=== PATIENT | female | born 1985 | race Caucasian/White ===

== ENCOUNTER → 2017-09-14 09:11 | Outpatient (CLI) | payer MEDICAID, SELFPAY ==
--- NOTE | 2017-09-14 09:18 | MRI_ITS ---
STUDY: MRI BRAIN WITH AND WITHOUT CONTRAST REASON FOR EXAM: Female, 32 years old. Follow-up exam. Multiple sclerosis TECHNIQUE: Standardized multiplanar fat and water weighted pulse sequences were obtained. 5 ml of Gadavist contrast material was administered intravenously for the contrast portion of the examination. COMPARISON: June 23, 2016 MRI exam. FINDINGS: No evidence for shift of midline structures, mass effect or compression of ventricles noted. No acute intra or extra-axial hemorrhage is seen. No abnormal intracranial fluid collections identified. There is redemonstration of scattered foci of T2/FLAIR hyperintensity in the periventricular and subcortical white matter noted which appear essentially similar to previous examination likely related with patient's known history of demyelinating disease. Infratentorial lesions are also seen in the posterior aspect of the aaliyah. No associated enhancement is seen to suggest active demyelinating plaques No discrete mass in the posterior fossa. Minimal mucosal thickening of the ethmoid air cells. Normal signal intensity of the calvarium. Skull base vascular flow voids are patent. MRI/Brain W/WO Contrast IMPRESSION: Stable appearing T2/FLAIR hyperintense signal intensity foci in the supra and infratentorial compartment consistent with patient's known history of demyelinating disease. No active demyelinating plaques seen. Electronically Signed: Alex Siegel, at 12:12 EST Tel , Service support ,
== END ==
PROVIDERS: Family Provider Internal Medicine; PCP Internal Medicine; Visit Provider Internal Medicine
DX: G35 Multiple sclerosis (principal)
CPT/HCPCS: 70553; A9585

== ENCOUNTER → 2018-08-21 13:03 | Outpatient (CLI) | payer OTHER, MEDICAID, SELFPAY ==
[2018-08-21 13:25] VITALS: BP 137/81; PULSE 86; RESP 16; TEMP 37.3; O2SAT 99; BMI 18.6
== END ==
PROVIDERS: Family Provider Internal Medicine; PCP Internal Medicine; Visit Provider Internal Medicine
DX: G35 Multiple sclerosis (principal)
CPT/HCPCS: 96365; J7050; A4216; J2930

== ENCOUNTER → 2018-08-22 10:14 | Outpatient (CLI) | payer OTHER, MEDICAID, SELFPAY ==
[2018-08-21 13:25] VITALS: BMI 18.6
[2018-08-22 11:01] VITALS: BP 151/94; PULSE 80; RESP 16; TEMP 36.4; O2SAT 98; BMI 18.6
== END ==
PROVIDERS: Family Provider Internal Medicine; PCP Internal Medicine; Referring Provider Internal Medicine; Visit Provider Internal Medicine
DX: G35 Multiple sclerosis (principal)
CPT/HCPCS: 96365; J7050; J2930

== ENCOUNTER 2018-08-23 10:16 | Outpatient (CLI) | payer OTHER, MEDICAID, SELFPAY ==
[2018-08-21 13:25] VITALS: BMI 18.6
[2018-08-22 11:01] VITALS: BMI 18.6
[2018-08-23 10:31] VITALS: BP 135/94; PULSE 74; RESP 14; TEMP 37.1; O2SAT 100
[2018-08-23] MEDS: 0.9% NaCl Peripheral Flush Adult/Peds IV (12:43)
== END 2018-08-23 12:40 | disposition home or self-care (01) ==
LOC: MEDOUTP 10:16 → MS3 10:23
PROVIDERS: Family Provider Internal Medicine; PCP Internal Medicine; Referring Provider Internal Medicine; Visit Provider Internal Medicine
DX: G35 Multiple sclerosis (principal)
CPT/HCPCS: 96365; A4216; J2930

== ENCOUNTER 2018-08-24 10:16 | Outpatient (CLI) | payer OTHER, MEDICAID, SELFPAY ==
[2018-08-21 13:25] VITALS: BMI 18.6
[2018-08-22 11:01] VITALS: BMI 18.6
[2018-08-24 10:41] VITALS: BP 123/78; PULSE 85; RESP 18; TEMP 37.1; O2SAT 98
[2018-08-24] MEDS: 0.9% NaCl Peripheral Flush Adult/Peds IV (12:07)
== END 2018-08-24 12:03 | disposition home or self-care (01) ==
LOC: MEDOUTP 10:16 → MS3 10:17
PROVIDERS: Family Provider Internal Medicine; PCP Internal Medicine; Referring Provider Internal Medicine; Visit Provider Internal Medicine
DX: G35 Multiple sclerosis (principal)
CPT/HCPCS: 96365; A4216; J2930

== ENCOUNTER → 2018-08-25 10:00 | Outpatient (CLI) | payer OTHER, MEDICAID, SELFPAY ==
[2018-08-21 13:25] VITALS: BMI 18.6
[2018-08-22 11:01] VITALS: BMI 18.6
[2018-08-25 10:21] VITALS: BP 132/88; PULSE 72; RESP 18; TEMP 37.7; O2SAT 99; BMI 18.6
== END ==
PROVIDERS: Family Provider Internal Medicine; PCP Internal Medicine; Referring Provider Internal Medicine; Visit Provider Internal Medicine
DX: G35 Multiple sclerosis (principal)
CPT/HCPCS: 96365; J7050; A4216; J2930

== ENCOUNTER → 2019-04-13 17:47 | Outpatient (CLI) | payer OTHER, SELFPAY ==
[2018-08-25 10:21] VITALS: BMI 18.6
[2019-04-16 14:55] LABS: HPV Reflexed? NOT INDICATED
== END ==
PROVIDERS: Family Provider Family Medicine; PCP Family Medicine; Referring Provider Nurse Practitioner Adult Health; Visit Provider Nurse Practitioner Adult Health
DX: Z01.419 Encounter for gynecological examination (general) (routine) without abnormal findings (principal)
CPT/HCPCS: 88175; G0145

== ENCOUNTER → 2019-05-02 07:27 | Outpatient (CLI) | payer OTHER, SELFPAY ==
[2018-08-25 10:21] VITALS: BMI 18.6
--- NOTE | 2019-05-02 07:41 | MRI_ITS ---
STUDY: MRI BRAIN WITH AND WITHOUT CONTRAST REASON FOR EXAM: Female, 33 years old. Paresthesias, possible sclerosis. TECHNIQUE: Standardized multiplanar fat and water weighted pulse sequences were obtained. IV Dotarem 10 was administered for the contrast portion of the examination. COMPARISON: 14 September 2017 FINDINGS: There are 2 new enhancing approximately 5 mm lesions along the anterior periventricular subependymoma white matter of the right frontal lobe along the lateral surface of the lateral ventricles. There is a new enhancing left internal capsule genu 1 cm lesion. There is extensive disease burden of multiple sclerosis with greater than 25 lesions and at least 5 lesions greater than 1 cm. The number and size of lesions appears mildly increased compared to prior. There is no acute infarct, hydrocephalus or herniation. Vascular structures are preserved. MRI/Brain W/WO Contrast IMPRESSION: 1. Active disease progression. 2. Three new enhancing lesions of multiple sclerosis. 3. Severe chronic disease burden multiple sclerosis. Electronically Signed: Elaine Giles, at 16:26 EDT Tel , Service support ,
--- NOTE | 2019-05-02 07:41 | MRI_ITS ---
STUDY: MRI CERVICAL SPINE WITH AND WITHOUT CONTRAST REASON FOR EXAM: Female, 33 years old. Multiple sclerosis TECHNIQUE: Standardized fat and water weighted pulse sequences were obtained in the sagittal and axial following administration of IV Dotarem 10. COMPARISON: None FINDINGS: Craniocervical junction and cervical spine are intact and aligned. Marrow, paraspinous soft tissues are normal. The canal is patent at all levels. There are multiple cord lesions. C2 level lesion measures 1.3 cm and involves the central posterior portion of the cord. C5 lesion measures 6 mm. C6 lesion is ill-defined and measures 1.2 cm and involves the left central portion of the cord. Smaller lesions are present at other levels. There are no enhancing lesions. Spinal cord is normal in size and shape. MRI/Spine Cervical W/WO Contrast IMPRESSION: 1. No enhancing cord lesions. 2. Advanced lesion burden and possible multiple sclerosis. Electronically Signed: Elaine Giles, at 16:37 EDT Tel , Service support ,
--- NOTE | 2019-05-02 08:33 | US_ITS ---
STUDY: THYROID ULTRASOUND REASON FOR EXAM: Female, 33 years old. Thyroid nodule TECHNIQUE: Ultrasound evaluation of the thyroid was performed with real-time and static ryder-scale imaging. COMPARISON: None. FINDINGS: RIGHT LOBE: The right lobe of the thyroid gland measures 5.7 x 1.4 x 1.8 cm. There is a homogeneous echotexture. Anechoic cyst of the right thyroid lobe measures 4 mm. The inferior right thyroid lobe, there is a 1.2 x 1.1 cm solid, isoechoic nodule with some small cystic transformation foci (TIRADS3). LEFT LOBE: The left lobe of the thyroid gland measures 5.5 x 1.6 x 1.6 cm. There is a homogeneous echotexture. There are no demonstrated solid, cystic or complex lesions. ISTHMUS: The isthmus measures 3.0 mm. Completely solid nodule of the left side of the isthmus measures 1.9 x 1.4 x 0.9 cm with smooth margins and mild amount of vascular flow. No definitive microcalcifications. TIRADS 4. The regional lymph nodes are normal. US/Thyroid IMPRESSION: Multinodular thyroid gland with the largest measuring 1.9 cm (left side isthmus). FNA sampling recommended. Electronically Signed: Barrett Yuan MD (Brooks) at 16:37 EDT , Service support ,
== END ==
PROVIDERS: Family Provider Family Medicine; PCP Family Medicine; Referring Provider Internal Medicine; Visit Provider Internal Medicine
DX: E04.1 Nontoxic single thyroid nodule (principal); G35 Multiple sclerosis
CPT/HCPCS: 70553; 72156; 76536; A9575

== ENCOUNTER → 2019-06-11 08:59 | Outpatient (CLI) | payer OTHER, SELFPAY ==
[2019-06-11 08:30] VITALS: BMI 18.6
[2019-06-11 10:57] LABS: Free T3 2.6 pg/mL (2.18-3.98); T4 Total, Thyroxin 9.2 ug/dL (4.8-13.9); Thyroid Stim Hormone (TSH) 0.34 uIU/mL (0.358-3.74)
== END ==
PROVIDERS: Family Provider Family Medicine; PCP Family Medicine; Referring Provider Surgery; Visit Provider Surgery
DX: E04.1 Nontoxic single thyroid nodule (principal)
CPT/HCPCS: 36415; 84436; 84443; 84481

== ENCOUNTER → 2019-06-16 12:30 | Outpatient (CLI) | payer OTHER, SELFPAY ==
[2019-06-16 12:25] VITALS: BMI 18.6
--- NOTE | 2019-06-16 12:30 | ASPS_PTH ---
PATIENT: ISRAEL GALE LOC: [facility] U#:[id number] AGE/SX: 39/F ROOM: RE06/16/[address]: Dr. Jomar Calero MD : 1985 BED: DIS: SPEC #: [id number] RECD: 06/17/19 07:42 STATUS: TYLER PAVAN #: [id number] JN: 06/16/19 12:[address]: Jomar Calero DEPT: CYTOLOGY RECD BY: Azul Garner ENTERED: 06/17/19 09:57 SP TYPE: ASPIRATION OTHR DR: Dr. Adonis Mays MD Tissues: A - Thyroid gland, NOS B - Thyroid gland, NOS Procedures: Special Stain Group II Cytology Other HEADER OPERATION: Bilateral thyroid FNA PRE-OP DIAGNOSIS: Bilateral thyroid nodules TISSUE SUBMITTED: A. Left thyroid, B. Right thyroid DIAGNOSIS CYTOLOGY A. Fine needle aspiration of left thyroid nodule (smears): Adequate for evaluation. Benign, consistent with benign follicular nodule. B. Fine needle aspiration of right thyroid nodule (smears): Adequate for evaluation. 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 AM:maria l 06/17/19 COMMENT Immediate cytologic evaluation to determine adequacy is not applicable. Clinical correlation is suggested. Case has been reviewed in consultation with Dr. Nunez who concurs with the above diagnosis. IDC:SJ CYTOLOGY STUDY Slides are reviewed. CYTOLOGY GROSS A. Received are 6 smears labeled with the patient's name and designated per the requisition as left thyroid. Submitted for staining. B. Received are 6 smears labeled with the patient's name and designated per the requisition as right thyroid. Submitted for staining. /CC:cc 06/17/19 TC:? CPT: 68528 x2
== END ==
PROVIDERS: Family Provider Family Medicine; PCP Family Medicine; Visit Provider Surgery
DX: E04.2 Nontoxic multinodular goiter (principal)
CPT/HCPCS: 88161; 88313

== ENCOUNTER 2019-08-05 11:20 | Observation (INO) | payer OTHER, SELFPAY ==
[2019-06-26 13:11] VITALS: BMI 18.6
[2019-08-03 08:24] VITALS: BMI 18.6
--- NOTE | 2019-08-03 08:50 | HP_ITS ---
Intake Vital Signs 08/03/19 BMI 18.6 08/03/19 Height 5 ft 6 in 08/03/19 Weight: 117 lb 08/03/19 BMI 18.8 08/03/19 BP 128/87 H 08/03/19 Blood Pressure Location Rt brachial 08/03/19 Position Sitting 08/03/19 Respiration 18 Intake Visit Reasons: update h&p totla thyroid Rc 1-15 Chief Complaint: Follow up thyroid biopsy Brake Holder Required: No Is patient in pain?: No Allergies No Known Allergies Allergy (Verified 08/03/19 08:24) Medications Armodafinil [Nuvigil] 250 mg PO DAILY 08/22/18 [History Confirmed 08/03/19] Cholecalciferol (Vitamin D3) [Vitamin D3] 2,000 unit PO DAILY 08/22/18 [History Confirmed 08/03/19] Duloxetine HCl 60 mg PO DAILY 08/22/18 [History Confirmed 08/03/19] Multivitamin [One Daily Multivitamin] 1 ea PO DAILY 08/22/18 [History Confirmed 08/03/19] Ocrelizumab [Ocrevus] 300 mg IV .Q6M 07/29/19 [History Confirmed 08/03/19] PFSH Medical History Multiple sclerosis (Acute) Multiple thyroid nodules (Acute) Anxiety (Acute) Depression (Acute) Numbness and tingling (Acute) Fatigue (Acute) Surgical History Hx of wisdom tooth extraction (Acute) History of loop electrical excision procedure (LEEP) (Acute) Status post biopsy of thyroid gland (Acute ~05/2019) Family History Mother No problems noted. Social History (Updated 08/03/19 @ 08:50 by Krystle Goldman PA-C) Smoking Status: Never smoker second hand exposure: No alcohol intake: current alcohol intake frequency: a few times a month substance use type: does not use caffeine: Yes what type of physical activity do you participate in: none frequency: does not exercise HPI HPI HPI: ISRAEL MANRIQUEZ, is a 34 F who presents to the office today for HPI HPI Surgical H&P: Yes HPI: ISRAEL MANRIQUEZ, is a 34 F who presents to the office today for an update history and physical for an upcoming total thyroidectomy procedure. Patient denies recent hospitalizations or illnesses. Patient does have M.S. Her neurologist has been contacted and recommended the patient stay on her current medication regimen for the surgery. She denies previous myocardial infarction, stroke, or complications with anesthesia. Patient's previous history per Dr. Calero: ISRAEL MANRIQUEZ, is a 33 F who presents to the office today for thyroid nodules and cytology. My previous notes reflect the following. She had incidental isthmus nodule in the left and lower pole right thyroid nodule identified on his CT scan performed because of a head injury. On June 16, 2019 I did a fine needle aspiration of each. The more suspicious left isthmus nodule is a benign follicular nodule. The solid cystic lower pole right thyroid nodule is atypical follicular cells of undetermined significance and Hurthle cell features. The patient has MS. She has a new neurologist Dr. Oneil Reardon. [phone]. She states that he will be starting her on a new medication with first dosing July 10, 2019 and second dose in July 24, 2019 and then every 6 months HPI: ISRAEL MANRIQUEZ, is a 33 F who presents to the office today for surgical consultation regarding a left thyroid nodule. The patient is referred by Dr. Adonis Mays and a written compromise surgical consult recommendations will be returned to him. Patient is a 33-year-old female. She is accompanied by her mother today. Chronic medical condition includes multiple sclerosis. While swimming she hit her head on the bottom of pool and this stimulated investigation into her neck. And so doing thyroid abnormality was identified. To assist with this on May 02, 2019 at the [facility] she had a thyroid ultrasound performed. The right lobe measured 5.7 cm in length. In the upper pole there is a 4 mm cyst. In the lower pole there is a 1.2 x 1.1 cm solid nodule with some cystic transformation. TIRADS3 The left thyroid gland measures 5.5 cm. No demonstrated nodule. The isthmus has a solid nodule in the left measuring 1.9 x 1.4 x 0.9 cm with some slight vascular flow.Tirads4 She has no consistent symptoms of hoarseness or neck pain or dysphasia. She does have intermittent symptoms of all of these. She has not had any head neck radiation treatment. [facility] Services [address] [place] [address] Thyroid MR#: [id number]:[id number] Name: ISRAEL GALE [facility] #:[id number] : 1985F 33 From: Barrett Yuan MD PCP:Adonis Mays MD Status:REG CLI Study:Thyroid Date of Exam:05/02/19 Exam#[id number] Ordering Dr: Adonis Mays MD STUDY: THYROID ULTRASOUND REASON FOR EXAM: Female, 33 years old. Thyroid nodule TECHNIQUE: Ultrasound evaluation of the thyroid was performed with real-time and static ryder-scale imaging. COMPARISON: None. FINDINGS: RIGHT LOBE: The right lobe of the thyroid gland measures 5.7 x 1.4 x 1.8 cm. There is a homogeneous echotexture. Anechoic cyst of the right thyroid lobe measures 4 mm. The inferior right thyroid lobe, there is a 1.2 x 1.1 cm solid, isoechoic nodule with some small cystic transformation foci (TIRADS3). LEFT LOBE: The left lobe of the thyroid gland measures 5.5 x 1.6 x 1.6 cm. There is a homogeneous echotexture. There are no demonstrated solid, cystic or complex lesions. ISTHMUS: The isthmus measures 3.0 mm. Completely solid nodule of the left side of the isthmus measures 1.9 x 1.4 x 0.9 cm with smooth margins and mild amount of vascular flow. No definitive microcalcifications. TIRADS 4. The regional lymph nodes are normal. US/Thyroid IMPRESSION: Multinodular thyroid gland with the largest measuring 1.9 cm (left side isthmus). FNA sampling recommended. Electronically Signed: Barrett Yuan MD (Brooks) at 16:37 EDT , Service support , Spec Date: 06/16/[address] [facility] [address]: [facility] OPERATION: Bilateral thyroid FNAPRE-OP DIAGNOSIS: Bilateral thyroid nodulesTISSUE SUBMITTED: A. Left thyroid, B. Right thyroid DIAGNOSIS CYTOLOGY A. Fine needle aspiration of left thyroid nodule (smears):Adequate for evaluation.Benign, consistent with benign follicular nodule. B. 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 ROS General General: Yes fatigue; no weight change, appetite, colon cancer, breast cancer or weakness HEENT HEENT: No difficulty swallowing, eye injury, eye surgery, swollen glands or hoarseness Endo Endocrine: No thyroid disease, diabetes mellitus, thyroid cancer, Hair loss, heat intolerance or cold intolerance Skin Skin: No rash or changing moles Musc Musculoskeletal: No back problems, arthritis, rheumatoid arthritis, gout or joint pain Cardio Cardiovascular: No murmur, pacemaker, heart disease, atrial fibrillation, high blood pressure, heart attack, heart stent, palpitations, shortness of breat with exertion or chest pain Psych Psychiatric: Yes depression and anxiety; no hearing voices Resp Respiratory: No shortness of breath, No sleep apnea, No cough, No COPD, No asthma, No emphysema, No wheezing Gastro Gastrointestinal: No abdominal pain, No nausea or vomiting, No diarrhea, No constipation, No blood in stool, No acid reflux, No hemorrhoids, No ulcers, No gallbladder problem, No black,tarry stools Leoncio Hematologic: No blood thinners, No blood disorders, No bleeding, No anemia, No blood clots Neuro Neurologic: No weakness Exam Const General: cooperative, healthy appearing, comfortable, no acute distress [facility] Head: normal to inspection Eyes General: appearance normal, both eyes and all related structures Neck Neck: normal visual inspection Neck mass: No Resp Effort & Inspection: normal respiratory effort Auscultation: clear to auscultation bilaterally Cardio Palpation: normal PMI Rate: regular rate Rhythm: regular rhythm Heart Sounds: no murmurs GI Inspection: normal to inspection Palpation: soft Auscultation: normal bowel sounds Skin General: no rashes or lesions noted Neuro General: no focal motor deficits, CN's II-XI intact bilaterally Extrem General: normal to inspection Psych Appearance: grossly normal Affect: normal affect Assessment & Plan Problems 1. Multiple thyroid nodules E04.2 2. Multiple sclerosis G35 Plan Dr. Calero will plan to perform a total thyroidectomy. Procedure details, risks and benefits have been reviewed. Patient has had the opportunity to ask and have questions answered. Patient verbally understands and agrees with the plan. Coding Level of Care Code No Charge Diagnoses Multiple thyroid nodules E04.2 Multiple sclerosis G35 08/03/19 0850 <Electronically signed by Krystle light PA-C> Date _ Krystle Goldman PA-C
[2019-08-05] VITALS (12 sets, daily range): BP systolic 97–133; BP diastolic 58–91; PULSE 61–97; RESP 14–18; TEMP 36.6–37.3; O2SAT 96–100; BMI 19.9
--- NOTE | 2019-08-05 | IMM_PTH ---
PATIENT: ISRAEL GALE LOC: [facility] U#:[id number] AGE/SX: 34/F ROOM: MS316 RE08/05/[address]: Dr. Jomar Calero MD : 1985 BED: 1 DIS: 08/06/2019 SPEC #: [id number] RECD: 08/07/19 13:31 STATUS: SOUVangie REQ #: [id number] JN: 08/05/19 00:[address]: Jomar Calero DEPT: IMMUNOHISTOCHEMISTRY RECD BY: Herlinda Olmos ENTERED: 08/07/19 13:32 SP TYPE: IMMUNO OTHR DR: Dr. Adonis Mays MD Tissues: B - Thyroid gland, NOS Procedures: HBME (initial) CD56 (add) CK19 (add) GAL-3 (add) Comments: @ Specimen number changed from [id number] to [id number] @ on 08/07/19 at 1341 by RGOOD. PHYSICIAN & [address] [address] SPECIMEN INFORMATION: Tissue Source: B - Total thyroid Clinical Info: Multiple thyroid nodules Specimen Number: [id number] B7 CPT code: 01268, 29204 x3 METHODOLOGY: Deparaffinized sections of prefer/formalin-fixed tissue or PAP/DQ stained slides are incubated with monoclonal/polyclonal antibodies/oligonucleotide probes. Localization is made via biotin free immunoperoxidase method. Appropriate controls are performed and reacted as expected. Results on target cell population are indicated in the following table: RESULTS: ANTIBODY / CLONE RESULT Block B7 HBME1 (HBME-1) negative CK19 (A53-B/A2.26) positive, focal GAL3 (9C4) negative CD56 (123C3.D5) positive These tests were developed and their performance characteristics determined by [facility]. They may not have been cleared or approved by the U.S. Food and Drug Administration. The FDA has determined that such clearance or approval is not necessary. The above immunohistochemical/dualISH markers are ordered and reviewed by the Pathologist. INTERPRETATION: B. Thyroid, total thyroidectomy: Consistent with adenomatoid colloid nodule. SJ:maria l 08/10/19
--- NOTE | 2019-08-05 | THYROID_PTH ---
PATIENT: ISRAEL GALE LOC: [facility] U#:[id number] AGE/SX: 34/F ROOM: MS316 RE08/05/[address]: Dr. Jomar Calero MD : 1985 BED: 1 DIS: 08/06/2019 SPEC #: [id number] RECD: 08/05/19 08:31 STATUS: TYLER PAVAN #: [id number] JN: 08/05/19 00:[address]: Jomar Calero DEPT: SURGICAL PATHOLOGY RECD BY: Herlinda Olmos ENTERED: 08/05/19 08:57 SP TYPE: THYROID OTHR DR: Dr. Adonis Mays MD Tissues: A - Thyroid gland, NOS B - Thyroid gland, NOS Procedures: Frozen Section (charge) Surgery Specimen Level IV Surgery Specimen Level V HEADER OPERATION: Total thyroidectomy PRE-OP DIAGNOSIS: Multiple thyroid nodules E04.2 TISSUE SUBMITTED: A - Left superior thyroid tissue for FS at 0825, B - Total thyroid, stitch chance superior right FROZEN SECTION DIAGNOSIS A. Left superior thyroid tissue, biopsy: Thyroid tissue. SJ:maria l 08/05/19 MICROSCOPIC DIAGNOSIS A. Superior thyroid tissue: Thyroid tissue. B. Thyroid, total thyroidectomy: Multinodular goiter with adenomatoid nodules. See comment. PURNIMA:maria l 08/07/19 COMMENT B. Immunohistochemistry ([id number]) supports the above diagnosis. Please make reference to previous specimen ([id number]) fine needle aspiration of left thyroid nodule with diagnosis of benign, consistent with benign follicular nodule and fine needle aspiration of right thyroid nodule with diagnosis of atypical follicular cells of undetermined clinical significance with H?rthle cell features. Case has been reviewed in consultation with Dr. Nicholson who concurs with the above diagnosis. IDC:AM MICROSCOPIC DESCRIPTION Slides are reviewed. GROSS DESCRIPTION A - Received fresh for frozen section diagnosis labeled with the patient's name is a specimen designated left superior thyroid tissue. The specimen consists of a piece of mack soft tissue measuring 0.5 x 0.3 x 0.1 cm. The entire specimen is submitted for frozen section diagnosis in one cassette. B - Received in fixative is one container labeled with the patient's name and designated total thyroid, stitch chance superior right. The specimen consists of a total thyroidectomy specimen weighing 20.9 gm. The right lobe measures 4.5 x 2.5 x 2.5 cm and the left lobe measures 5.5 x 3 x 1.5 cm and the isthmus measures 0.2 x 0.2 x 0.2 cm. No external parathyroid tissue is identified. The specimen is inked as follows: posterior surface right lobe, left lobe and isthmus - black, anterior surface right lobe - blue, left lobe - green and isthmus - yellow. Sections reveal a nodule in the right lobe in the inferior portion measuring 1 x 0.5 x 0.5 cm in diameter. Sections of the left lobe reveal a mack nodule measuring 2 x 2 x 1 cm in the inferior portion of the lobe. Sections of the isthmus do not reveal any mass lesion. The entire specimen is submitted in 18 cassettes as follows: 1 - isthmus, 2-8 - right lobe (2 containing most superior portion of the lobe and 8 containing most inferior portion of the lobe), 9-18 - left lobe (9?containing most superior portion of the lobe and 18 containing most inferior portion of the lobe). / PURNIMA:maria l 08/06/19 TC:5 CPT: 17685, 29964, 01672
--- NOTE | 2019-08-05 05:51 | HP.PCM_ITS ---
Problem List (1) Multiple thyroid nodules Status: Acute History and Physical Date of Admission: 08/05/19 Intake Visit Reasons: update h&p totla thyroid Rc 15 Chief Complaint: Follow up thyroid biopsy Talk Show Host Required: No Is patient in pain?: No Allergies No Known Allergies Allergy (Verified 08/03/19 08:24) Medications Armodafinil [Nuvigil] 250 mg PO DAILY 08/22/18 [History Confirmed 08/03/19] Cholecalciferol (Vitamin D3) [Vitamin D3] 2,000 unit PO DAILY 08/22/18 [History Confirmed 08/03/19] Duloxetine HCl 60 mg PO DAILY 08/22/18 [History Confirmed 08/03/19] Multivitamin [One Daily Multivitamin] 1 ea PO DAILY 08/22/18 [History Confirmed 08/03/19] Ocrelizumab [Ocrevus] 300 mg IV .Q6M 07/29/19 [History Confirmed 08/03/19] PFSH Medical History Multiple sclerosis (Acute) Multiple thyroid nodules (Acute) Anxiety (Acute) Depression (Acute) Numbness and tingling (Acute) Fatigue (Acute) Surgical History Hx of wisdom tooth extraction (Acute) History of loop electrical excision procedure (LEEP) (Acute) Status post biopsy of thyroid gland (Acute ~05/2019) Family History Mother No problems noted. Social History (Updated 08/03/19 @ 08:50 by Krystle Goldman PA-C) Smoking Status: Never smoker second hand exposure: No alcohol intake: current alcohol intake frequency: a few times a month substance use type: does not use caffeine: Yes what type of physical activity do you participate in: none frequency: does not exercise HPI HPI HPI: ISRAEL MANRIQUEZ, is a 34 F who presents to the office today for HPI HPI Surgical H&P: Yes HPI: ISRAEL MANRIQUEZ, is a 34 F who presents to the office today for an update history and physical for an upcoming total thyroidectomy procedure. Patient denies recent hospitalizations or illnesses. Patient does have M.S. Her neurologist has been contacted and recommended the patient stay on her current medication regimen for the surgery. She denies previous myocardial infarction, stroke, or complications with anesthesia. Patient's previous history per Dr. Calero: ISRAEL MANRIQUEZ, is a 33 F who presents to the office today for thyroid nodules and cytology. My previous notes reflect the following. She had incidental isthmus nodule in the left and lower pole right thyroid nodule identified on his CT scan performed because of a head injury. On June 16, 2019 I did a fine needle aspiration of each. The more suspicious left isthmus nodule is a benign follicular nodule. The solid cystic lower pole right thyroid nodule is atypical follicular cells of undetermined significance and Hurthle cell features. The patient has MS. She has a new neurologist Dr. Oneil Reardon. [phone]. She states that he will be starting her on a new medication with first dosing July 10, 2019 and second dose in July 24, 2019 and then every 6 months HPI: ISRAEL MANRIQUEZ, is a 33 F who presents to the office today for surgical consultation regarding a left thyroid nodule. The patient is referred by Dr. Adonis Mays and a written compromise surgical consult recommendations will be returned to him. Patient is a 33-year-old female. She is accompanied by her mother today. Chronic medical condition includes multiple sclerosis. While swimming she hit her head on the bottom of pool and this stimulated investigation into her neck. And so doing thyroid abnormality was identified. To assist with this on May 02, 2019 at the [facility] she h ad a thyroid ultrasound performed. The right lobe measured 5.7 cm in length. In the upper pole there is a 4 mm cyst. In the lower pole there is a 1.2 x 1.1 cm solid nodule with some cystic transformation. TIRADS3 The left thyroid gland measures 5.5 cm. No demonstrated nodule. The isthmus has a solid nodule in the left measuring 1.9 x 1.4 x 0.9 cm with some slight vascular flow.Tirads4 She has no consistent symptoms of hoarseness or neck pain or dysphasia. She does have intermittent symptoms of all of these. She has not had any head neck radiation treatment. [facility] Imaging Services [address] [place] [address] Thyroid MR#: [id number] Name: ISRAEL GALE [facility] #:[id number] : 1985F [id number] From: Barrett Yuan MD PCP:Adonis Mays MD Status:REG CLI Study:Thyroid Date of Exam:05/02/19 Exam#[id number] Ordering Dr: Adonis Mays MD STUDY: THYROID ULTRASOUND REASON FOR EXAM: Female, 33 years old. Thyroid nodule TECHNIQUE: Ultrasound evaluation of the thyroid was performed with real-time and static ryder-scale imaging. COMPARISON: None. FINDINGS: RIGHT LOBE: The right lobe of the thyroid gland measures 5.7 x 1.4 x 1.8 cm. There is a homogeneous echotexture. Anechoic cyst of the right thyroid lobe measures 4 mm. The inferior right thyroid lobe, there is a 1.2 x 1.1 cm solid, isoechoic nodule with some small cystic transformation foci (TIRADS3). LEFT LOBE: The left lobe of the thyroid gland measures 5.5 x 1.6 x 1.6 cm. There is a homogeneous echotexture. There are no demonstrated solid, cystic or complex lesions. ISTHMUS: The isthmus measures 3.0 mm. Completely solid nodule of the left side of the isthmus measures 1.9 x 1.4 x 0.9 cm with smooth margins and mild amount of vascular flow. No definitive microcalcifications. TIRADS 4. The regional lymph nodes are normal. US/Thyroid IMPRESSION: Multinodular thyroid gland with the largest measuring 1.9 cm (left side isthmus). FNA sampling recommended. Electronically Signed: Barrett Yuan MD (Brooks) at 16:37 EDT , Service support , Spec Date: 06/16/[address] [facility] [address]: TOLU Etiennepec Type: ASP OPERATION: Bilateral thyroid FNAPRE-OP DIAGNOSIS: Bilateral thyroid nodulesTISSUE SUBMITTED: A. Left thyroid, B. Right thyroid DIAGNOSIS CYTOLOGY A. Fine needle aspiration of left thyroid nodule (smears):Adequate for evaluation.Benign, consistent with benign follicular nodule. B. 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 ROS General General: Yes fatigue; no weight change, appetite, colon cancer, breast cancer or weakness HEENT HEENT: No difficulty swallowing, eye injury, eye surgery, swollen glands or hoarseness Endo Endocrine: No thyroid disease, diabetes mellitus, thyroid cancer, Hair loss, heat intolerance or cold intolerance Skin Skin: No rash or changing moles Musc Musculoskeletal: No back problems, arthritis, rheumatoid arthritis, gout or joint pain Cardio Cardiovascular: No murmur, pacemaker, heart disease, atrial fibrillation, high blood pressure, heart attack, heart stent, palpitations, shortness of breat with exertion or chest pain Psych Psychiatric: Yes depression and anxiety; no hearing voices Resp Respiratory: No shortness of breath, No sleep apnea, No cough, No COPD, No asthma, No emphysema, No wheezing Gastro Gastrointestinal: No abdominal pain, No nausea or vomiting, No diarrhea, No constipation, No blood in stool, No acid reflux, No hemorrhoids, No ulcers, No gallbladder problem, No black,tarry stools Leoncio Hematologic: No blood thinners, No blood disorders, No bleeding, No anemia, No blood clots Neuro Neurologic: No weakness Exam Const General: cooperative, healthy appearing, comfortable, no acute distress [facility] Head: normal to inspection Eyes General: appearance normal, both eyes and all related structures Neck Neck: normal visual inspection Neck mass: No Resp Effort & Inspection: normal respiratory effort Auscultation: clear to auscultation bilaterally Cardio Palpation: normal PMI Rate: regular rate Rhythm: regular rhythm Heart Sounds: no murmurs GI Inspection: normal to inspection Palpation: soft Auscultation: normal bowel sounds Skin General: no rashes or lesions noted Neuro General: no focal motor deficits, CN's II-XI intact bilaterally Extrem General: normal to inspection Psych Appearance: grossly normal Affect: normal affect Assessment & Plan Problems 1. Multiple thyroid nodules E04.2 2. Multiple sclerosis G35 Plan Dr. Calero will plan to perform a total thyroidectomy. Procedure details, risks and benefits have been reviewed. Patient has had the opportunity to ask and have questions answered. Patient verbally understands and agrees with the plan. Coding Level of Care Code No Charge Diagnoses Multiple thyroid nodules E04.2 Multiple sclerosis G35 08/03/19 0850 <Electronically signed by Krystle light PA-C> Date _ Krystle Goldman PA-C Cosigner Signature: Date (if applicable) CC: Adonis Mays MD ~ I have re-examined the patient. There are no clinical changes since date of exam.
[2019-08-05 05:53] LABS: Internal QC Validated? YES +Cl - CLEAR BKGD; Pregnancy, Urine Negative Negative
[2019-08-05 05:58] LABS: Hematocrit 40.5 % (37-47); Hemoglobin 13.6 g/dL (12.0-15.0); Mean Corp Hgb Conc 33.6 g/dL (32-36); Mean Corpuscular Hgb 32.8 pg (27.0-32.0); Mean Corpuscular Volume 97.6 fL (81-99); Mean Platelet Vol. 9.4 fl (6.2-12.0); Platelet Count 381 K/mm3 (150-450); RBC Distribution Width CV 11.8 % (11.6-14.6); RBC Distribution Width SD 42.4 fl (35.1-43.9); Red Blood Count 4.15 M/mm3 (4.2-5.4)
[2019-08-05] MEDS: Lactated Ringers 1,000 ML 100 ML IV ×2 (06:05→08:10)
[2019-08-05 06:09] LABS: International Normalized Ratio 1.1; Prothrombin Time (Protime)PT. 13.8 SECONDS (11.7-14.9)
[2019-08-05 06:10] LABS: Partial Thromboplast Time 24.8 Seconds (24.1-36.2)
[2019-08-05 06:16] LABS: AST(SGOT) 7 U/L (15-37); Alanine Aminotransfer ALT/SGPT 32 U/L (13-56); Albumin, Serum 4.1 g/dL (3.2-5.0); Alkaline Phosphatase 51 U/L (45-117); Bilirubin, Direct 0.15 mg/dL (0.00-0.30); Phosphorus 4.1 mg/dL (2.5-4.9); Protein, Total 7.1 g/dL (6.4-8.2)
--- NOTE | 2019-08-05 07:06 | DCINST_ITS ---
<Jomar Calero - Last Filed: 08/05/19 07:06> Discharge Diet: Light diet - advance as tolerated - if you have questions about your diet instructions, please talk to you doctor. Discharge Activity: May Not Drive - for 3-5 days or while taking narcotic pain medicine. May shower in (days): 1 Lifting Restrictions: 10 pounds Call your doctor if your incision/area has: Continuous Slow Oozing, Sudden Increased Bleeding, Increased Pain/ Swelling, Increased Redness, Foul Smelling Discharge Call your doctor if you observe: Fever of 101 or Higher Suture Line Care: Avoid Pulling/Pushing, Avoid Pinching/Bending Additional Dressing/Incision Instructions:: The white tape dressing may be removed and you may shower. You may protect the incision with a bandaide or gauze and tape to avoid clothing irritation Allergies/Adverse Reactions: Allergies No Known Allergies Allergy (Verified 08/05/19 05:52) Medications to take at Discharge Armodafinil [Nuvigil] 250 mg PO DAILY 08/22/18 Cholecalciferol (Vitamin D3) [Vitamin D3] 2,000 unit PO DAILY 08/22/18 Duloxetine HCl 60 mg PO DAILY 08/22/18 Multivitamin [One Daily Multivitamin] 1 ea PO DAILY 08/22/18 Ocrelizumab [Ocrevus] 300 mg IV .Q6M 07/29/19 Levothyroxine [Synthroid] 75 mcg PO DAILY #90 tab 08/05/19 Calcitriol [Rocaltrol] 0.5 mcg PO BID 7 Days #28 cap 08/06/19 Calcium Citrate/Vitamin D3 [Calcium Citrate-Vit D3 Caplet] 2 ea PO TIDCM 7 Days #42 tab 08/06/19 Cholecalciferol (VIT D3) [Vitamin D3] 3,000 unit PO DAILYCM 7 Days #21 tab 08/06/19 Hydrocodone Bitart/Apap 5-325 [[place] 5MG-325MG] 1 tab PO Q6H PRN PRN 2 Days #5 tab 08/06/19 The following prescriptions were given: Calcium Citrate/Vitamin D3 [Calcium Citrate-Vit D3 Caplet] 2 ea PO TIDCM 7 Days #42 tab Transmission Status: Pending to [id number] Hydrocodone Bitart/Apap 5-325 [[place] 5MG-325MG] 1 tab PO Q6H PRN PRN 2 Days #5 tab PRN Reason: Pain Transmission Status: Received by [id number] Calcitriol [Rocaltrol] 0.5 mcg PO BID 7 Days #28 cap [facility] Levothyroxine [Synthroid] 75 mcg PO DAILY #90 tab Transmission Status: Received by [facility] Cholecalciferol (VIT D3) [Vitamin D3] 3,000 unit PO DAILYCM 7 Days #21 tab Transmission [facility] Orders to be completed after discharge: Calcium,Total Time Frame: 08/07/19, Facility: [facility], Location: Laboratory Primary Care Physician: Adonis Mays MD [Primary Care Provider] - Test Results: Test results from this visit will be discussed in further detail at your follow- up appointment, if applicable. Please Follow Up With: Jomar Calero MD - [phone] When: Call to make an appointment to be seen in about 10 days. <Krystle Goldman - Last Filed: 08/06/19 13:46> Additional Instructions: You will be sent home on a rigorous calcium supplement regimen to assist with stabilizing your calcium level. You have a prescription for 7 days worth of the medications. Please take as directed by the instruction on the bottle. Dr. Calero would like for you to have a repeat calcium level tomorrow morning at our office building. The lab is available as you walk into the outpatient building (where you saw Dr. Calero). There is an information desk to your left. You may check in with the lady at this desk. Once you have the lab test, you may go back home. Our office will call you with those results once reviewed. Further instructions will be given if you need to be on calcium supplementation longer than 7 days and when your next calcium level will need to be drawn. Please contact our office if you have any questions or concerns throughout your recovery process. Test Results: Test results from this visit will be discussed in further detail at your follow- up appointment, if applicable. Proposed Discharge Date: 08/06/19
[2019-08-05] MEDS: Bupivacaine Mpf 0.5% 30 ML VIAL (09:17)
--- NOTE | 2019-08-05 09:24 | OP.PCM_ITS ---
Problem List (1) Multiple thyroid nodules Status: Acute Report of Operation Date of Procedure: 08/05/19 Pre-Operative Diagnosis: Atypical right lower pole thyroid nodule Post-Operative Diagnosis: Same Surgery/Procedure Performed:: Total thyroidectomy Description of Surgical Findings:: Timeout informed consent was obtained. 34-year-old female taken operating placement table underwent general endotracheal intubation anesthesia. Clean procedure no antibiotics. Neck was gently extended prep. Suprasternal transverse incision was created. Platysmal flaps were raised. Left lobe was ad dressed first. Tediously carefully with blunt dissection and harmonic scalpel dissection the thyroid was dissected free. The superior parathyroid inferior parathyroid and recurrent marginal nerve identified and protected. The gland was rotated anteriorly and the course of the recurrent laryngeal nerve cleanly identified. Ligament of [place] was transected the gland was taken off the anterior surface of the trachea. Similar intention was performed of the right lobe. The nodule is low on the right and more of a firm white appearance. As on the left gland was completely mobilized. The superior parathyroid on the right and the recurrent nerve identified and preserved. The gland was transected at the ligament of [place]field and lifted up off the anterior surface of the trachea. Sutures placed in the anterior superior aspect of the right lobe. The neck was inspected. I did used hemoclips were needed for hemostasis. Neck was dry. I placed fibular on each side of the neck. Strap muscles were approximated midline with 3-[address] was was approximated with the same. Skin edges approximated opted 5-0 Vicryl subdermal stitches. Chyna- incisional area was anesthetized with 10 cc of 0.5% Marcaine. Telfa tape dressing applied. Sponge and instrument and needle counts reported to the surgeon be correct. Specimen total thyroid. Drains none. Blood loss minimal. It is of note that there were no enlarged or palpable lymph nodes identified. Jomar Calero M.D., F.A.C.S. Type of Anesthesia:: General Anesthesiologist: Shruthi Carlos
[2019-08-05] MEDS: DULoxetine Hcl 60 MG Capsule PO (11:33)
[2019-08-05] MEDS: HYDROcodone Bitartrate/Apap 5/325 Tablet PO ×4 (11:33→20:33)
[2019-08-05] MEDS: Calcium Carbonate 500 MG Tablet 1000 MG PO ×2 (11:33→18:48)
[2019-08-05 16:01] LABS: Calcium,Total 8.5 mg/dL (8.5-10.1)
--- NOTE | 2019-08-05 17:16 | PN.SURG_ITS ---
Subjective: Randolph groggy but better now - Physical Exam Vitals/I&O's: Vital Signs Temp Pulse Resp BP Pulse Ox 98.2 F 68 14 97/58 L 97 08/05/19 15:30 08/05/19 15:30 08/05/19 15:30 08/05/19 15:30 08/05/19 15:30 Oxygen Delivery Method Room Air Weight: 123 lb 7.342 oz Body Mass Index (BMI) 19.9 Intake and Output for Last 24 Hours 08/03/19 08/04/19 08/05/19 23:59 23:59 23:59 Intake Total 1316.67 / 1316.67 Balance 1316.67 / 1316.67 Comment: voice clear,neck supple, chvostek positive Laboratory Results 08/05/19 04:54: Urine Test Negative 08/05/19 05:50: WBC 6.0, RBC 4.15 L, Hgb 13.6, Hct 40.5, MCV 97.6, MCH 32.8 H, MCHC 33.6, RDW Std Deviation 42.4, RDW Coeff of Katharine 11.8, Plt Count 381, MPV 9.4 08/05/19 05:50: PT 13.8, INR 1.1, APTT 24.8 08/05/19 05:50: Phosphorus 4.1, Total Bilirubin 0.40, Direct Bilirubin 0.15, AST 7 L, ALT 32, Alkaline Phosphatase 51, Total Protein 7.1, Albumin 4.1, Globulin 3.0 08/05/19 05:50: Phosphorus Cancelled 08/05/19 15:10: Calcium 8.5 Current Medications Acetaminophen (Tylenol) 650 mg PO Q6H PRN PRN PRN Reason: Pain Score 1-10/10 Hydrocodone Bitart/Acetaminophen ([place] 5mg-325mg) 1 - 2 tablet PO Q4H PRN PRN PRN Reason: Pain Score 1-10/10 Last Admin: 08/05/19 16:29 Dose: 2 tablet Documented by: Calcitriol (Rocaltrol) 0.5 mcg PO DAILY JOHNY Calcium Carbonate (Tums) 1,000 mg PO TIDCM JOHNY Last Admin: 08/05/19 11:33 Dose: 1,000 mg Documented by: Calcium Carbonate () 1,250 mg PO X1 JOHNY Cholecalciferol (Vitamin D) 2,000 unit PO DAILYCM [facility] Duloxetine HCl (Cymbalta) 60 mg PO DAILY [facility] Last Admin: 08/05/19 11:33 Dose: 60 mg Documented by: Lactated Ringer's () 1,000 mls @ 100 mls/hr IV .Q10H JOHNY Last Infusion: 08/05/19 11:20 Dose: 30 mls/hr Documented by: Lactated Ringer's () 1,000 mls @ 30 mls/hr IV .[id number] [facility] Levothyroxine Sodium (Synthroid) 75 mcg PO DAILY@0600 [facility] Morphine Sulfate () 2 - 4 mg IV Q1H PRN PRN PRN Reason: Pain Score 1-10/10 Multivitamins (Multivitamin) 1 tablet PO DAILY@0800 [facility] Non-Formulary Medication (Armodafinil [Nuvigil]) 250 mg PO DAILY [facility] Non-Formulary Medication (Ocrelizumab) 300 mg IV .Q6M [facility] Ondansetron HCl (Zofran) 4 mg IV Q8H PRN PRN PRN Reason: NAUSEA Sodium Chloride () 10 - 40 ml IV UD PRN PRN Reason: SALINE FLUSH Medical Necessity - Tobacco Use Smoking Status: Never smoker Tobacco Use: Non-smoker Assessment/Plan All Active Problems (Last Reviewed 08/03/19 @ 08:23 by Nia Herrera) Multiple sclerosis (Acute) Multiple thyroid nodules (Acute) Hx of wisdom tooth extraction (Acute) History of loop electrical excision procedure (LEEP) (Acute) Anxiety (Acute) Depression (Acute) Numbness and tingling (Acute) Fatigue (Acute) Parathyroids were identified but required manipulation Chvostek positive, pt not symptomatic. Calcium 8.5 Will give rocaltrol and observe overnight On 06/11/19 Chvostek was negative
[2019-08-05] MEDS: Calcitriol 0.25 MCG Capsule 0.5 MCG PO (19:04)
[2019-08-05] MEDS: Calcium Carbonate 1250 MG/5 ML PO (19:04)
[2019-08-05] MEDS: 0.9% Saline Lock 10 ML Syringe IV (20:34)
[2019-08-05] MEDS: Lactated Ringers 1,000 ML 30 ML IV (20:37)
[2019-08-06 02:20] VITALS: BP 99/59; PULSE 69; RESP 18; TEMP 36.8; O2SAT 99
[2019-08-06] MEDS: HYDROcodone Bitartrate/Apap 5/325 Tablet PO ×4 (02:22→13:55)
[2019-08-06 05:44] LABS: Calcium,Total 7.8 mg/dL (8.5-10.1)
[2019-08-06] MEDS: Levothyroxine 75 MCG Tablet PO (05:56)
--- NOTE | 2019-08-06 06:07 | PN.SURG_ITS ---
Subjective: Patient is comfortable and alert. No particular complaints. She slept well last night. Mild neck discomfort. - Physical Exam Vitals/I&O's: Vital Signs Temp Pulse Resp BP Pulse Ox 98.3 F 69 18 99/59 L 99 08/06/19 02:20 08/06/19 02:20 08/06/19 02:20 08/06/19 02:20 08/06/19 02:20 Oxygen Delivery Method Room Air Weight: 123 lb 7.342 oz Body Mass Index (BMI) 19.9 Intake and Output for Last 24 Hours 08/04/19 08/05/19 08/06/19 23:59 23:59 23:59 Intake Total Balance General: Alert, Oriented x3, Cooperative, No apparent distress HEENT: - - Incision is clean dry and supple, Chvostek is negative Laboratory Results 08/05/19 05:50: PT 13.8, INR 1.1, APTT 24.8 08/05/19 05:50: Phosphorus 4.1, Total Bilirubin 0.40, Direct Bilirubin 0.15, AST 7 L, ALT 32, Alkaline Phosphatase 51, Total Protein 7.1, Albumin 4.1, Globulin 3.0 08/05/19 15:10: Calcium 8.5 08/06/19 05:10: Calcium 7.8 L Current Medications Acetaminophen (Tylenol) 650 mg PO Q6H PRN PRN PRN Reason: Pain Score 1-10/10 Hydrocodone Bitart/Acetaminophen ([place] 5mg-325mg) 1 - 2 tablet PO Q4H PRN PRN PRN Reason: Pain Score 1-10/10 Last Admin: 08/06/19 02:22 Dose: 2 tablet Documented by: Calcitriol (Rocaltrol) 0.5 mcg PO DAILY [facility] Last Admin: 08/05/19 19:04 Dose: 0.5 mcg Documented by: Calcium Carbonate (Tums) 1,000 mg PO TIDCM [facility] Last Admin: 08/05/19 18:48 Dose: 1,000 mg Documented by: [facility]ifer[facility] ([facility]it[facility]) [facility] Duloxetine [facility] (Cymbalta) 60 mg PO DAILY [facility] Last Admin: 08/05/19 11:33 Dose: 60 mg Documented by: Lactated Ringer's () 1,000 mls @ 100 mls/hr IV .Q10H [facility] Last Infusion: 08/05/19 20:37 Dose: Infused Documented by: Lactated Ringer's () 1,000 mls @ 30 mls/hr IV .[id number] [facility] Last Admin: 08/05/19 20:37 Dose: 30 mls/hr Documented by: Levothyroxine Sodium (Synthroid) 75 mcg PO DAILY@0600 [facility] Last Admin: 08/06/19 05:56 Dose: 75 mcg Documented by: Morphine Sulfate () 2 - 4 mg IV Q1H PRN PRN PRN Reason: Pain Score 1-10/10 Multivitamins (Multivitamin) 1 tablet PO DAILY@0800 [facility] Non-Formulary Medication (Armodafinil [Nuvigil]) 250 mg PO DAILY [facility] Non-Formulary Medication (Ocrelizumab) 300 mg IV .Q6M [facility] Ondansetron HCl (Zofran) 4 mg IV Q8H PRN PRN PRN Reason: NAUSEA Sodium Chloride () 10 - 40 ml IV UD PRN PRN Reason: SALINE FLUSH Last Admin: 08/05/19 20:34 Dose: 10 ml Documented by: Medical Necessity - Tobacco Use Smoking Status: Never smoker Tobacco Use: Non-smoker Assessment/Plan All Active Problems (Last Reviewed 08/03/19 @ 08:23 by Nia Herrera) Multiple sclerosis (Acute) Multiple thyroid nodules (Acute) Hx of wisdom tooth extraction (Acute) History of loop electrical excision procedure (LEEP) (Acute) Anxiety (Acute) Depression (Acute) Numbness and tingling (Acute) Fatigue (Acute) Laboratory suggest calcium is 7.8 We will continue with supplementation and anticipate hopeful discharge later today.
[2019-08-06] MEDS: Calcitriol 0.25 MCG Capsule 0.5 MCG PO (06:56)
[2019-08-06 08:05] VITALS: BP 121/68; PULSE 97; RESP 18; TEMP 36.6; O2SAT 95
[2019-08-06] MEDS: Calcium Carbonate 1250 MG/5 ML PO (08:06)
[2019-08-06 12:31] LABS: Calcium,Total 9.5 mg/dL (8.5-10.1)
[2019-08-06 14:25] VITALS: BP 123/74; PULSE 83; RESP 16; TEMP 36.7; O2SAT 98
== END 2019-08-06 14:39 | disposition home or self-care (01) ==
LOC: SDC 08-06 10:13 → MS3 08-06 10:13
PROVIDERS: Anesthesiology; Admitting Provider Surgery; Family Provider Family Medicine; PCP Family Medicine; Referring Provider Surgery; Visit Provider Surgery
PROC: (CPT 60240; principal; 2019-08-05 07:15)
DX: E04.2 Nontoxic multinodular goiter (principal); G35 Multiple sclerosis; F41.9 Anxiety disorder, unspecified; F32.9 Major depressive disorder, single episode, unspecified; Z79.899 Other long term (current) drug therapy
CPT/HCPCS: 00320; 60240; 36415; 80076; 81025; 82310; 84100; 85027; 85610; 85730; 88305; 88307; 88331; 88341; 88342; 99218; J7120; A4216; G0378; G0379; J0610; J2405

== ENCOUNTER → 2019-08-07 10:34 | Outpatient (CLI) | payer OTHER, SELFPAY ==
[2019-08-05 11:19] VITALS: BMI 19.9
[2019-08-07 10:56] LABS: Calcium,Total 8.8 mg/dL (8.5-10.1)
== END ==
PROVIDERS: PCP Family Medicine; Referring Provider Physician Assistant; Visit Provider Physician Assistant
DX: E83.51 Hypocalcemia (principal)
CPT/HCPCS: 36415; 82310

== ENCOUNTER → 2019-08-10 14:25 | Outpatient (CLI) | payer OTHER, SELFPAY ==
[2019-08-05 11:19] VITALS: BMI 19.9
[2019-08-10 15:07] LABS: Calcium,Total 9.4 mg/dL (8.5-10.1)
== END ==
PROVIDERS: PCP Family Medicine; Referring Provider Surgery; Visit Provider Surgery
DX: E83.51 Hypocalcemia (principal)
CPT/HCPCS: 36415; 82310

== ENCOUNTER → 2019-10-01 09:36 | Outpatient (CLI) | payer OTHER, SELFPAY ==
[2019-08-05 11:19] VITALS: BMI 19.9
[2019-10-01 10:13] LABS: Absolute Lymphocyte Count 1.61 X10^3/uL (0.83-4.51); Absolute Neutrophil Count 2.9 X10^3/uL (2.0-7.7); Basophil# 0.03 X10^3/uL; Basophil% 0.6 % (0-1); Eosinophil# 0.17 X10^3/uL; Eosinophils% 3.4 % (0-5); Hematocrit 41.3 % (37-47); Hemoglobin 13.2 g/dL (12.0-15.0); Lymphocyte # 1.61 X10^3/ul (4.0); Mean Corpuscular Hgb 32.8 pg (27.0-32.0); Mean Corpuscular Volume 102.7 fL (81-99); Mean Platelet Vol. 9.6 fl (6.2-12.0); Monocyte# 0.33 X10^3/uL; Monocyte% 6.6 % (0-10); NRBC Flagged by Analyzer 0 % (0-5); Neutrophil # 2.88 X10^3/uL (2.7-7.7); Neutrophil % 57.2 % (47-70); Platelet Count 356 K/mm3 (150-450); RBC Distribution Width CV 12.9 % (11.6-14.6); RBC Distribution Width SD 49.1 fl (35.1-43.9); Red Blood Count 4.02 M/mm3 (4.2-5.4)
[2019-10-01 10:23] LABS: ALB/GLOB Ratio 1.5 RATIO (0.9-2.4); AST(SGOT) 12 U/L (15-37); Alanine Aminotransfer ALT/SGPT 21 U/L (13-56); Albumin, Serum 4.3 g/dL (3.2-5.0); Alkaline Phosphatase 36 U/L (45-117); Anion Gap 5 (5-15); BUN 16 mg/dL (7-18); BUN/Creat Ratio 19.7 RATIO (10-20); Calcium,Total 8.4 mg/dL (8.5-10.1); Chloride 106 mmol/L (98-107); Creatinine, Serum 0.81 mg/dL (0.55-1.02); EST Glomerular Filtration Rate 86 mL/min (>60); Est Glom Filt Rate - Afr Amer 104 mL/min (>60); Globulin 2.9 g/dL (2.2-4.2); Glucose 86 mg/dL (74-106); Potassium 4.2 mmol/L (3.5-5.1); Protein, Total 7.2 g/dL (6.4-8.2); Sodium Level 140 mmol/L (136-145)
== END ==
PROVIDERS: Surgery; PCP Family Medicine
DX: E04.2 Nontoxic multinodular goiter (principal); Z79.899 Other long term (current) drug therapy; Z98.890 Other specified postprocedural states
CPT/HCPCS: 36415; 80053; 84443; 85025

== ENCOUNTER → 2019-10-03 10:08 | Outpatient (CLI) | payer OTHER, SELFPAY ==
[2019-08-05 11:19] VITALS: BMI 19.9
== END ==
PROVIDERS: PCP Family Medicine; Referring Provider Surgery; Visit Provider Surgery
DX: E03.9 Hypothyroidism, unspecified (principal)
CPT/HCPCS: 36415; 84443

== ENCOUNTER → 2019-10-17 10:59 | Outpatient (CLI) | payer OTHER, SELFPAY ==
[2019-08-05 11:19] VITALS: BMI 19.9
== END ==
PROVIDERS: PCP Family Medicine; Referring Provider Surgery; Visit Provider Surgery
DX: E03.9 Hypothyroidism, unspecified (principal)
CPT/HCPCS: 36415; 84443

== ENCOUNTER → 2020-05-21 08:12 | Outpatient (CLI) | payer OTHER, SELFPAY ==
[2019-10-29 09:21] VITALS: BMI 19.9
--- NOTE | 2020-05-21 08:15 | MRI_ITS ---
STUDY: MRI BRAIN WITH AND WITHOUT CONTRAST REASON FOR EXAM: Female, 34 years old. ms, NEW MEDICATION SINCE PREV MRI TECHNIQUE: Standardized multiplanar fat and water weighted pulse sequences were obtained. IV Dotarem 10ml was administered for the contrast portion of the examination. COMPARISON: 05/02/2019 FINDINGS: Normal size of the ventricles and extra-axial spaces for the patient''s age. There is no change in the hyperintensities of the periventricular and pericallosal white matter consistent with known demyelinating disease (multiple sclerosis). No contrast-enhancing plaque. There is no evidence for recent intracranial ischemia or other cause of cytotoxic edema on diffusion weighted imaging (DWI). Normal T2* images of the brain without demonstrated susceptibility artifact. There is no demonstrated hemosiderin stain. Normal bilateral basal ganglia. Normal thalami. There is no extra-axial fluid accumulation. Normal flow voids within the major intracranial circulation suggesting patency by spin echo criteria. Normal venous enhancement. There is no enhancing intra-axial or extra-axial abnormality. Normal sella turcica, pituitary gland, infundibular stalk, optic chiasm and hypothalamus. Normal tectal plate and pineal gland. Normal midbrain, aaliyah and medulla. Normal cerebellum. Normal basal cisterns. Normal bilateral temporal bones. Normal bilateral internal auditory canals. No demonstrated orbital abnormality, within the constraints of a routine brain study. Normal visualized paranasal sinuses. Normal calvarium and skull base. Normal visualized soft tissue structures. Normal visualized upper cervical spine. MRI/Brain W/WO Contrast IMPRESSION: Improved in known demyelinating disease (multiple sclerosis) with loss of enhancement of the previously described plaques suggestive of inactivity. Electronically Signed: Nabil Will MD at 12:35 EDT Tel , Service support ,
--- NOTE | 2020-05-21 08:15 | MRI_ITS ---
STUDY: MRI CERVICAL SPINE WITH AND WITHOUT CONTRAST REASON FOR EXAM: Female, 34 years old. ms, NEW MEDICATION SINCE PREV MRI TECHNIQUE: Standardized fat and water weighted pulse sequences were obtained in the sagittal and axial following administration of IV 10ml Dotarem. COMPARISON: 05/02/2019 FINDINGS: Normal foramen magnum and brainstem-cervical cord junction. Normal craniovertebral junction. Normal anterior atlantoaxial articulation. Normal odontoid process. Normal cervical lordosis. Normal vertebral bodies and posterior osseous elements. C2-3: Normal endplates. Normal disc height, signal and morphology. Normal central canal and intervertebral neural foramina. C3-4: Normal endplates. Normal disc height, signal and morphology. Normal central canal and intervertebral neural foramina. C4-5: Normal endplates. Normal disc height, signal and morphology. Normal central canal and intervertebral neural foramina. C5-6: Normal endplates. Normal disc height, signal and morphology. Normal central canal and intervertebral neural foramina. C6-7: Normal endplates. Normal disc height, signal and morphology. Normal central canal and intervertebral neural foramina. C7-T1: Normal endplates. Normal disc height, signal and morphology. Normal central canal and intervertebral neural foramina. There is no change in the subtle hyperintensities of the spinal cord at the level of C2, C5 and C6 consistent with known demyelinating disease (multiple sclerosis). No contrast enhancement of these plaques. Normal visualized soft tissue structures. MRI/Spine Cervical W/WO Contrast IMPRESSION: No change in 05/02/2019 Electronically Signed: Nabil Will MD at 12:13 EDT Tel , Service support ,
== END ==
PROVIDERS: PCP Family Medicine; Referring Provider Internal Medicine; Visit Provider Internal Medicine
DX: G35 Multiple sclerosis (principal)
CPT/HCPCS: 70553; 72156; A9575

== ENCOUNTER → 2020-09-12 15:15 | Outpatient (CLI) | payer OTHER, SELFPAY ==
[2019-10-29 09:21] VITALS: BMI 19.9
== END ==
PROVIDERS: PCP Family Medicine; Referring Provider Family Medicine; Visit Provider Family Medicine
DX: Z20.822 Contact with and (suspected) exposure to COVID-19 (principal)
CPT/HCPCS: 87635; U0005; U0003

== ENCOUNTER → 2021-06-09 07:29 | Outpatient (CLI) | payer OTHER, SELFPAY ==
--- NOTE | 2021-06-09 07:34 | MRI_ITS ---
EXAM: MR HEAD WITHOUT AND WITH INTRAVENOUS CONTRAST : 1985 CLINICAL INDICATION: MS F/U ,NEW MEDICATION STARTED TECHNIQUE: Multiplanar and multisequence MR images of the brain were obtained without and with intravenous contrast. This report was created using [employer] report generation technology. CONTRAST: IV DOTAREM 10CC COMPARISON: May 21, 2020 FINDINGS: BRAIN AND EXTRA-AXIAL SPACES: Extensive predominantly periventricular abnormal T2 signal intensity within the cerebral white matter again noted. There appears to be some interval improvement in the involvement of the left frontal lobe white matter. No abnormal contrast enhancement to suggest active lesion. No intra- or extra-axial hemorrhage. No evidence of acute infarct. No intracranial mass or mass effect. There is preservation of the ryder/white matter interface. Posterior fossa structures are unremarkable. No hydrocephalus. Basal cisterns are patent. SELLA: Unremarkable. Normal sella turcica, pituitary gland, infundibular stalk, optic chiasm and hypothalamus. AUDITORY SYSTEM: Unremarkable. The internal auditory canals are patent. BONES/JOINTS: Unremarkable. No discrete lytic or blastic abnormalities. SINUSES: Increasing mucosal thickening within the left maxillary sinus. MASTOID AIR CELLS: Unremarkable as visualized. Clear. ORBITS: Unremarkable as visualized. Both globes, extraocular muscles, optic nerves and retrobulbar fat appear unremarkable. VASCULATURE: Unremarkable as visualized. Normal flow voids in the major intracranial circulation. MRI/Brain W/WO Contrast IMPRESSION: Extensive white matter changes consistent with the patient's history of an mass. Interval improvement in the left frontal lobe white matter lesions. No abnormal contrast enhancement. Left maxillary sinusitis. at [id number] Reported and signed by: Hong Alegria MD Electronically Signed: Hong Alegria MD at 9:56 EST Tel , Service support ,
[2021-06-09 09:28] LABS: Erythrocyte Sedimentation Rate 3 mm/hr (0-30)
[2021-06-09 10:08] LABS: Syphilis Antibodies Non-reactive; Vitamin B12 452 pg/mL (211-911); Vitamin D,25 Hydroxy 30.4 ng/mL
== END ==
PROVIDERS: PCP Family Medicine
DX: G35 Multiple sclerosis (principal)
CPT/HCPCS: 36415; 70553; 82306; 82607; 85652; 86780; A9575

== ENCOUNTER → 2022-05-07 | Outpatient (CLI) | payer OTHER, SELFPAY ==
--- NOTE | 2022-05-07 10:29 | MRI_ITS ---
STUDY: MRI CERVICAL SPINE WITH AND WITHOUT CONTRAST REASON FOR EXAM: Female, 36 years old. MS TECHNIQUE: Standardized fat and water weighted pulse sequences were obtained in the sagittal and axial following administration of 13 ml IV Clariscan. COMPARISON: MRI cervical spine with and without contrast 05/21/2020. FINDINGS: Normal foramen magnum and brainstem-cervical cord junction. Normal craniovertebral junction. Normal anterior atlantoaxial articulation. Normal odontoid process. Straightening of C-spine curvature is unchanged. Normal vertebral bodies and posterior osseous elements. C2-3: Normal endplates. Normal disc height, signal and morphology. Normal central canal and intervertebral neural foramina. C3-4: Normal endplates. Normal disc height, signal and morphology. Normal central canal and intervertebral neural foramina. C4-5: Normal endplates. Normal disc height, signal and morphology. Normal central canal and intervertebral neural foramina. C5-6: Normal endplates. Normal disc height, signal and morphology. Normal central canal and intervertebral neural foramina. C6-7: Normal endplates. Normal disc height, signal and morphology. Normal central canal and intervertebral neural foramina. C7-T1: Normal endplates. Normal disc height, signal and morphology. Normal central canal and intervertebral neural foramina. T1-T2, T2-T3 and T3-T4: (Sagittal only). Normal endplates. Normal disc height, signal and morphology. Normal central canal and intervertebral neural foramina. Abnormal ill-defined T2 hyperintensity of the cervical spinal cord at C2-C3 disc level and smaller T2 FLAIR hyperintensity of this midline cervical spinal cord at C3, C4 and C6-C7 disc space level. Normal included portions of the upper thoracic spinal cord. Normal included brainstem and cerebellum. Following IV contrast administration, there are no suspicious enhancing lesions intradurally and extradurally. Normal visualized soft tissue structures. MRI/Spine Cervical W/WO Contrast IMPRESSION: 1. Nonenhancing MS plaque in the dorsal aspect of the C2-C3 disc space level is unchanged. 2. Small nonenhancing MS plaques at the lower C3, lower C4 vertebral body and the C6-C7 disc space levels. In my opinion, these are new findings. They are more obvious on the sagittal STIR sequence. 3. No MRI evidence of cervical extruded disc fragment or spinal stenosis. Electronically Signed: Lawson Wilkinson MD at 14:20 EDT ,
--- NOTE | 2022-05-07 10:29 | MRI_ITS ---
EXAM: MR HEAD WITHOUT AND WITH INTRAVENOUS CONTRAST CLINICAL INDICATION: MS TECHNIQUE: Multiplanar and multisequence MR images of the brain were obtained without and with intravenous contrast. This report was created using [employer] report generation technology. CONTRAST: 13 ml IV Clariscan COMPARISON: MRI brain with and without contrast 06/09/2021. FINDINGS: BRAIN AND EXTRA-AXIAL SPACES: Multiple T2 FLAIR hyperintensity foci in the white matter of both cerebral hemispheres are nonenhancing MS plaques. They are unchanged in size and number. No intra- or extra-axial hemorrhage. No evidence of acute infarct. No intracranial mass or mass effect. There is preservation of the ryder/white matter interface. Posterior fossa structures are unremarkable. Basal cisterns are patent. SELLA: Unremarkable. Normal sella turcica, pituitary gland, infundibular stalk, optic chiasm and hypothalamus. AUDITORY SYSTEM: Unremarkable. The internal auditory canals are patent. BONES/JOINTS: Unremarkable. No discrete lytic or blastic abnormalities. SINUSES: Unremarkable as visualized. Clear. MASTOID AIR CELLS: Unremarkable as visualized. Clear. ORBITS: Unremarkable as visualized. Both globes, extraocular muscles, optic nerves and retrobulbar fat appear unremarkable. VASCULATURE: Unremarkable as visualized. Normal flow voids in the major intracranial circulation. MRI/Brain W/WO Contrast IMPRESSION: 1. No MRI evidence of active enhancing MS plaques or acute intracranial abnormality. 2. Multiple nonenhancing MS plaques in the white matter of both cerebral hemispheres are unchanged in size and number. 3. No significant interval changes or new findings when compared to 06/09/2021. Electronically Signed: Lawson Wilkinson MD at 14:11 EDT ,
== END | disposition home or self-care (01) ==
PROVIDERS: PCP Family Medicine; Referring Provider Internal Medicine; Visit Provider Internal Medicine
DX: G35 Multiple sclerosis (principal)
CPT/HCPCS: 70553; 72156; A9575

== ENCOUNTER → 2022-10-20 | Outpatient (CLI) | payer OTHER, SELFPAY ==
[2022-10-20 10:57] LABS: Absolute Lymphocyte Count 1.56 X10^3/uL (0.83-4.51); Absolute Neutrophil Count 1.7 X10^3/uL (2.0-7.7); Basophil# 0.03 X10^3/uL; Basophil% 0.8 % (0-1); Eosinophil# 0.13 X10^3/uL; Eosinophils% 3.4 % (0-5); Hematocrit 39.7 % (37-47); Hemoglobin 13.2 g/dL (12.0-15.0); Lymphocyte # 1.56 X10^3/ul (0.83-4.51); Lymphocyte % 40.5 % (19-41); Mean Corp Hgb Conc 33.2 g/dL (32-36); Mean Corpuscular Hgb 32.8 pg (27.0-32.0); Mean Corpuscular Volume 98.8 fL (81-99); Mean Platelet Vol. 9.8 fl (6.2-12.0); Monocyte# 0.39 X10^3/uL; Monocyte% 10.1 % (0-10); NRBC Flagged by Analyzer 0 % (0-5); Neutrophil # 1.73 X10^3/uL (2.7-7.7); Neutrophil % 44.9 % (47-70); Platelet Count 272 K/mm3 (150-450); RBC Distribution Width CV 12.2 % (11.6-14.6); RBC Distribution Width SD 44.6 fl (35.1-43.9); Red Blood Count 4.02 M/mm3 (4.2-5.4); White Blood Count 3.9 K/mm3 (4.4-11.0)
[2022-10-20 11:33] LABS: ALB/GLOB Ratio 1.3 RATIO (0.9-2.4); AST(SGOT) 21 U/L (15-37); Alanine Aminotransfer ALT/SGPT 45 U/L (13-56); Albumin, Serum 3.9 g/dL (3.2-5.0); Alkaline Phosphatase 41 U/L (45-117); Anion Gap 5 (5-15); BUN 15 mg/dL (7-18); BUN/Creat Ratio 22.6 RATIO (10-20); Calcium,Total 8.2 mg/dL (8.5-10.1); Chloride 105 mmol/L (98-107); Cholesterol 175 mg/dL (200); Creatinine, Serum 0.66 mg/dL (0.55-1.02); EST Glomerular Filtration Rate 107 mL/min (>60); Est Glom Filt Rate - Afr Amer 130 mL/min (>60); Free T3 2.4 pg/mL (2.18-3.98); Globulin 2.9 g/dL (2.2-4.2); Glucose 88 mg/dL (74-106); High Density Lipoprotein 82 mg/dL; Potassium 3.8 mmol/L (3.5-5.1); Protein, Total 6.8 g/dL (6.4-8.2); Sodium Level 137 mmol/L (136-145); T4 Free Direct 1.07 ng/dL (0.76-1.46); Triglycerides 40 mg/dL; Very Low Density Lipoprotein 8 mg/dL (5-40)
[2022-10-22 08:31] LABS: Vitamin D,25 Hydroxy 41.7 ng/mL
[2022-10-22 15:08] LABS: Immunoglobulin A 129 mg/dL (87-352); Immunoglobulin G 685 mg/dL (586-1602)
[2022-10-23 11:14] LABS: Immunoglobulin M 25 mg/dL (26-217)
== END | disposition home or self-care (01) ==
PROVIDERS: PCP Family Medicine
DX: Z00.00 Encounter for general adult medical examination without abnormal findings (principal); G35 Multiple sclerosis; E03.9 Hypothyroidism, unspecified
CPT/HCPCS: 36415; 80053; 80061; 82306; 82784; 84439; 84443; 84481; 85025

== ENCOUNTER → 2023-05-17 | Outpatient (CLI) | payer OTHER, SELFPAY ==
[2023-05-17 14:41] LABS: Absolute Lymphocyte Count 1.51 X10^3/uL (0.83-4.51); Absolute Neutrophil Count 3.8 X10^3/uL (2.0-7.7); Basophil# 0.03 X10^3/uL; Basophil% 0.5 % (0-1); Eosinophil# 0.18 X10^3/uL; Hemoglobin 13.2 g/dL (12.0-15.0); Lymphocyte # 1.51 X10^3/ul (0.83-4.51); Lymphocyte % 24.8 % (19-41); Mean Corpuscular Volume 96.9 fL (81-99); Mean Platelet Vol. 9.9 fl (6.2-12.0); Monocyte# 0.59 X10^3/uL; Monocyte% 9.7 % (0-10); NRBC Flagged by Analyzer 0 % (0-5); Neutrophil # 3.77 X10^3/uL (2.7-7.7); Neutrophil % 61.8 % (47-70); Platelet Count 266 K/mm3 (150-450); RBC Distribution Width CV 12.3 % (11.6-14.6); Red Blood Count 4.13 M/mm3 (4.2-5.4); White Blood Count 6.1 K/mm3 (4.4-11.0)
[2023-05-17 15:17] LABS: Vitamin B12 423 pg/mL (211-911)
[2023-05-17 15:22] LABS: ALB/GLOB Ratio 1.3 RATIO (0.9-2.4); AST(SGOT) 14 U/L (15-37); Alanine Aminotransfer ALT/SGPT 36 U/L (13-56); Albumin, Serum 3.9 g/dL (3.2-5.0); Alkaline Phosphatase 35 U/L (45-117); Anion Gap 5 (5-15); BUN 13 mg/dL (7-18); BUN/Creat Ratio 18.5 RATIO (10-20); Calcium,Total 8.7 mg/dL (8.5-10.1); Chloride 105 mmol/L (98-107); EST Glomerular Filtration Rate 100 mL/min (>60); Est Glom Filt Rate - Afr Amer 120 mL/min (>60); Globulin 2.9 g/dL (2.2-4.2); Glucose 95 mg/dL (74-106); Potassium 3.7 mmol/L (3.5-5.1); Protein, Total 6.8 g/dL (6.4-8.2); Sodium Level 139 mmol/L (136-145); T4 Free Direct 1.14 ng/dL (0.76-1.46); Thyroid Stim Hormone (TSH) 0.16 uIU/mL (0.358-3.74)
[2023-05-22 19:07] LABS: Immunoglobulin A 133 mg/dL (87-352); Immunoglobulin E 18 IU/mL (6-495); Immunoglobulin G 640 mg/dL (586-1602); Immunoglobulin M 26 mg/dL (26-217)
== END | disposition home or self-care (01) ==
LOC: LAB 14:05
PROVIDERS: Internal Medicine Endocrinology, Diabetes & Metabolism; PCP Family Medicine; Referring Provider Internal Medicine; Visit Provider Internal Medicine
DX: Z79.899 Other long term (current) drug therapy (principal); R20.2 Paresthesia of skin; R20.0 Anesthesia of skin; E55.9 Vitamin D deficiency, unspecified; E89.0 Postprocedural hypothyroidism
CPT/HCPCS: 36415; 80053; 82306; 82607; 82784; 82785; 84439; 84443; 85025

== ENCOUNTER → 2024-05-23 | Outpatient (CLI) | payer OTHER, SELFPAY ==
[2024-05-23 11:17] LABS: Absolute Lymphocyte Count 1.54 X10^3/uL (0.83-4.51); Absolute Neutrophil Count 2.2 X10^3/uL (2.0-7.7); Basophil# 0.02 X10^3/uL; Basophil% 0.5 % (0-1); Eosinophil# 0.06 X10^3/uL; Eosinophils% 1.4 % (0-5); Hematocrit 40.8 % (37-47); Hemoglobin 13.9 g/dL (12.0-15.0); Lymphocyte # 1.54 X10^3/ul (0.83-4.51); Lymphocyte % 36.4 % (19-41); Mean Corp Hgb Conc 34.1 g/dL (32-36); Mean Corpuscular Hgb 32.1 pg (27.0-32.0); Mean Corpuscular Volume 94.2 fL (81-99); Mean Platelet Vol. 9.9 fl (6.2-12.0); Monocyte# 0.45 X10^3/uL; Monocyte% 10.6 % (0-10); NRBC Flagged by Analyzer 0 % (0-5); Neutrophil # 2.16 X10^3/uL (2.7-7.7); Neutrophil % 51.1 % (47-70); Platelet Count 277 K/mm3 (150-450); RBC Distribution Width CV 11.9 % (11.6-14.6); RBC Distribution Width SD 41.8 fl (35.1-43.9); Red Blood Count 4.33 M/mm3 (4.2-5.4); White Blood Count 4.2 K/mm3 (4.4-11.0)
[2024-05-23 11:46] LABS: ALB/GLOB Ratio 1.4 RATIO (0.9-2.4); AST(SGOT) 15 U/L (15-37); Alanine Aminotransfer ALT/SGPT 43 U/L (13-56); Albumin, Serum 4.1 g/dL (3.2-5.0); Alkaline Phosphatase 40 U/L (45-117); Anion Gap 4 (5-15); BUN 12 mg/dL (7-18); BUN/Creat Ratio 13.6 RATIO (10-20); Calcium,Total 8.4 mg/dL (8.5-10.1); Chloride 108 mmol/L (98-107); Creatinine, Serum 0.88 mg/dL (0.55-1.02); EST Glomerular Filtration Rate 77 mL/min (>60); Est Glom Filt Rate - Afr Amer 93 mL/min (>60); Globulin 2.9 g/dL (2.2-4.2); Glucose 84 mg/dL (74-106); Potassium 4.1 mmol/L (3.5-5.1); Sodium Level 140 mmol/L (136-145); T4 Free Direct 0.94 ng/dL (0.76-1.46); Thyroid Stim Hormone (TSH) 0.737 uIU/mL (0.358-3.740)
[2024-05-24 09:07] LABS: Immunoglobulin G 713 mg/dL (586-1602)
== END | disposition home or self-care (01) ==
PROVIDERS: PCP Family Medicine; Referring Provider Internal Medicine Endocrinology, Diabetes & Metabolism; Visit Provider Internal Medicine Endocrinology, Diabetes & Metabolism
DX: Z79.899 Other long term (current) drug therapy (principal)
CPT/HCPCS: 36415; 80053; 82784; 84439; 84443; 85025

== ENCOUNTER → 2024-07-30 | Outpatient (CLI) | payer OTHER, SELFPAY ==
--- NOTE | 2024-07-30 16:00 | MRI_ITS ---
EXAM: MR HEAD WITHOUT AND WITH INTRAVENOUS CONTRAST CLINICAL INDICATION: MS TECHNIQUE: Multiplanar and multisequence MR images of the brain were obtained without and with intravenous contrast. CONTRAST: IV 12ml clariscan COMPARISON: MRI brain, 05/07/2022 FINDINGS: BRAIN AND EXTRA-AXIAL SPACES: There is no pathologic parenchymal enhancement to indicate active demyelination or other pathology. No pathologic meningeal enhancement. There are multiple foci of cortical/juxtacortical, subcortical, periventricular T2 and T2 FLAIR hyperintensity throughout the bilateral cerebral hemispheres which given slight variation in technique are unchanged compared to the prior examination. Periventricular lesions are elongated in oriented perpendicular to the longitudinal axis of the lateral ventricles. No new foci of signal abnormality are identified to indicate interval demyelination. Posterior fossa structures are unremarkable. Basal cisterns are patent. No evidence of restricted diffusion to indicate a recent infarct or other pathology. No intracranial mass or mass effect. No shift of midline structures. No intracranial hemorrhage or pathologic extra-axial fluid. No hydrocephalus. SELLA: No significant abnormality. Normal sella turcica, pituitary gland, infundibular stalk, optic chiasm and hypothalamus. AUDITORY SYSTEM: No significant abnormality. The internal auditory canals are patent. BONES/JOINTS: No significant abnormality. No discrete lytic or blastic abnormalities. SINUSES: Normal as visualized. Clear. MASTOID AIR CELLS: Normal as visualized. Clear. ORBITS: Normal as visualized. Both globes, extraocular muscles, optic nerves and retrobulbar fat appear unremarkable. VASCULATURE: Normal as visualized. Normal flow voids in the major intracranial circulation. MRI/Brain W/WO Contrast IMPRESSION: Areas of chronic demyelination essentially unchanged compared to the prior examination. No evidence of interval or active demyelination. Electronically Signed: Emiliano Daley DO at 0:04 EST ,
--- NOTE | 2024-07-30 16:45 | MRI_ITS ---
EXAM: MR CERVICAL SPINE WITHOUT AND WITH INTRAVENOUS CONTRAST CLINICAL INDICATION: MS TECHNIQUE: Multiplanar and multisequence MR images of the cervical spine without and with intravenous contrast were performed. CONTRAST: IV 12ml clariscan COMPARISON: MRI cervical spine, 05/07/2022 FINDINGS: VERTEBRAE: No significant abnormality. Normal vertebral bodies and posterior elements. Normal alignment. Normal craniocervical junction and cervicothoracic junction. No spondylolisthesis. There is preservation of the normal cervical lordosis. SPINAL CORD: Short segment peripheral foci of T2 and STIR hyperintensity are present within the cervical spinal cord with a similar appearance to the prior MRI examination. Most conspicuous foci are at the level of C2 and at the level of C5-C6. No new signal abnormalities within the spinal cord or pathologic enhancement to indicate interval or active demyelination. SOFT TISSUES: No significant abnormality. No prevertebral soft tissue swelling. LYMPH NODES: No significant abnormality. There is no cervical adenopathy. DISCS/SPINAL CANAL/NEURAL FORAMINA: C2-C3: No significant abnormality. Normal disc height and morphology. Normal spinal canal. Normal neuroforamina. C3-C4: No significant abnormality. Normal disc height and morphology. Normal spinal canal. Normal neuroforamina. C4-C5: No significant abnormality. Normal disc height and morphology. Normal spinal canal. Normal neuroforamina. C5-C6: No disc herniation, spinal canal stenosis, or neural foraminal narrowing. C6-C7: No significant abnormality. Normal disc height and morphology. Normal spinal canal. Normal neuroforamina. C7-T1: No significant abnormality. Normal disc height and morphology. Normal spinal canal. Normal neuroforamina. MRI/Spine Cervical W/WO Contrast IMPRESSION: 1. Short segment peripheral foci of T2 and STIR hyperintensity are present within the cervical spinal cord with a similar appearance to the prior MRI examination. Most conspicuous foci are at the level of C2 and at the level of C5-C6. No new signal abnormalities within the spinal cord or pathologic enhancement to indicate interval or active demyelination. 2. Otherwise, unchanged appearance of the cervical spine compared to the prior examination. Electronically Signed: Emiliano Daley DO at 0:01 EST ,
== END | disposition home or self-care (01) ==
LOC: MRI 15:54
PROVIDERS: PCP Family Medicine; Referring Provider Nurse Practitioner Gerontology; Visit Provider Nurse Practitioner Gerontology
DX: G35 Multiple sclerosis (principal)
CPT/HCPCS: 70553; 72156; A9575

== ENCOUNTER → 2024-10-09 | Outpatient (CLI) | payer OTHER, SELFPAY ==
[2024-10-09 10:24] LABS: Absolute Neutrophil Count 3.3 X10^3/uL (2.0-7.7); Basophil# 0.03 X10^3/uL; Basophil% 0.6 % (0-1); Eosinophil# 0.13 X10^3/uL; Eosinophils% 2.5 % (0-5); Hematocrit 41.1 % (37-47); Hemoglobin 13.9 g/dL (12.0-15.0); Lymphocyte % 24.6 % (19-41); Mean Corp Hgb Conc 33.8 g/dL (32-36); Mean Corpuscular Hgb 31.7 pg (27.0-32.0); Mean Corpuscular Volume 93.8 fL (81-99); Mean Platelet Vol. 10.2 fl (6.2-12.0); Monocyte# 0.48 X10^3/uL; Monocyte% 9.1 % (0-10); NRBC Flagged by Analyzer 0 % (0-5); Neutrophil # 3.33 X10^3/uL (2.7-7.7); Platelet Count 291 K/mm3 (150-450); RBC Distribution Width CV 11.8 % (11.6-14.6); RBC Distribution Width SD 40.9 fl (35.1-43.9); Red Blood Count 4.38 M/mm3 (4.2-5.4); White Blood Count 5.3 K/mm3 (4.4-11.0)
[2024-10-09 11:04] LABS: ALB/GLOB Ratio 2.2 RATIO (0.9-2.4); AST(SGOT) 16 U/L (<=31); Alanine Aminotransfer ALT/SGPT 18 U/L (<=34); Albumin, Serum 4.5 g/dL (3.5-5.0); Alkaline Phosphatase 42 U/L (35-104); Anion Gap 10 (5-15); BUN 13 mg/dL (4-19); BUN/Creat Ratio 16.8 RATIO (10-20); Carbon Dioxide 25.5 mmol/L (21.0-32.0); Chloride 104 mmol/L (98-108); Creatinine, Serum 0.75 mg/dL (0.70-1.20); EST Glomerular Filtration Rate 104 (>60); Globulin 2.1 g/dL (2.2-4.2); Glucose 90 mg/dL (70-99); Potassium 3.9 mmol/L (3.3-5.1); Protein, Total 6.6 g/dL (5.9-8.4); Sodium Level 139 mmol/L (133-145); Total Bilirubin 0.32 mg/dL (0.00-1.30)
[2024-10-10 05:07] LABS: Immunoglobulin G 697 mg/dL (586-1602)
== END | disposition home or self-care (01) ==
LOC: LAB 09:49
PROVIDERS: PCP Family Medicine; Referring Provider Nurse Practitioner Gerontology; Visit Provider Nurse Practitioner Gerontology
DX: G35 Multiple sclerosis (principal); Z79.899 Other long term (current) drug therapy
CPT/HCPCS: 36415; 80053; 82784; 85025

== ENCOUNTER → 2025-05-14 | Outpatient (CLI) | payer OTHER, SELFPAY ==
--- OUTSIDE RECORDS SUMMARY | 2025-05-14 16:23 | XMS RPT_ITS | CCD ---
Author Organization [facility] Care Team Providers Care Roll Tube Setter Name Role Phone PINEDA MARTÍNEZ Attending Unavailable PINEDA MARTÍNEZ Primary Care Unavailable Dr. Adonis Almazan Primary Care Provider Dr. Adonis Almazan Referring Provider Dr. Raj Hilliard Attending Provider Dr. Adonis Almaazn Primary Care Provider Dr. Adonis Almazan Referring Provider [phone] Raj Hilliard Attending Provider [phone] Adonis Almazan Primary Care Unavailable RYLEE BOLIVAR Attending Unavailable RYLEE BOLIVAR Referring Unavailable Adonis Almazan Primary Care Unavailable RYLEE BOLIVAR Consulting Unavailable Raj Hilliard Attending Unavailable Raj Hilliard Referring Unavailable RYLEE BOLIVAR Attending Unavailable RYLEE BOLIVAR Referring Unavailable Adonis Almazan Primary Care Unavailable Adonis Almazan Primary Care Unavailable Adonis Almazan Referring Unavailable Raj Hilliard Attending Unavailable Dr. Adonis Almazan MD Primary Care Provider [phone] KATT FOOD BEVERAGE ATTENDANT-CRYLEE Attending Provider KATT FOOD BEVERAGE ATTENDANT-CRYLEE Referring Provider [phone] RYLEE BOLIVAR CHURCH HISTORY TEACHER Attending Unavailable RYLEE BOLIVAR CHURCH HISTORY TEACHER Primary Care Unavailable RYLEE BOLIVAR CHURCH HISTORY TEACHER Admitting Unavailable ADONIS ALMAZAN R Consulting Unavailable PROVIDER, UNKNOWN Consulting Unavailable Medications Current Medications Medication Drug Class(es) Dates Sig (Normalized) Sig (Original) amphetamine aspartate 1.25 mg / amphetamine sulfate 1.25 mg / dextroamphetamine saccharate 1.25 mg / dextroamphetamine sulfate 1.25 mg oral tablet (2 sources) Central Nervous System Stimulant Start: 05-17-2023 Dextroamphetamin e-Amphetamine 5 mg tablet Active PO May 17, 2023 12:00am Start: 05-17-2023 Dextroamphetam ine-Amphetamine Active PO May 17, 2023 12:00am DULoxetine 60 mg delayed release oral capsule (4 sources) Serotonin and Norepinephrine Reuptake Inhibitor Start: 08-22-2018 take 1 capsule by mouth once daily Duloxetine 60 MG capsule,delayed release(DR/EC) Active 60 mg PO DAILY August 22, 2018 1:00am gabapentin 100 mg oral capsule (1 source) Anti-epileptic Agent Start: 05-15-2024 take 1 capsule by mouth once daily Gabapentin 100 mg capsule Active 100 mg PO daily May 15, 2024 12:00am levothyroxine sodium 0.112 mg oral tablet (20 sources) l-Thyroxine Start: 05-20-2023 End: 05-24-2024 take 1 tablet by mouth once daily Levothyroxine 112 mcg tablet Active 112 ug PO DAILY May 24, 2024 9:04pm Start: 03-08-2020 End: 05-20-2023 take 1 tablet by mouth once daily Levothyroxine 125 mcg tablet Discontinued 125 ug PO DAILY March 18, 2023 12:00am May 20, 2023 7:51am Start: 10-05-2019 End: 03-08-2020 take 1 tablet by mouth once daily Levothyroxine 100 mcg tablet Discontinued 0 PO DAILY January 19, 2020 7:57am March 08, 2020 7:50am one castillo, 2 on Sundays PO daily; Start: 08-05-2019 End: 10-05-2019 take 1 tablet by mouth once daily Levothyroxine 75 MCG tablet Discontinued 75 ug PO DAILY August 05, 2019 1:00am October 05, 2019 10:04am Multivitamin 1 EACH tablet (1 source) Start: 08-22-2018 Multivitamin 1 EACH tablet Active 1 NMA PO DAILY August 22, 2018 1:00am Multivitamin preparation (3 sources) Start: 08-22-2018 Multivitamin A ctive 1 EACH PO DAILY August 22, 2018 1:00am 10 ml ocrelizumab 30 mg/ml injection (4 sources) Start: 07-29-2019 Ocrelizumab 30 0 MG/10 ML solution Active 300 mg IV .Q6M July 29, 2019 1:00am solifenacin succinate 5 mg oral tablet (2 sources) Cholinergic Muscarinic Antagonist Start: 05-17-2023 Solifenacin 5 mg tablet Active mg PO May 17, 2023 12:00am Start: 05-17-2023 Solifenacin Ac tive MG PO May 17, 2023 12:00am Completed/Discontinued Medications Medication Drug Class(es) Dates Sig (Normalized) Sig (Original) acetaminophen 325 mg / HYDROcodone bitartrate 5 mg oral tablet (4 sources) Opioid Agonist Start: 08-06-2019 End: 08-08-2019 Hydrocodone-Acetami nophen 1 TABLET tablet Discontinued 1 {tbl} PO EVERY 6 HOURS NEEDED as needed for Pain 5 2 August 06, 2019 August 07, 2019 1:00am August 08, 2019 1:09am Start: 08-06-2019 End: 08-08-2019 take 1 tablet by mouth every six hours as needed Hydrocodone-Acetaminophen Discontinued 1 TABLET PO EVERY 6 HOURS NEEDED 5 2 August 06, 2019 August 08, 2019 1:09am armodafinil 250 mg oral tablet (4 sources) Start: 08-22-2018 End: 05-17-2023 take 1 tablet by mouth once daily Armodafinil 250 MG tablet Discontinued 250 mg PO DAILY August 22, 2018 1:00am May 17, 2023 1:33pm baclofen 10 mg oral tablet (4 sources) gamma-Aminobuty lucille Acid-ergic Agonist Start: 08-22-2018 End: 06-11-2019 take 1 tablet by mouth twice daily Baclofen 10 MG tablet Discontinued 10 mg PO TWICE A DAY August 22, 2018 1:00am June 11, 2019 9:28am calcitriol 0.29420 mg oral capsule (4 sources) Vitamin D3 Analog Start: 08-06-2019 End: 08-13-2019 take 2 capsules by mouth twice daily Calcitriol 0.25 MCG capsule Discontinued 0.5 ug PO TWICE A DAY 15 02August 06, 2019 1:00am August 12, 2019 1:00am August 13, 2019 1:08am Start: 08-06-2019 End: 08-13-2019 take 0.5 ug by mouth twice daily Calcitriol Discontinued 0.5 MCG PO TWICE A DAY 15 02August 06, 2019 1:00am August 13, 2019 1:08am calcium citrate 1500 mg / cholecalciferol 250 unt oral tablet (4 sources) Vitamin D Start: 08-06-2019 End: 08-13-2019 Calcium Citrate-Vitamin D3 1 EACH tablet Discontinued 2 NMA PO 3 TIMES DAILY WITH MEALS 42 August 06, 2019 1:00am August 12, 2019 1:00am August 13, 2019 1:08am Start: 08-06-2019 End: 08-13-2019 Calcium Citrate-Vitamin D3 D iscontinued 2 EACH PO 3 TIMES DAILY WITH MEALS August 06, 2019 1:00am August 13, 2019 1:08am cholecalciferol 0.025 mg oral tablet (8 sources) Vitamin D Start: 08-06-2019 End: 08-13-2019 take 3 tablets by mouth once daily at mealtime Cholecalciferol (Vitamin D3) 1,000 UNIT tablet Discontinued 3000 U PO DAILY WITH MEALS 08 02August 06, 2019 1:00am August 12, 2019 1:00am August 13, 2019 1:08am Start: 08-06-2019 End: 08-13-2019 take 3000 [IU] by mouth once daily at mealtime Cholecalciferol (Vitamin D3) Discontinued 3000 UNIT PO DAILY WITH MEALS 08 02August 06, 2019 1:00am August 13, 2019 1:08am Start: 08-22-2018 End: 05-15-2024 take 1 capsule by mouth once daily Cholecalciferol (Vitamin D3) 2,000 UNIT capsule Discontinued 2000 U PO DAILY August 22, 2018 1:00am May 15, 2024 2:31pm Problems Problem Classification Problem Date Documented Date Episodic/Chronic Anxiety disorders (4 sources) Anxiety; Translations: [Anxiety disorder, unspecified] 08-05-2019 Chronic Complications of surgical procedures or medical care (7 sources) Postoperative hypothyroidism; Translations: [Postprocedural hypothyroidism] Onset: 05-15-2024 Chronic Disorders of teeth and jaw (4 sources) Loss of teeth due to extraction; Translations: [Partial loss of teeth, unspecified cause, unspecified class] 08-05-2019 Episodic Malaise and fatigue (4 sources) Fatigue; Translations: [Other fatigue] 08-05-2019 Episodic Mood disorders (4 sources) Depressive disorder; Translations: [Depression] 08-05-2019 Chronic Multiple sclerosis (5 sources) Multiple sclerosis; Translations: [Multiple sclerosis] Onset: 10-16-2024 06-11-2019 Chronic Other aftercare (4 sources) Other halfway (current) drug therapy; Translations: [Other manager intermediate (current) drug therapy] Onset: 06-15-2024 Episodic Other nervous system disorders (4 sources) Numbness and tingling sensation of skin; Translations: [Anesthesia of skin] 08-05-2019 Episodic Other nervous system disorders (1 source) Anesthesia of skin; Translations: [Disturbance of skin sensation] 05-17-2023 Episodic Thyroid disorders (8 sources) Non-toxic multinodular goiter; 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] 03-17-2022 Chronic Results Test Name Value Interpretation Reference Range Facility IMMUNOGLOBULINS [CCL]on 04-21 IgA [Mass/Vol] 90 mg/dL Normal 70-400 [facility] Comment on above: Performed By: #### 2 [id number] #### [facility],[address] [place] [address] 22802 IgG [Mass/Vol] 618 mg/dL Low 700-1600 [facility] Comment on above: Performed By: #### 2 25325 #### [facility],[address] [place] [address] 68656 IgM [Mass/Vol] 23 mg/dL Low 40-230 [facility] Comment on above: Result Comment: [address] [place] [address] Chadwick Young III, M.D. [id number] Performed By: #### 2 58135 #### [facility],[address] [place] [address] 14936 CBC + DIFFon 05-03-2025 Baso # 0.02 x10EE3/UL Normal 0.00 - 0.10 [facility] Comment on above: Performed By: #### 2 26148 #### [facility],[address] [place] [address] 72258 Basophils/100 WBC (Bld) 0.4 % Normal 0.0 - 2.0 [facility] Comment on above: Performed By: #### 2 15229 #### [facility],[address] [place] [address] CBC + DIFF Normal [facility] Comment on above: Result Comment: CBC- COMPLETE BLOOD COUNT Performed By: #### 2 90309 #### [facility],[address] [place] [address] EO # 0.08 x10EE3/UL Normal 0.00 - 0.50 [facility] Comment on above: Performed By: #### 2 52455 #### [facility],[address] [place] [address] Eosinophils/100 WBC (Bld) 1.7 % Normal 0.0 - 7.0 [facility] Comment on above: Performed By: #### 2 74033 #### [facility],[address] [place] [address] Erythrocyte distribution width (RBC) [Ratio] 12.7 % Normal 12.0 - 15.6 [facility] Comment on above: Performed By: #### 2 02235 #### [facility],[address] [place] [address] Hematocrit (Bld) [Volume fraction] 40.4 % Normal 34.0 - 46.0 [facility] Comment on above: Performed By: #### 2 43285 #### [facility],[address] [place] [address] Hemoglobin (Bld) [Mass/Vol] 13.3 g/dL Normal 12.0 - 16.0 [facility] Comment on above: Performed By: #### 2 80121 #### [facility],[address] [place] [address] Lymph # 1.47 x10EE3/UL Normal 0.80 - 2.80 [facility] Comment on above: Performed By: #### 2 86185 #### [facility],[address] [place] [address] Lymphocytes/100 WBC (Bld) 31.9 % Normal 20.0 - 45. 0 [facility] Comment on above: Performed By: #### 2 42021 #### [facility],[address] [place] [address] MANUAL DIFF N/A Normal [facility] Comment on above: Performed By: #### 2 39321 #### [facility],[address] [place] [address] MCH (RBC) [Entitic mass] 30 pg Normal 27 - 33 [facility] Comment on above: Performed By: #### 2 34280 #### [facility],[address] [place] [address] MCHC 33 X10 3 Normal 32 - 36 [facility] Comment on above: Performed By: #### 2 59821 #### [facility],[address] [place] [address] MCV (RBC) [Entitic vol] 92 fL Normal 80 - 99 [facility] Comment on above: Performed By: #### 2 42376 #### [facility],[address] [place] [address] Levy # 0.44 x10EE3/UL Normal 0.20 - 1.00 [facility] Comment on above: Performed By: #### 2 92092 #### [facility],[address] [place] [address] MONOS % 9.5 % Normal 0.0 - 10.0 [facility] Comment on above: Performed By: #### 2 43948 #### [facility],[address] [place] [address] Morphology Reinier (Bld) [Interp] N/A Normal [facility] Comment on above: Performed By: #### 2 20065 #### [facility],[address] [place] [address] Neut # 2.60 x10EE3/UL Normal 1.50 - 7.10 [facility] Comment on above: Performed By: #### 2 92155 #### [facility],[address] [place] [address] 55977 Neutrophils/100 WBC (Bld) 56.6 % Normal 46.0 - 76. 0 [facility] Comment on above: Performed By: #### 2 56798 #### [facility],[address] [place] [address] 29327 PLATELET 279 x10EE3/UL Normal 150 - 450 [facility] Comment on above: Performed By: #### 2 71134 #### [facility],[address] [place] [address] 45793 Platelet mean volume (Bld) [Entitic vol] 8.1 fL Normal 6.6 - 10.5 [facility] Comment on above: Result Comment: AUTO MATED DIFFERENTIAL Performed By: #### 2 21897 #### [facility],[address] [place] [address] RBC 4.37 x 10EE6/UL Normal 4.10 - 5.30 [facility] Comment on above: Performed By: #### 2 05420 #### [facility],[address] [place] [address] 86190 WBC 4.6 x 10EE3/UL Normal 4.5 - 10.8 [facility] Comment on above: Performed By: #### 2 73985 #### [facility],[address] [place] [address] 76371 CMP with eGFRon 05-03-2025 AGE 39 years Normal [facility] Comment on above: Performed By: #### 2 13205 #### [facility],[address] [place] [address] 05454 Albumin [Mass/Vol] 3.8 g/dL Normal 3.4 - 5.0 [facility] Comment on above: Performed By: #### 2 65972 #### [facility],[address] [place] [address] 01336 Albumin/Globulin [Mass ratio] 1.6 {ratio} Normal 0.9 - 1.6 [facility] Comment on above: Performed By: #### 2 12594 #### [facility],[address] [place] [address] 14550 ALK PHOS 38 U/L Low 46 - 116 [facility] Comment on above: Performed By: #### 2 33563 #### [facility],[address] [place] [address] 60689 ALT [Catalytic activity/Vol] 28 U/L Normal 16 - 63 [facility] Comment on above: Performed By: #### 2 12533 #### [facility],[address] [place] [address] 91087 Anion gap [Moles/Vol] 10 mmol/L Normal 10 - 20 [facility] Comment on above: Performed By: #### 2 43774 #### [facility],[address] [place] [address] 57459 AST [Catalytic activity/Vol] 8 U/L Low 13 - 39 [facility] Comment on above: Performed By: #### 2 79053 #### [facility],[address] [place] [address] 82104 B/C RATIO 13 ratio Normal 0 - 30 [facility] Comment on above: Performed By: #### 2 58513 #### [facility],[address] [place] [address] 64950 Bilirubin [Mass/Vol] 0.5 mg/dL Normal 0.2 - 1.0 [facility] Comment on above: Performed By: #### 2 07429 #### [facility],[address] [place] [address] 55632 Calcium [Mass/Vol] 8.3 mg/dL Low 8.5 - 10.1 [facility] Comment on above: Performed By: #### 2 62027 #### [facility],[address] [place] [address] 21778 Chloride [Moles/Vol] 106 mmol/L Normal 98 - 107 [facility] Comment on above: Performed By: #### 2 06130 #### [facility],[address] [place] [address] 28658 CMP with eGFR Normal [facility] Comment on above: Result Comment: COMP REHENSIVE METABOLIC PANEL Performed By: #### 2 54950 #### [facility],[address] [place] [address] 34720 CO2 [Moles/Vol] 30.0 mmol/L Normal 21.0 - 32.0 [facility] Comment on above: Performed By: #### 2 14590 #### [facility],[address] [place], [place] [address] Creatinine [Mass/Vol] 0.75 mg/dL Normal 0.55 - 1.02 [facility] Comment on above: Performed By: #### 2 90764 #### [facility],[address] [place] [address] 23871 GFR/1.73 sq M.predicted among non-blacks MDRD (S/P/Bld) [Vol rate/Area] mL/min/{1.73_m2} Normal 60 - 999 [facility] Comment on above: Performed By: #### 2 91847 #### [facility],[address] [place] [address] Result Comment: ACCO RDING TO THE NATIONAL KIDNEY DISEASE EDUCATION PROGRAM(NKDE), A NORMAL eGFR IS A VALUE GREATER THAN OR EQUAL TO 60 ML/MIN/1.73 SQ METERS. CHRONIC KIDNEY DISEASE: <60mL/MIN/1.73 SQ METERS KIDNEY FAILURE: <15mL/MIN/1.73 SQ METERS THIS TEST SHOULD ONLY BE USED FOR PATIENTS 18 YEARS OF AGE AND OLDER. Globulin (S) [Mass/Vol] 2.4 g/dL Normal 1.5 - 3.8 [facility] Comment on above: Performed By: #### 2 59533 #### [facility],[address] [place] [address] 24149 Glucose [Mass/Vol] 85 mg/dL Normal 74 - 106 [facility] Comment on above: Performed By: #### 2 11238 #### [facility],[address] [place] [address] 93450 Potassium [Moles/Vol] 3.9 mmol/L Normal 3.5 - 5.1 [facility] Comment on above: Performed By: #### 2 66740 #### [facility],[address] [place] [address] 06398 Protein [Mass/Vol] 6.2 g/dL Low 6.4 - 8.2 [facility] Comment on above: Performed By: #### 2 93452 #### [facility],[address] [place] [address] 74416 Sodium [Moles/Vol] 142 mmol/L Normal 136 - 145 [facility] Comment on above: Performed By: #### 2 11990 #### [facility],[address] [place] [address] 63244 Urea nitrogen [Mass/Vol] 10 mg/dL Normal 7 - 18 [facility] Comment on above: Performed By: #### 2 31961 #### [facility],[address] [place] [address] 83615 IMMUNOGLOBULINS,IGG,IGA,IGMo n 05-03-2025 IgA [Mass/Vol] 90 mg/dL Normal 70-400 [facility] Comment on above: Order Comment: Speci men Type: BLOOD SPECIMEN Ordering Facility: [facility] Address: [address] [place] [address] Performed By: #### S VICKY #### [facility] CLIA [id number] [address] [place] [address] [place] IgG [Mass/Vol] 618 mg/dL Low 700-1600 [facility] Comment on above: Order Comment: Speci men Type: BLOOD SPECIMEN Ordering Facility: [facility] Address: [address] [place] [address], [place] [address] Performed By: #### S ERIMM #### [facility] CLIA [id number] [facility] [place] [address] [place] IgM [Mass/Vol] 23 mg/dL Low 40-230 [facility] Comment on above: Order Comment: Speci men Type: BLOOD SPECIMEN Ordering Facility: [facility] Address: [address] [address] Performed By: #### S ERIMM #### [facility] CLIA [id number] [address] [place] [address] [place] Immunoglobulin Wil 5 IMMUNOGLOB G QN 697 mg/dL Normal 586-1602 [facility] Comment on above: Result Comment: Perf ormed at: [facility] [place] [id number] Materials Analyst: Juice Benitez PhD, Phone: [phone] Performed By: #### L 3200.1300, L500.4050, L100.0100 #### [facility] [address] [place] [address], [address] Absolute neutrophil countOrd ered By: RYLEE BOLIVAR on 10-09-2024 Neutrophils (Bld) [#/Vol] 3.3 10*3/uL 2.0-7.7 [facility] Anion gap in Serum or Plasma Ordered By: RYLEE BOLIVAR on 10-09-2024 Anion gap [Moles/Vol] 10 mmol/L 5-15 [facility] BUN/creatinine ratioOrdered By: RYLEE BOLIVAR on 10-09-2024 Urea nitrogen/Creatinine [Mass ratio] 16.8 mg/mg 10-20 [facility] Basophil percentageOrdered B y: RYLEE BOLIVAR on 10-09-2024 Basophils/100 WBC (Bld) 0.6 % 0-1 [facility] Bilirubin, totalOrdered By: RYLEE BOLIVAR on 10-09-2024 Bilirubin [Mass/Vol] 0.32 mg/dL 0.00-1.30 [facility] CBC W/Diff, Automatedon - Absolute Lymph 1.30 X10 3/uL Normal 0.83-4.51 [facility] Comment on above: Performed By: #### L 3200.1300, L500.4050, L100.0100 #### [facility] [address] [place], [address] Absolute Neut 3.3 X10 3/uL Normal 2.0-7.7 [facility] Comment on above: Performed By: #### L 3200.1300, L500.4050, L100.0100 #### [facility] [address] [place], [address] Basophils/100 WBC (Bld) 0.6 % Normal 0-1 [facility] Comment on above: Performed By: #### L 3200.1300, L500.4050, L100.0100 #### [facility] [address] [place], [address] Eosinophils/100 WBC (Bld) 2.5 % Normal 0-5 [facility] Comment on above: Performed By: #### L 3200.1300, L500.4050, L100.0100 #### [facility] [address] [place], [address] Erythrocyte distribution width (RBC) [Ratio] 11.8 % Normal 11.6-14.6 [facility] Comment on above: Performed By: #### L 3200.1300, L500.4050, L100.0100 #### [facility] [address] [place], [address] Hematocrit (Bld) [Volume fraction] 41.1 % Normal 37-47 [facility] Comment on above: Performed By: #### L 3200.1300, L500.4050, L100.0100 #### [facility] [address] [place], [address] Hemoglobin (Bld) [Mass/Vol] 13.9 g/dL Normal 12.0-15.0 [facility] Comment on above: Performed By: #### L 3200.1300, L500.4050, L100.0100 #### [facility] [address] [place], [address] IG% 0.200 Normal 0.0-0.9 [facility] Comment on above: Result Comment: IG% - Immature Granulocytes (promyelocytes, myelocytes and metamyelocytes) > 1% indicates that a LEFT SHIFT is Present. Performed By: #### L 3200.1300, L500.4050, L100.0100 #### [facility] [address] [place], [address] Lymphocytes/100 WBC (Bld) 24.6 % Normal 19-41 [facility] Comment on above: Performed By: #### L 3200.1300, L500.4050, L100.0100 #### [facility] [address] [place], [address] MCH (RBC) [Entitic mass] 31.7 pg Normal 27.0-32.0 [facility] Comment on above: Performed By: #### L 3200.1300, L500.4050, L100.0100 #### [facility] [address] [place], [address] MCHC (RBC) [Mass/Vol] 33.8 g/dL Normal 32-36 [facility] Comment on above: Performed By: #### L 3200.1300, L500.4050, L100.0100 #### [facility] [address] [place], [address] MCV (RBC) [Entitic vol] 93.8 fL Normal 81-99 [facility] Comment on above: Performed By: #### L 3200.1300, L500.4050, L100.0100 #### [facility] [address] [place], [address] Monocytes/100 WBC (Bld) 9.1 % Normal 0-10 [facility] Comment on above: Performed By: #### L 3200.1300, L500.4050, L100.0100 #### [facility] [address] [place], [address] Neutrophils/100 WBC (Bld) 63.0 % Normal 47-70 [facility] Comment on above: Performed By: #### L 3200.1300, L500.4050, L100.0100 #### [facility] [address] [place], [address] Nucleated RBC (Bld) [#/Vol] 0 10*3/uL Normal 0-5 [facility] Comment on above: Performed By: #### L 3200.1300, L500.4050, L100.0100 #### [facility] [address] [place], [address] Platelet mean volume (Bld) [Entitic vol] 10.2 fL Normal 6.2-12.0 [facility] Comment on above: Performed By: #### L 3200.1300, L500.4050, L100.0100 #### [facility] [address] [place], [address] Platelets (Bld) [#/Vol] 291 10*3/uL Normal 150-450 [facility] Comment on above: Performed By: #### L 3200.1300, L500.4050, L100.0100 #### [facility] [address] [place], [address] RBC (Bld) [#/Vol] 4.38 10*6/uL Normal 4.2-5.4 [facility] Comment on above: Performed By: #### L 3200.1300, L500.4050, L100.0100 #### [facility] [address] [place], [address] RDW SD 40.9 fl Normal 35.1-43.9 [facility] Comment on above: Performed By: #### L 3200.1300, L500.4050, L100.0100 #### [facility] [address] [place], [address] WBC (Bld) [#/Vol] 5.3 10*3/uL Normal 4.4-11.0 [facility] Comment on above: Performed By: #### L 3200.1300, L500.4050, L100.0100 #### [facility] [address] [place], [address] Carbon dioxide, total [Moles /volume] in Central venous bloodOrdered By: RYLEE BOLIVAR on 10-09-2024 CO2 [Moles/Vol] 25.5 mmol/L 21.0-32.0 [facility] Chloride assayOrdered By: SATHISH BOLIVAR on 10-09-2024 Chloride [Moles/Vol] 104 mmol/L 98-108 [facility] Comprehensive Metabolic Prof ilon 10-09-2024 Albumin [Mass/Vol] 4.5 g/dL Normal 3.5-5.0 [facility] Comment on above: Performed By: #### L 3200.1300, L500.4050, L100.0100 #### [facility] [address] [place], [address] Albumin/Globulin [Mass ratio] 2.2 {ratio} Normal 0.9-2.4 [facility] Comment on above: Performed By: #### L 3200.1300, L500.4050, L100.0100 #### [facility] [address] [place], [address] ALK PHOS 42 U/L Normal 35-104 [facility] Comment on above: Performed By: #### L 3200.1300, L500.4050, L100.0100 #### [facility] [address] [place], [address] ALT [Catalytic activity/Vol] 18 U/L Normal <=34 [facility] Comment on above: Performed By: #### L 3200.1300, L500.4050, L100.0100 #### [facility] [address] [place], [address] AST [Catalytic activity/Vol] 16 U/L Normal <=31 [facility] Comment on above: Performed By: #### L 3200.1300, L500.4050, L100.0100 #### [facility] [address] [place], [address] Bilirubin [Mass/Vol] 0.32 mg/dL Normal 0.00-1.30 [facility] Comment on above: Performed By: #### L 3200.1300, L500.4050, L100.0100 #### [facility] [address] [place], [address] BUN/CRE 16.8 RATIO Normal 10-20 [facility] Comment on above: Performed By: #### L 3200.1300, L500.4050, L100.0100 #### [facility] [address] [place], [address] Calcium [Mass/Vol] 9.0 mg/dL Normal 7.6-11.0 [facility] Comment on above: Performed By: #### L 3200.1300, L500.4050, L100.0100 #### [facility] [address] [place], [address] Chloride [Moles/Vol] 104 mmol/L Normal 98-108 [facility] Comment on above: Performed By: #### L 3200.1300, L500.4050, L100.0100 #### [facility] [address] [place], [address] CO2 [Moles/Vol] 25.5 mmol/L Normal 21.0-32.0 [facility] Comment on above: Performed By: #### L 3200.1300, L500.4050, L100.0100 #### [facility] [address] [place], [address] Creatinine [Mass/Vol] 0.75 mg/dL Normal 0.70-1.20 [facility] Comment on above: Performed By: #### L 3200.1300, L500.4050, L100.0100 #### [facility] [address] [place], [address] GAP 10 Normal 5-15 [facility] Comment on above: Performed By: #### L 3200.1300, L500.4050, L100.0100 #### [facility] [address] [place], [address] GFR/1.73 sq M.predicted among non-blacks MDRD (S/P/Bld) [Vol rate/Area] 104 mL/min/{1.73_m2} Normal >60 [facility] Comment on above: Result Comment: mL/m in/1.73m2 CKD-EPI Creatinine Equation (2020) Performed By: #### L 3200.1300, L500.4050, L100.0100 #### [facility] [address] [place], [address] Globulin (S) [Mass/Vol] 2.1 g/dL Low 2.2-4.2 [facility] Comment on above: Performed By: #### L 3200.1300, L500.4050, L100.0100 #### [facility] [address] [place], [address] Glucose [Mass/Vol] 90 mg/dL Normal 70-99 [facility] Comment on above: Performed By: #### L 3200.1300, L500.4050, L100.0100 #### [facility] [address] [place], [address] Potassium [Moles/Vol] 3.9 mmol/L Normal 3.3-5.1 [facility] Comment on above: Performed By: #### L 3200.1300, L500.4050, L100.0100 #### [facility] [address] [place], [address] Sodium [Moles/Vol] 139 mmol/L Normal 133-145 [facility] Comment on above: Performed By: #### L 3200.1300, L500.4050, L100.0100 #### [facility] [address] [place], [address] T PROT 6.6 g/dL Normal 5.9-8.4 [facility] Comment on above: Performed By: #### L 3200.1300, L500.4050, L100.0100 #### [facility] [address] [place], [address] Urea nitrogen [Mass/Vol] 13 mg/dL Normal 4-19 [facility] Comment on above: Performed By: #### L 3200.1300, L500.4050, L100.0100 #### [facility] [address] [place], [address] Eosinophil percentageOrdered By: RYLEE BOLIVAR on 10-09-2024 Eosinophils/100 WBC (Bld) 2.5 % 0-5 [facility] Erythrocyte distribution wid th ratioOrdered By: RYLEE BOLIVAR on 10-09-2024 Erythrocyte distribution width (RBC) [Ratio] 11.8 % 11.6-14.6 [facility] Erythrocyte distribution wid th standard deviationOrdered By: RYLEE BOLIVAR on 10-09-2024 Erythrocyte distribution width (RBC) [Entitic vol] 40.9 fL 35.1-43.9 [facility] GFR/1.73 sq M.predicted ryann g non-blacks MDRD (S/P/Bld) [Vol rate/Area]Ordered By: RYLEE BOLIVAR on 10-09-2024 Estimated GFR (MDRD) Non-Af Amer 104 >60 [facility] Comment on above: mL/min/1.73m2 CKD-EP I Creatinine Equation (2020) Hematocrit Auto (Bld) [Volum e fraction]Ordered By: RYLEE BOLIVAR on 10-09-2024 Hematocrit (Bld) [Volume fraction] 41.1 % 37-47 [facility] Hemoglobin measurementOrdere d By: RYLEE BOLIVAR on 10-09-2024 Hemoglobin (Bld) [Mass/Vol] 13.9 g/dL 12.0-15.0 [facility] IgG [Mass/Vol]Ordered By: SATHISH BOLIVAR on 10-09-2024 Immunoglobulin G 697 mg/dL [id number] [facility] Comment on above: Performed at: [place] [id number] Director: Juice Benitez PhD, Phone: [phone] Immature granulocytes/100 WB C Auto (Bld)Ordered By: RYLEE BOLIVAR on 10-09-2024 Immature granulocytes/100 WBC (Bld) 0.200 % 0.0-0.9 [facility] Comment on above: IG% - Immature Granu locytes (promyelocytes, myelocytes and metamyelocytes) > 1% indicates that a LEFT SHIFT is Present. Laboratory - Chemistry and C hemistry - challengeOrdered By: RYLEE BOLIVAR on 10-09-2024 AST [Catalytic activity/Vol] 16 U/L <32 [facility] Lymphocytes Auto (Unsp spec) [#/Vol]Ordered By: RYLEE BOLIVAR on 10-09-2024 Lymphocytes (Bld) [#/Vol] 1.30 10*3/uL 0.83-4.5 1 [facility] Lymphocytes/100 WBC Auto (Un sp spec)Ordered By: RYLEE BOLIVAR on 10-09-2024 Lymphocytes/100 WBC (Bld) 24.6 % 19-41 [facility] MCV (mean corpuscular volume ) determinationOrdered By: RYLEE BOLIVAR on 10-09-2024 MCV (RBC) [Entitic vol] 93.8 fL 81-99 [facility] Mean corpuscular hemoglobin (MCH) determinationOrdered By: RYLEE BOLIVAR on 10-09-2024 MCH (RBC) [Entitic mass] 31.7 pg 27.0-32.0 [facility] Mean corpuscular hemoglobin concentration (MCHC) determinationOrdered By: RYLEE BOLIVAR on 10-09-2024 MCHC (RBC) [Mass/Vol] 33.8 g/dL 32-36 [facility] Mean platelet volume determi nationOrdered By: RYLEE BOLIVAR on 10-09-2024 Platelet mean volume (Bld) [Entitic vol] 10.2 fL 6.2-12.0 [facility] Monocyte percentageOrdered B y: RYLEE BOLIVAR on 10-09-2024 Monocytes/100 WBC (Bld) 9.1 % 0-10 [facility] Neutrophil percentageOrdered By: RYLEE BOLIVAR on 10-09-2024 Neutrophils/100 WBC (Bld) 63.0 % 47-70 [facility] Nucleated red blood cell per centageOrdered By: RYLEE BOLIVAR on 10-09-2024 Nucleated RBC/100 WBC (Bld) [Ratio] 0 % 0-5 [facility] Platelet countOrdered By: SATHISH BOLIVAR on 10-09-2024 Platelets (Bld) [#/Vol] 291 10*3/uL 150-450 [facility] Potassium (Unsp spec) [Mass/ Vol]Ordered By: RYLEE BOLIVAR on 10-09-2024 Potassium [Moles/Vol] 3.9 mmol/L 3.3-5.1 [facility] RBC Auto (Bld) [#/Vol]Ordere d By: RYLEE BOLIVAR on 10-09-2024 RBC (Bld) [#/Vol] 4.38 10*6/uL 4.2-5.4 [facility] Serum creatinine measurement (mass/volume)Ordered By: RYLEE BOLIVAR on 10-09-2024 Creatinine [Mass/Vol] 0.75 mg/dL 0.70-1.20 [facility] Serum globulin measurementOr dered By: RYLEE BOLIVAR on 10-09-2024 Globulin (S) [Mass/Vol] 2.1 g/dL Low 2.2-4.2 [facility] Serum glucose measurement (m ass/volume)Ordered By: RYLEE BOLIVAR on 10-09-2024 Glucose [Mass/Vol] 90 mg/dL 70-99 [facility] Serum or plasma alanine albright otransferase (ALT) measurementOrdered By: RYLEE BOLIVAR on 10-09-2024 ALT [Catalytic activity/Vol] 18 U/L <35 [facility] Serum or plasma albumin antoinette urement (mass/volume)Ordered By: RYLEE BOLIVAR on 10-09-2024 Albumin [Mass/Vol] 4.5 g/dL 3.5-5.0 [facility] Serum or plasma albumin/glob ulin mass ratioOrdered By: RYLEE BOLIVAR on 10-09-2024 Albumin/Globulin [Mass ratio] 2.2 {ratio} 0.9-2.4 [facility] Serum or plasma alkaline lakia sphatase measurementOrdered By: RYLEE BOLIVAR on 10-09-2024 ALP [Catalytic activity/Vol] 42 U/L 35-104 [facility] Serum or plasma calcium antoinette urement (mass/volume)Ordered By: RYLEE BOLIVAR on 10-09-2024 Calcium [Mass/Vol] 9.0 mg/dL 7.6-11.0 [facility] Serum or plasma urea nitroge n measurement (mass/volume)Ordered By: RYLEE BOLIVAR on 10-09-2024 Urea nitrogen [Mass/Vol] 13 mg/dL 4-19 [facility] Sodium levelOrdered By: WYATT BOLIVAR on 10-09-2024 Sodium [Moles/Vol] 139 mmol/L 133-145 [facility] Total proteinOrdered By: LOUISA BOLIVAR on 10-09-2024 Protein [Mass/Vol] 6.6 g/dL 5.9-8.4 [facility] White blood cell (WBC) count Ordered By: RYLEE BOLIVAR on 10-09-2024 WBC (Bld) [#/Vol] 5.3 10*3/uL 4.4-11.0 [facility] Brain W/WO Contraston 2024 Brain W/WO Contrast [facility] [address] [place] [address] Brain W/WO Contrast MR#: [id number] Acct: [id number] Name: ISRAEL GALE Rep #: [id number] : 1985 F 38 From: Emiliano cronin DO PCP: Dr. Adonis Almazan MD Status: REG CLI Study: Brain W/WO Contrast Date of Exam: 07/30/24 Exam# [id number] Ordering Dr: RYLEE BOLIVAR FOOD BEVERAGE ATTENDANT-C -[id number] EXAM: MR HEAD WITHOUT AND WITH INTRAVENOUS CONTRAST CLINICAL INDICATION: MS TECHNIQUE: Multiplanar and multisequence MR images of the brain were obtained without and with intravenous contrast. CONTRAST: IV 12ml clariscan COMPARISON: MRI brain, 05/07/2022 FINDINGS: BRAIN AND EXTRA-AXIAL SPACES: There is no pathologic parenchymal enhancement to indicate active demyelination or other pathology. No pathologic meningeal enhancement. There are multiple foci of cortical/juxtacorti aj, subcortical, periventricular T2 and T2 FLAIR hyperintensity throughout the bilateral cerebral hemispheres which given slight variation in technique are unchanged compared to the prior examination. Periventricular lesions are elongated in oriented perpendicular to the longitudinal axis of the lateral ventricles. No new foci of signal abnormality are identified to indicate interval demyelination. Posterior fossa structures are unremarkable. Basal cisterns are patent. No evidence of restricted diffusion to indicate a recent infarct or other pathology. No intracranial mass or mass effect. No shift of midline structures. No intracranial hemorrhage or pathologic extra-axial fluid. No hydrocephalus. SELLA: No significant abnormality. Normal sella turcica, pituitary gland, infundibular stalk, optic chiasm and hypothalamus. AUDITORY SYSTEM: No significant abnormality. The internal auditory canals are patent. BONES/JOINTS: No significant abnormality. No discrete lytic or blastic abnormalities. SINUSES: Normal as visualized. Clear. MASTOID AIR CELLS: Normal as visualized. Clear. ORBITS: Normal as visualized. Both globes, extraocular muscles, optic nerves and retrobulbar fat appear unremarkable. VASCULATURE: Normal as visualized. Normal flow voids in the major intracranial circulation. MRI/Brain W/WO Contrast IMPRESSION: Areas of chronic demyelination essentially unchanged compared to the prior examination. No evidence of interval or active demyelination. Electronically Signed: Emiliano Daley at 0:04 EST , CC: Dr. Adonis Almazan MD; RYLEE BOLIVAR Vascular Manager: Signed Normal [facility] Spine Cervical W/WO Contrast on 07-30-2024 Spine Cervical W/WO Contrast [facility] [address] [place], [place] [address] Spine Cervical W/WO Contrast MR#: [id number] Acct: [id number] Name: ISRAEL GALE Rep #: [id number] : 1985 F 38 From: Emiliano cronin DO PCP: Dr. Adonis Almazan MD Status: REG CLI Study: Spine Cervical W/WO Contrast Date of Exam: Exam# [id number] Ordering Dr: RYLEE BOLIVAR -[id number] EXAM: MR CERVICAL SPINE WITHOUT AND WITH INTRAVENOUS CONTRAST CLINICAL INDICATION: MS TECHNIQUE: Multiplanar and multisequence MR images of the cervical spine without and with intravenous contrast were performed. CONTRAST: IV 12ml clariscan COMPARISON: MRI cervical spine, 05/07/2022 FINDINGS: VERTEBRAE: No significant abnormality. Normal vertebral bodies and posterior elements. Normal alignment. Normal craniocervical junction and cervicothoracic junction. No spondylolisthesis. There is preservation of the normal cervical lordosis. SPINAL CORD: Short segment peripheral foci of T2 and STIR hyperintensity are present within the cervical spinal cord with a similar appearance to the prior MRI examination. Most conspicuous foci are at the level of C2 and at the level of C5-C6. No new signal abnormalities within the spinal cord or pathologic enhancement to indicate interval or active demyelination. SOFT TISSUES: No significant abnormality. No prevertebral soft tissue swelling. LYMPH NODES: No significant abnormality. There is no cervical adenopathy. DISCS/SPINAL CANAL/NEURAL FORAMINA: C2-C3: No significant abnormality. Normal disc height and morphology. Normal spinal canal. Normal neuroforamina. C3-C4: No significant abnormality. Normal disc height and morphology. Normal spinal canal. Normal neuroforamina. C4-C5: No significant abnormality. Normal disc height and morphology. Normal spinal canal. Normal neuroforamina. C5-C6: No disc herniation, spinal canal stenosis, or neural foraminal narrowing. C6-C7: No significant abnormality. Normal disc height and morphology. Normal spinal canal. Normal neuroforamina. C7-T1: No significant abnormality. Normal disc height and morphology. Normal spinal canal. Normal neuroforamina. MRI/Spine Cervical W/WO Contrast IMPRESSION: 1. Short segment peripheral foci of T2 and STIR hyperintensity are present within the cervical spinal cord with a similar appearance to the prior MRI examination. Most conspicuous foci are at the level of C2 and at the level of C5-C6. No new signal abnormalities within the spinal cord or pathologic enhancement to indicate interval or active demyelination. 2. Otherwise, unchanged appearance of the cervical spine compared to the prior examination. Electronically Signed: Emiliano Daley DO at 0:01 EST , CC: Dr. Adonis Almazan MD; RYLEE BOLIVAR Vascular Manager: Signed Normal [facility] Immunoglobulin Wil 4 IMMUNOGLOB G QN 713 mg/dL Normal [id number] [facility] Comment on above: Order Comment: DR AMANDEEP BANSAL ORDERED TSH, FT4 KATALINA. Jaylin BOLIVAR ORDERED CBCD, IGG, CMP Result Comment: Perf ormed at: - [facility] [address] [id number] Materials Analyst: Juice Benitez PhD, Phone: [phone] Performed By: #### L 3200.1300, L500.4050, L506.0400, L501.9520, L100.0100 #### [facility] [address] [place], [address] CBC W/Diff, Automatedon 11-0 2-2024 Absolute Lymph 1.54 X10 3/uL Normal 0.83-4.51 [facility] Comment on above: Order Comment: DR AMANDEEP BANSAL ORDERED TSH, FT4 FOOD BEVERAGE ATTENDANT. L JUNK ORDERED CBCD, IGG, CMP Performed By: #### L 3200.1300, L500.4050, L506.0400, L501.9520, L100.0100 #### [facility] [address] [place], [address] Absolute Neut 2.2 X10 3/uL Normal 2.0-7.7 [facility] Comment on above: Order Comment: DR AMANDEEP BANSAL ORDERED TSH, FT4 FOOD BEVERAGE ATTENDANT. L JUNK ORDERED CBCD, IGG, CMP Performed By: #### L 3200.1300, L500.4050, L506.0400, L501.9520, L100.0100 #### [facility] [address] [place], [address] Basophils/100 WBC (Bld) 0.5 % Normal 0-1 [facility] Comment on above: Order Comment: DR AMANDEEP BANSAL ORDERED TSH, FT4 FOOD BEVERAGE ATTENDANT. L JUNK ORDERED CBCD, IGG, CMP Performed By: #### L 3200.1300, L500.4050, L506.0400, L501.9520, L100.0100 #### [facility] [address] [place], [address] Eosinophils/100 WBC (Bld) 1.4 % Normal 0-5 [facility] Comment on above: Order Comment: DR AMANDEEP BANSAL ORDERED TSH, FT4 FOOD BEVERAGE ATTENDANT. L JUNK ORDERED CBCD, IGG, CMP Performed By: #### L 3200.1300, L500.4050, L506.0400, L501.9520, L100.0100 #### [facility] [address] [place], [address] Erythrocyte distribution width (RBC) [Ratio] 11.9 % Normal 11.6-14.6 [facility] Comment on above: Order Comment: DR AMANDEEP BANSAL ORDERED TSH, FT4 FOOD BEVERAGE ATTENDANT. L JUNK ORDERED CBCD, IGG, CMP Performed By: #### L 3200.1300, L500.4050, L506.0400, L501.9520, L100.0100 #### [facility] [address] [place], [address] Hematocrit (Bld) [Volume fraction] 40.8 % Normal 37-47 [facility] Comment on above: Order Comment: DR AMANDEEP BANSAL ORDERED TSH, FT4 FOOD BEVERAGE ATTENDANT. L JUNK ORDERED CBCD, IGG, CMP Performed By: #### L 3200.1300, L500.4050, L506.0400, L501.9520, L100.0100 #### [facility] [address] [place], [address] Hemoglobin (Bld) [Mass/Vol] 13.9 g/dL Normal 12.0-15.0 [facility] Comment on above: Order Comment: DR AMANDEEP BANSAL ORDERED TSH, FT4 FOOD BEVERAGE ATTENDANT. L JUNK ORDERED CBCD, IGG, CMP Performed By: #### L 3200.1300, L500.4050, L506.0400, L501.9520, L100.0100 #### [facility] [address] [place], [address] IG% 0.000 Normal 0.0-0.9 [facility] Comment on above: Order Comment: DR AMANDEEP BANASL ORDERED TSH, FT4 FOOD BEVERAGE ATTENDANT. L JUNK ORDERED CBCD, IGG, CMP Result Comment: IG% - Immature Granulocytes (promyelocytes, myelocytes and metamyelocytes) > 1% indicates that a LEFT SHIFT is Present. Performed By: #### L 3200.1300, L500.4050, L506.0400, L501.9520, L100.0100 #### [facility] [address] [place], [address] Lymphocytes/100 WBC (Bld) 36.4 % Normal 19-41 [facility] Comment on above: Order Comment: DR AMANDEEP BANSAL ORDERED TSH, FT4 FOOD BEVERAGE ATTENDANT. L JUNK ORDERED CBCD, IGG, CMP Performed By: #### L 3200.1300, L500.4050, L506.0400, L501.9520, L100.0100 #### [facility] [address] [place], [address] MCH (RBC) [Entitic mass] 32.1 pg High 27.0-32.0 [facility] Comment on above: Order Comment: DR AMANDEEP BANSAL ORDERED TSH, FT4 FOOD BEVERAGE ATTENDANT. L [facility] ORDERED CBCD, IGG, CMP Performed By: #### L 3200.1300, L500.4050, L506.0400, L501.9520, L100.0100 #### [facility] [address] [place], [address] MCHC (RBC) [Mass/Vol] 34.1 g/dL Normal 32-36 [facility] Comment on above: Order Comment: DR AMANDEEP BANSAL ORDERED TSH, FT4 FOOD BEVERAGE ATTENDANT. [facility] ORDERED CBCD, IGG, CMP Performed By: #### L 3200.1300, L500.4050, L506.0400, L501.9520, L100.0100 #### [facility] [address] [place], [address] MCV (RBC) [Entitic vol] 94.2 fL Normal 81-99 [facility] Comment on above: Order Comment: DR AMANDEEP BANSAL ORDERED TSH, FT4 FOOD BEVERAGE ATTENDANT. [facility] ORDERED CBCD, IGG, CMP Performed By: #### L 3200.1300, L500.4050, L506.0400, L501.9520, L100.0100 #### [facility] [address] [facility] [address] [place], [address] Monocytes/100 WBC (Bld) 10.6 % High 0-10 [facility] Comment on above: Order Comment: DR AMANDEEP BANSAL ORDERED TSH, FT4 FOOD BEVERAGE ATTENDANT. L JUNK ORDERED CBCD, IGG, CMP Performed By: #### L 3200.1300, L500.4050, L506.0400, L501.9520, L100.0100 #### [facility] [address] [place], [address] Neutrophils/100 WBC (Bld) 51.1 % Normal 47-70 [facility] Comment on above: Order Comment: DR AMANDEEP BANSAL ORDERED TSH, FT4 FOOD BEVERAGE ATTENDANT. L JUNK ORDERED CBCD, IGG, CMP Performed By: #### L 3200.1300, L500.4050, L506.0400, L501.9520, L100.0100 #### [facility] [address] [place], [address] Nucleated RBC (Bld) [#/Vol] 0 10*3/uL Normal 0-5 [facility] Comment on above: Order Comment: DR AMANDEEP BANSAL ORDERED TSH, FT4 FOOD BEVERAGE ATTENDANT. L JUNK ORDERED CBCD, IGG, CMP Performed By: #### L 3200.1300, L500.4050, L506.0400, L501.9520, L100.0100 #### [facility] [address] [place], [address] Platelet mean volume (Bld) [Entitic vol] 9.9 fL Normal 6.2-12.0 [facility] Comment on above: Order Comment: DR AMANDEEP BANSAL ORDERED TSH, FT4 FOOD BEVERAGE ATTENDANT. L JUNK ORDERED CBCD, IGG, CMP Performed By: #### L 3200.1300, L500.4050, L506.0400, L501.9520, L100.0100 #### [facility] [address] [place], [address] Platelets (Bld) [#/Vol] 277 10*3/uL Normal 150-450 [facility] Comment on above: Order Comment: DR AMANDEEP BANSAL ORDERED TSH, FT4 FOOD BEVERAGE ATTENDANT. L JUNK ORDERED CBCD, IGG, CMP Performed By: #### L 3200.1300, L500.4050, L506.0400, L501.9520, L100.0100 #### [facility] [address] [place], [address] RBC (Bld) [#/Vol] 4.33 10*6/uL Normal 4.2-5.4 [facility] Comment on above: Order Comment: DR AMANDEEP BANSAL ORDERED TSH, FT4 FOOD BEVERAGE ATTENDANT. L JUNK ORDERED CBCD, IGG, CMP Performed By: #### L 3200.1300, L500.4050, L506.0400, L501.9520, L100.0100 #### [facility] [address] [place], [address] RDW SD 41.8 fl Normal 35.1-43.9 [facility] Comment on above: Order Comment: DR AMANDEEP BANSAL ORDERED TSH, FT4 FOOD BEVERAGE ATTENDANT. L JUNK ORDERED CBCD, IGG, CMP Performed By: #### L 3200.1300, L500.4050, L506.0400, L501.9520, L100.0100 #### [facility] [address] [place], [address] WBC (Bld) [#/Vol] 4.2 10*3/uL Low 4.4-11.0 [facility] Comment on above: Order Comment: DR AMANDEEP BANSAL ORDERED TSH, FT4 FOOD BEVERAGE ATTENDANT. L JUNK ORDERED CBCD, IGG, CMP Performed By: #### L 3200.1300, L500.4050, L506.0400, L501.9520, L100.0100 #### [facility] [address] [place], [address] Comprehensive Metabolic Prof ilon 05-23-2024 Albumin [Mass/Vol] 4.1 g/dL Normal 3.2-5.0 [facility] Comment on above: Order Comment: DR AMANDEEP BANSAL ORDERED TSH, FT4 FOOD BEVERAGE ATTENDANT. L JUNK ORDERED CBCD, IGG, CMP Performed By: #### L 3200.1300, L500.4050, L506.0400, L501.9520, L100.0100 #### [facility] [address] [place], [address] Albumin/Globulin [Mass ratio] 1.4 {ratio} Normal 0.9-2.4 [facility] Comment on above: Order Comment: DR AMANDEEP BANSAL ORDERED TSH, FT4 FOOD BEVERAGE ATTENDANT. L JUNK ORDERED CBCD, IGG, CMP Performed By: #### L 3200.1300, L500.4050, L506.0400, L501.9520, L100.0100 #### [facility] [address] [place], [address] ALK P 40 U/L Low 45-117 [facility] Comment on above: Order Comment: DR AMANDEEP BANSAL ORDERED TSH, FT4 FOOD BEVERAGE ATTENDANT. L JUNK ORDERED CBCD, IGG, CMP Performed By: #### L 3200.1300, L500.4050, L506.0400, L501.9520, L100.0100 #### [facility] [address] [place], [address] ALT [Catalytic activity/Vol] 43 U/L Normal 13-56 [facility] Comment on above: Order Comment: DR AMANDEEP BANSAL ORDERED TSH, FT4 FOOD BEVERAGE ATTENDANT. L JUNK ORDERED CBCD, IGG, CMP Performed By: #### L 3200.1300, L500.4050, L506.0400, L501.9520, L100.0100 #### [facility] [address] [place], [address] AST [Catalytic activity/Vol] 15 U/L Normal 15-37 [facility] Comment on above: Order Comment: DR AMANDEEP BANSAL ORDERED TSH, FT4 FOOD BEVERAGE ATTENDANT. L JUNK ORDERED CBCD, IGG, CMP Performed By: #### L 3200.1300, L500.4050, L506.0400, L501.9520, L100.0100 #### [facility] [address] [place], [address] Bilirubin [Mass/Vol] 0.30 mg/dL Normal 0.20-1.00 [facility] Comment on above: Order Comment: DR AMANDEEP BANSAL ORDERED TSH, FT4 FOOD BEVERAGE ATTENDANT. L JUNK ORDERED CBCD, IGG, CMP Result Comment: For patients on eltrombopag therapy, use of Dimension [place] TBIL is not recommended. Performed By: #### L 3200.1300, L500.4050, L506.0400, L501.9520, L100.0100 #### [facility] [address] [place], [address] BUN/CRE 13.6 RATIO Normal 10-20 [facility] Comment on above: Order Comment: DR AMANDEEP BANSAL ORDERED TSH, FT4 FOOD BEVERAGE ATTENDANT. L JUNK ORDERED CBCD, IGG, CMP Performed By: #### L 3200.1300, L500.4050, L506.0400, L501.9520, L100.0100 #### [facility] [address] [place], [address] CA,Total 8.4 mg/dL Low 8.5-10.1 [facility] Comment on above: Order Comment: DR AMANDEEP BANSAL ORDERED TSH, FT4 FOOD BEVERAGE ATTENDANT. L JUNK ORDERED CBCD, IGG, CMP Performed By: #### L 3200.1300, L500.4050, L506.0400, L501.9520, L100.0100 #### [facility] [address] [place], [address] Chloride [Moles/Vol] 108 mmol/L High 98-107 [facility] Comment on above: Order Comment: DR AMANDEEP BANSAL ORDERED TSH, FT4 FOOD BEVERAGE ATTENDANT. L JUNK ORDERED CBCD, IGG, CMP Performed By: #### L 3200.1300, L500.4050, L506.0400, L501.9520, L100.0100 #### [facility] [address] [place], [address] CO2 [Moles/Vol] 28.0 mmol/L Normal 21.0-32.0 [facility] Comment on above: Order Comment: DR AMANDEEP BANSAL ORDERED TSH, FT4 FOOD BEVERAGE ATTENDANT. L JUNK ORDERED CBCD, IGG, CMP Performed By: #### Jaylin 3200.1300, L500.4050, L506.0400, L501.9520, L100.0100 #### [facility] [address] [place], [address] Creatinine [Mass/Vol] 0.88 mg/dL Normal 0.55-1.02 [facility] Comment on above: Order Comment: DR AMANDEEP BANSAL ORDERED TSH, FT4 FOOD BEVERAGE ATTENDANT. L JUNK ORDERED CBCD, IGG, CMP Result Comment: The validity of the calculated GFR GFRAA in patients over 70 years has not been determined. Clinical correlation is essential. Performed By: #### L 3200.1300, L500.4050, L506.0400, L501.9520, L100.0100 #### [facility] [address] [place], [address] EST GFR - AA 93 mL/min Normal >60 [facility] Comment on above: Order Comment: DR AMANDEEP BANSAL ORDERED TSH, FT4 FOOD BEVERAGE ATTENDANT. L JUNK ORDERED CBCD, IGG, CMP Result Comment: Afri can [place] GFR Calc Performed By: #### L 3200.1300, L500.4050, L506.0400, L501.9520, L100.0100 #### [facility] [address] [place], [address] GAP 4 Low 5-15 [facility] Comment on above: Order Comment: DR AMANDEEP BANSAL ORDERED TSH, FT4 FOOD BEVERAGE ATTENDANT. L JUNK ORDERED CBCD, IGG, CMP Performed By: #### L 3200.1300, L500.4050, L506.0400, L501.9520, L100.0100 #### [facility] [address] [place], [address] GFR/1.73 sq M.predicted among non-blacks MDRD (S/P/Bld) [Vol rate/Area] 77 mL/min/{1.73_m2} Normal >60 [facility] Comment on above: Order Comment: DR AMANDEEP BANSAL ORDERED TSH, FT4 FOOD BEVERAGE ATTENDANT. L JUNK ORDERED CBCD, IGG, CMP Result Comment: Non- GFR Calc Performed By: #### L 3200.1300, L500.4050, L506.0400, L501.9520, L100.0100 #### [facility] [address] [facility] [place], [address] Globulin (S) [Mass/Vol] 2.9 g/dL Normal 2.2-4.2 [facility] Comment on above: Order Comment: DR AMANDEEP BANSAL ORDERED TSH, FT4 FOOD BEVERAGE ATTENDANT. L JUNK ORDERED CBCD, IGG, CMP Performed By: #### L 3200.1300, L500.4050, L506.0400, L501.9520, L100.0100 #### [facility] [address] [place], [address] Glucose [Mass/Vol] 84 mg/dL Normal 74-106 [facility] Comment on above: Order Comment: DR AMANDEEP BANSAL ORDERED TSH, FT4 FOOD BEVERAGE ATTENDANT. L JUN ORDERED CBCD, IGG, CMP Performed By: #### L 3200.1300, L500.4050, L506.0400, L501.9520, L100.0100 #### [facility] [address] [place], [address] Potassium [Moles/Vol] 4.1 mmol/L Normal 3.5-5.1 [facility] Comment on above: Order Comment: DR AMANDEEP BANSAL ORDERED TSH, FT4 FOOD BEVERAGE ATTENDANT. L [facility] ORDERED CBCD, IGG, CMP Performed By: #### L 3200.1300, L500.4050, L506.0400, L501.9520, L100.0100 #### [facility] [address] [place], [address] Sodium [Moles/Vol] 140 mmol/L Normal 136-145 [facility] Comment on above: Order Comment: DR AMANDEEP BANSAL ORDERED TSH, FT4 FOOD BEVERAGE ATTENDANT. L JUNK ORDERED CBCD, IGG, CMP Performed By: #### L 3200.1300, L500.4050, L506.0400, L501.9520, L100.0100 #### [facility] [address] 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 L JUNK ORDERED CBCD, IGG, CMP Performed By: #### L 3200.1300, L500.4050, L506.0400, L501.9520, L100.0100 #### [facility] [address] 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 L JUNK ORDERED CBCD, IGG, CMP Performed By: #### L 3200.1300, L500.4050, L506.0400, L501.9520, L100.0100 #### [facility] [address] [facility] [place], [address] T4 Free Directon 05-23-2024 T4 FREE DIRECT 0.94 ng/dL Normal 0.76-1.46 [facility] Comment on above: Order Comment: DR AMANDEEP BANSAL ORDERED TSH, FT4 FOOD BEVERAGE ATTENDANT. L JUNK ORDERED CBCD, IGG, CMP Performed By: #### L 3200.1300, L500.4050, L506.0400, L501.9520, L100.0100 #### [facility] [address] [facility] [place], [address] Thyroid Stim Hormone (TSH)on 05-23-2024 TSH 0.737 uIU/mL Normal 0.358-3.740 [facility] Comment on above: Order Comment: DR AMANDEEP BANSAL ORDERED TSH, FT4 FOOD BEVERAGE ATTENDANT. L JUNK ORDERED CBCD, IGG, CMP Performed By: #### L 3200.1300, L500.4050, L506.0400, L501.9520, L100.0100 #### [facility] [address] [place], [address] Endocrinology Visit Reporton 05-15-2024 Endocrinology Visit Report [facility] [address] [place] [address] OFFICE VISIT Date of Service: 05/15/24 MR#: [id number] Acct: [id number] Name: ISRAEL GALE Rep #: [id number] : 1985 Provider: Katerin Swanson Age/Sex: 38/F Location: [facility] Status: Signed Intake Vital Signs 05/17/23 13:30 05/15/24 14:29 Height 5 ft 6 in 5 ft 6 in Weight: 140 lb 6 oz BMI 22.6 BP 132/85 H Blood Pressure Location Lt brachial Position Sitting Pulse 63 Pulse Source Monitor Pulse Oximetry (%) 98 Oxygen Delivery Method room air Intake Visit Reasons: 1 Y FU Chief Complaint: yearly follow up Allergies No Known Allergies Allergy (Verified 05/17/23 13:32) Medications ???Medication ???Instructions ???Recorded ???Confirmed ???Type duloxetine 60 mg capsule,delayed 60 mg PO DAILY 08/22/18 05/15/24 History release multivitamin 1 ea PO DAILY 08/22/18 05/15/24 History ocrelizumab 30 mg/mL intravenous 300 mg IV .Q6M 07/29/19 05/15/24 History solution dextroamphetamine-a mphetamine 5 mg PO 05/17/23 05/15/24 History tablet solifenacin 5 mg tablet mg PO 05/17/23 05/15/24 History gabapentin 100 mg capsule 100 mg PO QDAY 05/15/24 05/15/24 History levothyroxine 112 mcg tablet 112 mcg PO DAILY #90 tabs 05/24/24 Rx PFSH Medical History Multinodular goiter (nontoxic) Multiple sclerosis Multiple thyroid nodules Anxiety Depression Numbness and tingling Fatigue Surgical History Status post biopsy of thyroid gland ( 05/2019) Hx of wisdom tooth extraction History of loop electrical excision procedure (LEEP) Family History Mother No problems noted. Social History Smoking Status: Never smoker second hand exposure: No alcohol intake: current alcohol intake frequency: a few times a month substance use type: does not use caffeine: Yes what type of physical activity do you participate in: none frequency: does not exercise HPI HPI Chief Complaint: yearly follow up Details: ISRAEL MANRIQUEZ, is a 38 F who presents to the office today for follow up. She has hypothyroidism and she is taking levothyroxine. She is s/p surgery for multiple benign nodule. ROS Const Constitutional: No fatigue or weight change ENT ENT: No dizziness/vertigo Cardio Cardiology: No chest pain at rest, chest pain with exertion, shortness of breath or palpitations Skin Skin: No wounds Endo Endocrine: No fatigue or weight change Exam Const General: cooperative, healthy appearing, comfortable, no acute distress, well developed and not cushingoid Nutritional Appearance: well nourished Orientation: alert, awake and oriented x3 HENMT Head: normal to inspection Ears: hearing grossly normal bilaterally Nose: external nose normal Mouth: oral mucosae normal Eyes General: appearance normal, both eyes and all related structures Alignment and Position: alignment normal Periorbital: periorbital findings normal Eyelids: eyelids normal Conjunctivae: conjunctivae normal Neck Neck: normal visual inspection Neck mass: No Thyroid: other (not palpable) Lymphatic: no lymphadenopathy noted Chest Chest palpation inspection: normal inspection of the chest Resp Effort Inspection: normal respiratory effort, able to speak in complete sentences, symmetric chest movement, no audible wheezes and no cough Auscultation: Bilateral: Clear to Auscultation Cardio Rate: regular rate Rhythm: regular rhythm Skin General: no rashes or lesions noted Neuro General: patient alert, patient awake and patient oriented x3 Cranial Nerves: CN's II-XI intact bilaterally Cognition: normal cognition Speech: speech normal Gait: normal gait Motor: muscle tone normal throughout Extrem General: no edema Psych Appearance: grossly normal Mental Status: mental status grossly normal Mood: congruent mood Affect: normal affect Speech and Movement: speech and movement normal Attitude: cooperative Thought Process: normal Thought Content: normal Judgment: judgment good Assessment and Plan Assessment and Plan (1) Postsurgical hypothyroidism: Status: Chronic Plan: Take levothyroxine on an empty stomach with water at least four hours after eating. Then wait 30-60 minutes before consuming any other food or beverage, especially coffee. Separate levothyroxine from vitamins by at least 4 hours. Stop taking any biotin supplement 4 days prior to having labs drawn. Labs are normal, continue current dose. I have spent [25] minutes today reviewing labs, records and history. Time includes (more content not included)... Normal [facility] Absolute lymphocyte countOrd ered By: Raj Hilliard on 05-17-2023 Lymphocytes Auto (Unsp spec) [#/Vol] 1.51 10*3/uL 0.83-4.51 [facility] Basophil percentageOrdered B y: Raj Hilliard on 05-17-2023 Basophils/100 WBC (Bld) 0.5 % 0-1 [facility] Eosinophils/100 WBC (Bld) 3.0 % 0-5 [facility] Neutrophils (Bld) [#/Vol] 3.8 10*3/uL 2.0-7.7 [facility] Neutrophils/100 WBC (Bld) 61.8 % 47-70 [facility] WBC (Bld) [#/Vol] 6.1 10*3/uL 4.4-11.0 [facility] Bilirubin [Mass/Vol] 0.40 mg/dL 0.20-1.00 [facility] Comment on above: For patients on eltr ombopag therapy, use of Dimension [place] TBIL is not recommended. Chloride [Moles/Vol] 105 mmol/L 98-107 [facility] Glucose [Mass/Vol] 95 mg/dL 74-106 [facility] Potassium [Moles/Vol] 3.7 mmol/L 3.5-5.1 [facility] Protein [Mass/Vol] 6.8 g/dL 6.4-8.2 [facility] Sodium [Moles/Vol] 139 mmol/L 136-145 [facility] Blood erythrocytes count (nu mber/volume)Ordered By: Raj Hilliard on 05-17-2023 RBC (Bld) [#/Vol] 4.13 10*6/uL 4.2-5.4 [facility] Blood hemoglobin measurement (mass/volume)Ordered By: Raj Hilliard on 05-17-2023 Hemoglobin (Bld) [Mass/Vol] 13.2 g/dL 12.0-15.0 [facility] Blood lymphocytes/100 leukoc ytesOrdered By: Raj Hilliard on 05-17-2023 Lymphocytes/100 WBC (Bld) 24.8 % 19-41 [facility] Blood monocytes/100 leukocyt esOrdered By: Raj Hilliard on 05-17-2023 Monocytes/100 WBC (Bld) 9.7 % 0-10 [facility] Blood platelet mean volumeOr dered By: Raj Hilliard on 05-17-2023 Platelet mean volume (Bld) [Entitic vol] 9.9 fL 6.2-12.0 [facility] Determination of erythrocyte mean corpuscular volume (MCV)Ordered By: Raj Hilliard on 05-17-2023 MCV (RBC) [Entitic vol] 96.9 fL 81-99 [facility] Hematocrit Auto (Bld) [Volum e fraction]Ordered By: Raj Hilliard on 05-17-2023 Hematocrit (Bld) [Volume fraction] 40.0 % 37-47 [facility] - Chemistry and C hemistry - challengeOrdered By: Raj Hilliard on 05-17-2023 ALP [Catalytic activity/Vol] 35 U/L 45-117 [facility] ALT [Catalytic activity/Vol] 36 U/L 13-56 [facility] CO2 [Moles/Vol] 29.0 mmol/L 21.0-32.0 [facility] Cobalamin (Vitamin B12) [Mass/Vol] 423 pg/mL 211-911 [facility] Free T4 [Mass/Vol] 1.14 ng/dL 0.76-1.46 [facility] Globulin (S) [Mass/Vol] 2.9 g/dL 2.2-4.2 [facility] Urea nitrogen/Creatinine [Mass ratio] 18.5 mg/mg 10-20 [facility] - Hematology and Cell countsOrdered By: Raj Hilliard on 05-17-2023 Erythrocyte distribution width (RBC) [Entitic vol] 44.0 fL 35.1-43.9 [facility] Erythrocyte distribution width (RBC) [Ratio] 12.3 % 11.6-14.6 [facility] Immature granulocytes/100 WBC (Bld) 0.200 % 0.0-0.9 [facility] Comment on above: IG% - Immature Granu locytes (promyelocytes, myelocytes and metamyelocytes) > 1% indicates that a LEFT SHIFT is Present. MCH (RBC) [Entitic mass] 32.0 pg 27.0-32.0 [facility] Nucleated RBC/100 WBC (Bld) [Ratio] 0 % 0-5 [facility] MCHC Auto (RBC) [Mass/Vol]Or dered By: Raj Hilliard on 05-17-2023 MCHC (RBC) [Mass/Vol] 33.0 g/dL 32-36 [facility] No Panel InformationOrdered By: Raj Hilliard on 05-17-2023 Estimated GFR (MDRD) Amer 120 mL/min >60 [facility] Comment on above: GFR Calc Estimated GFR (MDRD) Non-Af Amer 100 mL/min >60 [facility] Comment on above: Non- GFR Calc Thyroid Stimulating Hormone (TSH) 0.16 uIU/mL 0.358-3.74 [facility] Vitamin D 25-Hydroxy 67.0 ng/mL [facility] Comment on above: Vitamin D 25(OH) Sta tus Range Deficiency <20 ng/mL (50nmol/L) Insufficiency 20 - 30 ng/mL (50 - 75 nmol/L) Sufficiency 30 - 100 ng/mL (75 - 250 nmol/L) Toxicity >100 ng/mL (>250 nmol/L) Platelets bldOrdered By: William Hilliard on 05-17-2023 Platelets (Bld) [#/Vol] 266 10*3/uL 150-450 [facility] Serum or plasma albumin antoinette urement (mass/volume)Ordered By: Raj Hilliard on 05-17-2023 Albumin [Mass/Vol] 3.9 g/dL 3.2-5.0 [facility] Serum or plasma albumin/glob ulin mass ratioOrdered By: Raj Hilliard on 05-17-2023 Albumin/Globulin [Mass ratio] 1.3 {ratio} 0.9-2.4 [facility] Serum or plasma calcium antoinette urement (mass/volume)Ordered By: Raj Hilliard on 05-17-2023 Calcium [Mass/Vol] 8.7 mg/dL 8.5-10.1 [facility] Serum or plasma creatinine m easurement (mass/volume)Ordered By: Raj Hilliard on 05-17-2023 Creatinine [Mass/Vol] 0.70 mg/dL 0.55-1.02 [facility] Comment on above: The validity of the calculated GFR & GFRAA in patients over 70 years has not been determined. Clinical correlation is essential. Serum or plasma urea nitroge n measurement (mass/volume)Ordered By: Raj Hilliard on 05-17-2023 Urea nitrogen [Mass/Vol] 13 mg/dL 7-18 [facility] Thin prep Papanicolaou smear with manual screeningOrdered By: Rajabhay Hilliard on 05-17-2023 Thin prep Papanicolaou smear with manual screening 14 U/L 15-37 [facility] Thin prep Papanicolaou smear with manual screening 5 5-15 [facility] Absolute lymphocyte counton 10-20-2022 Lymphocytes Auto (Unsp spec) [#/Vol] 1.56 10*3/uL 0.83-4.51 [facility] Basophil percentageon 2022 Basophils/100 WBC (Bld) 0.8 % 0-1 [facility] Bilirubin [Mass/Vol] 0.40 mg/dL 0.20-1.00 [facility] Comment on above: For patients on eltr ombopag therapy, use of Dimension [place] TBIL is not recommended. Chloride [Moles/Vol] 105 mmol/L 98-107 [facility] Cholesterol [Mass/Vol] 175 mg/dL <200 [facility] Comment on above: <200 mg/dL Desirable 200-240 mg/dL Borderline >240 mg/dL High Risk Eosinophils/100 WBC (Bld) 3.4 % 0-5 [facility] Glucose [Mass/Vol] 88 mg/dL 74-106 [facility] Neutrophils (Bld) [#/Vol] 1.7 10*3/uL 2.0-7.7 [facility] Neutrophils/100 WBC (Bld) 44.9 % 47-70 [facility] Potassium [Moles/Vol] 3.8 mmol/L 3.5-5.1 [facility] Protein [Mass/Vol] 6.8 g/dL 6.4-8.2 [facility] Sodium [Moles/Vol] 137 mmol/L 136-145 [facility] Triglyceride [Mass/Vol] 40 mg/dL <199 [facility] Comment on above: The drugs N-Acetylcy steine and Metamizole may falsely depress this assay.Serum Triglycerides Reference Interval Normal <150 mg/dL Borderline high 150 - 199 mg/dL High 200 - 499 mg/dL Very High > or = 500 mg/dL WBC (Bld) [#/Vol] 3.9 10*3/uL 4.4-11.0 [facility] Blood erythrocytes count (nu mber/volume)on 10-20-2022 RBC (Bld) [#/Vol] 4.02 10*6/uL 4.2-5.4 [facility] Blood hemoglobin measurement (mass/volume)on 10-20-2022 Hemoglobin (Bld) [Mass/Vol] 13.2 g/dL 12.0-15.0 [facility] Blood lymphocytes/100 leukoc yteson 10-20-2022 Lymphocytes/100 WBC (Bld) 40.5 % 19-41 [facility] Blood monocytes/100 leukocyt eson 10-20-2022 Monocytes/100 WBC (Bld) 10.1 % 0-10 [facility] Blood platelet mean volumeon 10-20-2022 Platelet mean volume (Bld) [Entitic vol] 9.8 fL 6.2-12.0 [facility] Determination of erythrocyte mean corpuscular volume (MCV)on 10-20-2022 MCV (RBC) [Entitic vol] 98.8 fL 81-99 [facility] Hematocrit Auto (Bld) [Volum e fraction]on 10-20-2022 Hematocrit (Bld) [Volume fraction] 39.7 % 37-47 [facility] - Chemistry and C hemistry - challengeon 10-20-2022 ALP [Catalytic activity/Vol] 41 U/L 45-117 [facility] ALT [Catalytic activity/Vol] 45 U/L 13-56 [facility] CO2 [Moles/Vol] 27.0 mmol/L 21.0-32.0 [facility] Free T4 [Mass/Vol] 1.07 ng/dL 0.76-1.46 [facility] Globulin (S) [Mass/Vol] 2.9 g/dL 2.2-4.2 [facility] Urea nitrogen/Creatinine [Mass ratio] 22.6 mg/mg 10-20 [facility] - Hematology and Cell countson 10-20-2022 Erythrocyte distribution width (RBC) [Entitic vol] 44.6 fL 35.1-43.9 [facility] Erythrocyte distribution width (RBC) [Ratio] 12.2 % 11.6-14.6 [facility] Immature granulocytes/100 WBC (Bld) 0.300 % 0.0-0.9 [facility] Comment on above: IG% - Immature Granu locytes (promyelocytes, myelocytes and metamyelocytes) > 1% indicates that a LEFT SHIFT is Present. MCH (RBC) [Entitic mass] 32.8 pg 27.0-32.0 [facility] Nucleated RBC/100 WBC (Bld) [Ratio] 0 % 0-5 [facility] MCHC Auto (RBC) [Mass/Vol]on 10-20-2022 MCHC (RBC) [Mass/Vol] 33.2 g/dL 32-36 [facility] No Panel Informationon 10-20 Estimated GFR (MDRD) Amer 130 mL/min >60 [facility] Comment on above: GFR Calc Estimated GFR (MDRD) Non-Af Amer 107 mL/min >60 [facility] Comment on above: Non- GFR Calc Free Triiodothyronine (T3) pg/dL 2.4 pg/mL 2.18-3.98 [facility] Thyroid Stimulating Hormone (TSH) 0.20 uIU/mL 0.358-3.74 [facility] Vitamin D 25-Hydroxy 41.7 ng/mL [facility] Comment on above: Vitamin D 25(OH) Sta tus Range Deficiency <20 ng/mL (50nmol/L) Insufficiency 20 - 30 ng/mL (50 - 75 nmol/L) Sufficiency 30 - 100 ng/mL (75 - 250 nmol/L) Toxicity >100 ng/mL (>250 nmol/L) Platelets bldon 10-20-2022 Platelets (Bld) [#/Vol] 272 10*3/uL 150-450 [facility] Serum or plasma IgA measurem ent (mass/volume)on 10-20-2022 IgA [Mass/Vol] 129 mg/dL 87-352 [facility] Serum or plasma IgG measurem ent (mass/volume)on 10-20-2022 IgG [Mass/Vol] 685 mg/dL 586-1602 [facility] Serum or plasma IgM measurem ent (mass/volume)on 10-20-2022 IgM [Mass/Vol] 25 mg/dL 26-217 [facility] Comment on above: Result confirmed on concentration.Performed at: [facility] [address] [id number] Director: Juice Benitez PhD, Phone: [phone] Serum or plasma albumin antoinette urement (mass/volume)on 10-20-2022 Albumin [Mass/Vol] 3.9 g/dL 3.2-5.0 [facility] Serum or plasma albumin/glob ulin mass ratioon 10-20-2022 Albumin/Globulin [Mass ratio] 1.3 {ratio} 0.9-2.4 [facility] Serum or plasma calcium antoinette urement (mass/volume)on 10-20-2022 Calcium [Mass/Vol] 8.2 mg/dL 8.5-10.1 [facility] Serum or plasma cholesterol in HDL measurement (mass/volume)on 10-20-2022 Cholesterol in HDL [Mass/Vol] 82 mg/dL >40 [facility] Comment on above: The drugs N-Acetylcy steine and Metamizole may falsely depress this assay. Reference Range HDL <40 mg/dL Low HDL Cholesterol HDL >or= 60 mg/dL High HDL Cholesterol Serum or plasma cholesterol in VLDL measurement (mass/volume)on 10-20-2022 Cholesterol in VLDL [Mass/Vol] 8 mg/dL 5-40 [facility] Serum or plasma creatinine m easurement (mass/volume)on 10-20-2022 Creatinine [Mass/Vol] 0.66 mg/dL 0.55-1.02 [facility] Comment on above: The validity of the calculated GFR & GFRAA in patients over 70 years has not been determined. Clinical correlation is essential. Serum or plasma low density lipoprotein (LDL) cholesterol measurement (mass/volume)on 10-20-2022 Cholesterol in LDL [Mass/Vol] 85 mg/dL 0-130 [facility] Serum or plasma urea nitroge n measurement (mass/volume)on 10-20-2022 Urea nitrogen [Mass/Vol] 15 mg/dL 7-18 [facility] Thin prep Papanicolaou smear with manual screeningon 10-20-2022 Thin prep Papanicolaou smear with manual screening 21 U/L 15-37 [facility] Thin prep Papanicolaou smear with manual screening 5 5-15 [facility] Immunoglobulins GAMon 2021 IgA [Mass/Vol] 166 mg/dL Normal 70-400 [facility] Comment on above: Performed By: #### S ERIMM #### [facility] Routine Lab [address], [place] [address] IgG [Mass/Vol] 720 mg/dL Normal 700-1600 [facility] Comment on above: Performed By: #### S ERIMM #### [facility] Routine Lab [address], [place] [address] IgM [Mass/Vol] 33 mg/dL Low 40-230 [facility] Comment on above: Performed By: #### S ERIMM #### [facility] Routine Lab [address], [place] [address] Immunoglobulins GAMon 2020 IgA [Mass/Vol] 162 mg/dL Normal 70-400 [facility] Comment on above: Performed By: #### S ERIMM #### [facility] Routine Lab [address], [place] [address] IgG [Mass/Vol] 743 mg/dL Normal 700-1600 [facility] Comment on above: Performed By: #### S ERIMM #### [facility] Routine Lab [address], [place] [address] IgM [Mass/Vol] 39 mg/dL Low 40-230 [facility] Comment on above: Performed By: #### S ERIMM #### [facility] Routine Lab [address] [place], [place] [address] HCV AB CONFIRMon 12-01-2018 HCV AB CONFIRM SEE SEPARATE REPORT Normal U [facility] Comment on above: Result Comment: Test performed at: [facility] () [address], [place] [address] LINO GUILLERMO MD Performed By: #### L [id number] #### [place] [address] ANTI-HBson 11-29-2018 ANTI-HBs 411.8 mIU/L Normal [facility] Comment on above: Result Comment: <8.5 mIU/mL is Negative. (Individual is considered to be not immune to infection with HBV. >/= 8.5 mIU/mL and < 11.5 mIU/mL is Indeterminate. (Unable to determine if antiHBs is present at levels consistent with immunity) >11.5 mIU/mL is Positive (Anti-HBs concentration detected at >10 mIU/mL and is considered to be immune to infection with HBV) Criterion for immunity is defined by WHO Reference Preparation. Performed By: #### L 304.0465, L304.0460 #### [facility] - LAB[facility]ATORY [address] [place] [address] HEPATITIS BsAgon 11-29-2018 HEPATITIS BsAg Negative Normal NEGATIVE [facility] Comment on above: Performed By: #### L 304.0465, L304.0460 #### [facility] [address] [place] [address] Vital Signs Date Time Vital Sign Value Performing Clinician Faci lity 05-17-2023 13:57-0400 Body mass index (BMI) [Ratio] 220.3 kg/m2 Dr. Adonis Almazan Work Phone: [facility] 05-17-2023 13:57-0400 Diastolic blood pressure 71 mm[Hg] Dr. Adonis Almazan Work Phone: [facility] 05-17-2023 13:57-0400 Systolic blood pressure 122 mm[Hg] Dr. Adonis Almazan Work Phone: [facility] 05-17-2023 13:30-0400 Body height 167.[address] Adonis Almazan Work Phone: [facility] 05-17-2023 13:30-0400 Body temperature 98.4 [degF] Dr. Adonis Almazan Work Phone: [facility] 05-17-2023 13:30-0400 Body weight 619.[address] Adonis Almazan Work Phone: [facility] 05-17-2023 13:30-0400 Heart rate 66 /min Dr. Adonis Almazan Work Phone: [facility] 05-17-2023 13:30-0400 Respiratory rate 14 /min Dr. Adonis Almazan Work Phone: [facility] 05-17-2023 13:30-0400 SaO2% (BldA) [Mass fraction] 98 % Dr. Adonis Almazan Work Phone: [facility] 03-16-2022 14:36-0400 Body height 167.[address] Adonis Almazan Work Phone: [facility] Work Phone: 03-16-2022 14:36-0400 Body mass index (BMI) [Ratio] 20.8 kg/m2 Dr. Adonis Almazan Work Phone: [facility] Work Phone: 03-16-2022 14:36-0400 Body temperature 96.9 [degF] Dr. Adonis Almazan Work Phone: [facility] Work Phone: 03-16-2022 14:36-0400 Body weight 58.[address] Adonis Almazan Work Phone: [facility] Work Phone: 03-16-2022 14:36-0400 Diastolic blood pressure 82 mm[Hg] Dr. Adonis Almazan Work Phone: [facility] Work Phone: 03-16-2022 14:36-0400 Heart rate 75 /min Dr. Adonis Almazan Work Phone: [facility] Work Phone: 03-16-2022 14:36-0400 Respiratory rate 18 /min Dr. Adonis Almazan Work Phone: [facility] Work Phone: 03-16-2022 14:36-0400 SaO2% (BldA) [Mass fraction] 96 % Dr. Adonis Almazan Work Phone: [facility] Work Phone: 03-16-2022 14:36-0400 Systolic blood pressure 125 mm[Hg] Dr. Adonis Almazan Work Phone: [facility] Work Phone: Encounters Encounter Date Encounter Type Care Provider Facility Start: 05-03-2025 End: 05-03-2025 ambulatory RYLEE BOLIVAR [facility] Start: 10-09-2024 End: 10-09-[address] Adonis Almazan MD Work Phone: [facility] Work Phone: Start: 10-09-2024 End: 10-09-2024 Patient encounter procedure RYLEE BOLIVAR [employer] -Laboratory Work Phone: Start: 10-09-2024 End: 10-09-2024 ambulatory RYLEE BOLIVAR Facility:[facility] Start: 07-30-2024 End: 07-30-2024 Patient encounter procedure RYLEE BOLIVAR [employer] ATTEND[employer]-C -MRI - [facility] Work Phone: Start: 07-30-2024 End: 07-30-2024 ambulatory Adonis Almazan Facility:[facility] Start: 05-23-2024 End: 05-23-2024 ambulatory Adonis Almazan Facility:[facility] Start: 05-15-2024 End: 05-15-2024 ambulatory Adonis Almazan [place] Start: 05-17-2023 End: 05-17-[address] Adonis Almazan Work Phone: [facility] Work Phone: Start: 05-17-2023 End: 05-17-[address] Adonis Almazan Work Phone: [facility] Work Phone: Start: 10-20-2022 End: 10-20-2022 ambulatory [facility] Work Phone: Start: 10-20-2022 End: 10-20-2022 Patient encounter procedure [facility] Start: 05-07-2022 End: 05-07-[address] Adonis Almazan Work Phone: [facility] Work Phone: Start: 05-07-2022 End: 05-07-[address] Adonis Almazan Work Phone: [facility] - [facility] Start: 03-16-2022 End: 03-16-[address] Adonis Almazan Work Phone: [facility] Start: 08-20-2018 Patient encounter procedure PINEDA MARTÍNEZ Facility:[facility] Procedures Date Procedure Procedure Detail Performing Clinician Start: 07-30-2024 MRI of cervical spin e with contrast Dr. Adonis Almazan MD Work Phone: Start: 07-30-2024 MRI of brain with contrast Dr. Adonis Almazan MD Work Phone: Start: 05-07-2022 MRI of brain with contrast Dr. Adonis Almazan Work Phone: Start: 05-07-2022 MRI of cervical spin e with contrast Dr. Adonis Almazan Work Phone: H/O: surgery History of loop electrical excision procedure (LEEP) Dr. Adonis Almazan Work Phone: Plan of Treatment Date Care Activity Detail Author Start: 05-17-2023 Immunoglobulin measurement [facility] IgA [Mass/volume] in Serum or Plasma [facility] IgE [Units/volume] i n Serum or Plasma [facility] IgG [Mass/volume] in Serum or Plasma [facility] IgM [Mass/volume] in Serum or Plasma [facility] Immunizations Immunization Date Immunization Notes Care Provider Yoel [email or web address] 04-27-[address] Adonis Almazan Work Phone: [facility] Payers Date Payer Category Payer Unknown [id number] 2018 Self-pay 2016 Unknown [employer] [id number] 1986 Unknown [id number] 2.16.8 [id number] 1986 Unknown [id number] 2.16.8 [id number] Unknown [id number] Unknown [id number] 2.16.8 [id number] Unknown [id number] 2.16.8 [id number] Unknown [id number] 2.16.8 [id number] Unknown [id number] 2.16.8 [id number] Unknown [id number] Social History Date Type Detail Facility Start: 03-16-2022 End: 05-17-2023 Tobacco smoking status NHIS Unknown if ever smoked [facility] Start: 07-29-2019 Non-smoker [facility] Start: 1985 Sex Assigned At Female [facility] Start: 05-17-2023 [facility] Start: 10-16-2024 Sex Female (finding[facility] Medical Equipment Procedure Code Equipment Code Equipment Origin al Text Equipment Identifier Dates Thyroidectomy SUTURE,LIGA CLIP MED [id number] FDA Start: 08-05-2019 Thyroidectomy SUTURE,LIGA CLIP SM LT-100 FDA Start: 08-05-2019 Thyroidectomy SUTURE,LIGA CLIP MED [id number] FDA Start: 08-05-2019 Thyroidectomy SUTURE,LIGA CLIP SM LT-100 FDA Start: 08-05-2019 Thyroidectomy SUTURE,LIGA CLIP MED [id number] FDA Start: 08-05-2019 Thyroidectomy SUTURE,LIGA CLIP SM LT-100 FDA Start: 08-05-2019 Thyroidectomy SUTURE,LIGA CLIP MED [id number] FDA Start: 08-05-2019 Thyroidectomy SUTURE,LIGA CLIP SM LT-100 FDA Start: 08-05-2019 Evaluation note Note Date & Type Note Facility Evaluation note Diagnosis Onset Date Postsurgical hypothyroidism [facility] [place] Work Phone: Evaluation note Note Date & Type Note Facility Evaluation note No assessment information availa ble [facility] Work Phone: Evaluation note Note Date & Type Note Facility Evaluation note Diagnosis Onset Date Numbness and tingling acute Postsurgical hypothyroidism [facility] [place] Work Phone: Reason for referral (narrative) Note Date & Type Note Facility Reason for referral (narrative) No reason for referral information available [facility] Work Phone: Summary Purpose Family History No Family History Records FoundNo Family History Records FoundNo Family History Records FoundNo Family History Records FoundNo Family History Records FoundNo Family History Records Found Advance Directives No Advanced Directives Records Found Advance Directive Response Recorded Date/ Time Living Will No August 05 12:19pm Power of Coat Room Attendant No August 05, 2019 12:19pm Chief Complaint and Reason for Visit Chief Complaint 1 Y FU MS Reason for Visit Postsurgical hypothy roidism Chief Complaint 13 M FU, RS 04/05 E-ORDER AND PHYSICAL ORDER Reason for Visit Numbness and tinglin g Postsurgical hypothyroidism Chief Complaint Admit Date MS July 30, 2024 3: 51pm Additional Source Comments INFORMATION SOURCE (unrecogn ized section and content) DATE CREATED AUTHOR 09/04/2018 [facility] ([place]) DATE CREATED AUTHOR AUTHOR'S ORGANIZ ATION 12/12/2018 [facility] DATE CREATED AUTHOR AUTHOR'S ORGANIZ ATION 07/30/2021 [facility] DATE CREATED AUTHOR AUTHOR'S ORGANIZ ATION 10/17/2024 [facility] DATE CREATED AUTHOR AUTHOR'S ORGANIZ ATION 05/06/2025 [facility] DATE CREATED AUTHOR AUTHOR'S ORGANIZ ATION 05/07/2025 [facility] Goals (unrecognized section and content) Goals may be documented in a n alternate sectionGoals may be documented in an alternate sectionGoals may be documented in an alternate sectionGoals may be documented in an alternate section Care Teams (unrecognized sec tion and content) Team Status: Active Member Role Status Dates Dr. Adonis Almazan MD Family Provider Active Dr. Adonis Almazan MD Primary Care Provider Active Team Status: Inactive Member Role Status Dates Dr. Adonis Almazan MD Primary Care Provider Active CHRISTIAN KIRAN Referring Provider Active CHRISTIAN AYALA Attending Provider Active Team Status: Inactive Member Role Status Dates Dr. Adonis Almazan MD Primary Care Provider, Referring Provider Active Dr. Raj Hilliard MD Attending Provider Active Team Status: Inactive Member Role Status Dates Dr. Adonis Almazan MD Primary Care Provider Active Dr. Panchito Ordonez MD Attending Provider, Refer ring Provider Active Dr. Raj Hilliard MD Other Provider Active Team Status: Inactive Member Role Status Dates Dr. Adonis Almazan MD Primary Care Provider Active Start: July 30, 2024 End: July 30, 2024 KARLI LICEA Attending Provider Active Sta rt: July 30, 2024 End: July 30, 2024 KARLI LICEA Referring Provider Active Sta rt: July 30, 2024 End: July 30, 2024 Team Status: Inactive Member Role Status Dates Dr. Adonis Almazan MD Primary Care Provider Active Start: October 09, 2024 End: October 09, 2024 KARLI LICEA Attending Provider Active Sta rt: October 09, 2024 End: October 09, 2024 KARLI LICEA Referring Provider Active Sta rt: October 09, 2024 End: October 09, 2024 FOR RECORDS PERTAINING TO PATIENTS WHO ARE OR HAVE BEEN ENROLLED IN A CHEMICAL DEPENDENCY/SUBSTANCEABUSE PROGRAM, SOME INFORMATION MAY BE OMITTED. This clinical summary was aggregated from multiple sources. Caution should be exercised in using it in the provision of clinical care. This summary normalizes information from multiple sources, and as a consequence, information in this document may materially change the coding, format and clinical context of patient data. In addition, data may be omitted in some cases. CLINICAL DECISIONS SHOULD BE BASED ON THE PRIMARY CLINICAL RECORDS. [facility] [employer] [facility]. provides no warranty or guarantee of the accuracy or completeness of information in this document.
== END | disposition home or self-care (01) ==
LOC: LAB 15:10
PROVIDERS: PCP Family Medicine; Referring Provider Internal Medicine Endocrinology, Diabetes & Metabolism; Visit Provider Internal Medicine Endocrinology, Diabetes & Metabolism
DX: E89.0 Postprocedural hypothyroidism (principal)
CPT/HCPCS: 36415; 84439; 84443

== ENCOUNTER → 2025-07-10 | Outpatient (CLI) | payer OTHER, SELFPAY ==
--- OUTSIDE RECORDS SUMMARY | 2025-07-10 10:28 | XMS RPT_ITS | CCD ---
Author Organization [facility] Care Team Providers Care Senior Quality Engineer Name Role Phone PINEDA MARTÍNEZ Attending Unavailable PINEDA MARTÍNEZ Primary Care Unavailable Dr. Adonis Almazan Primary Care Provider [phone] Dr. Adonis Almazan Referring Provider [phone] Raj Hilliard Attending Provider [phone] Adonis Almazan Primary Care Provider Dr. Adonis Almazan Referring Provider Dr. Raj Hilliard Attending Provider Dr. Adonis Almazan MD Primary Care Provider KATT MI[employer]OS[employer] DYNAMICS MANAGER ARCHITECT-CRYLEE Attending Provider KATT [employer]NAM[employer] MANAGER ARCHITECT-CRYLEE Referring Provider ADONIS ALMAZAN Consulting Unavailable RYLEE BOLIVAR CNP Admitting Unavailable RYLEE BOLIVAR CNP Primary Care Unavailable RYLEE BOLIVAR CNP Attending Unavailable PROVIDER, UNKNOWN Consulting Unavailable ADONIS ALMAZAN Admitting Unavailable ADONIS ALMAZAN Primary Care Unavailable ADONIS ALMAZAN Consulting Unavailable ADONIS ALMAZAN Attending Unavailable PROVIDER, UNKNOWN Consulting Unavailable Adonis Almazan Primary Care Unavailable Raj Hilliard Attending Unavailable Raj Hilliard Referring Unavailable Adonis Almazan Primary Care Unavailable PAWELKRYLEE Attending Unavailable JUNKRYLEE Referring Unavailable Adonis Almazan Primary Care Unavailable JUNKRYLEE Attending Unavailable JUNKRYLEE Referring Unavailable AlmazanAdonis iqbal Primary Care Unavailable Adonis Almazan Referring Unavailable Raj Hilliard Attending Unavailable Medications Current Medications Medication Drug Class(es) [...] 2018 1:00am June 11, 2019 9:28am calcitriol 0.51498 mg oral capsule (4 sources) Vitamin D3 Analog Start: 08-06-2019 End: 08-13-2019 take 2 capsules by mouth twice daily Calcitriol 0.25 MCG capsule Discontinued 0.5 ug PO TWICE A DAY 28 7 August 06, 2019 1:00am August 12, 2019 1:00am August 13, 2019 1:08am Start: 08-06-2019 End: 08-13-2019 take 0.5 ug by mouth twice daily Calcitriol Discontinued 0.5 MCG PO TWICE A DAY 28 7 Loyda 16th, 2020 1:00am August 13, 2019 1:08am calcium citrate [...] EACH PO 3 TIMES DAILY WITH MEALS 42 August 06, 2019 1:00am August 13, 2019 1:08am cholecalciferol 0.025 mg oral tablet (8 sources) Vitamin D Start: 08-06-2019 End: 08-13-2019 take 3 tablets by mouth once daily at mealtime Cholecalciferol (Vitamin D3) 1,000 UNIT tablet Discontinued 3000 U PO DAILY WITH MEALS 21 August 06, 2019 1:00am August 12, 2019 [...] sources) Postoperative hypothyroidism; Translations: [Postprocedural hypothyroidism] Onset: 05-25-2025 Chronic Disorders of teeth and jaw (4 sources) Loss of teeth due to extraction; Translations: [Partial loss of teeth, unspecified cause, unspecified class] 08-05-2019 Episodic Malaise and fatigue (4 sources) Fatigue; Translations: [Other fatigue] 08-05-2019 Episodic Mood disorders (4 sources) Depressive disorder; Translations: [Depression] 08-05-2019 Chronic Multiple sclerosis (5 sources) Multiple sclerosis; Translations: [Multiple sclerosis] Onset: 10-16-2024 06-11-2019 Chronic Other aftercare (3 sources) Other skilled nursing (current) drug therapy; Translations: [Other skilled nursing (current) drug therapy] Onset: 05-03-2025 Episodic Other nervous system disorders (4 sources) Numbness and tingling sensation of skin; Translations: [Anesthesia of skin] 08-05-2019 Episodic Other nervous system disorders (1 source) Anesthesia of skin; Translations: [Disturbance of skin sensation] 05-17-2023 Episodic Syncope (3 sources) Syncope and collapse; Translations: [Syncope and collapse] Onset: 05-18-2025 Episodic Thyroid disorders (8 sources) Non-toxic multinodular goiter; 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] 03-17-2022 Chronic Results Test Name Value Interpretation Reference Range Facility BMP with eGFRon 05-18-2025 AGE 39 years Normal [facility] Comment on above: Performed By: #### 2 [id number] #### [facility],[address] [place] [address] 15673 Anion gap [Moles/Vol] 11 mmol/L Normal 10 - 20 [facility] Comment on above: Performed By: #### 2 83689 #### [facility],[address] [place] [address] 30178 BMP with eGFR Normal [facility] Comment on above: Result Comment: BASI C METABOLIC PANEL Performed By: #### 2 34774 #### [facility],[address] [place] [address] 55088 Calcium [Mass/Vol] 8.5 mg/dL Normal 8.5 - 10.1 [facility] Comment on above: Performed By: #### 2 73937 #### [facility],[address] [place] [address] 44219 Chloride [Moles/Vol] 101 mmol/L Normal 98 - 107 [facility] Comment on above: Performed By: #### 2 11119 #### [facility],[address] [place] [address] 71447 CO2 [Moles/Vol] 29.5 mmol/L Normal 21.0 - 32.0 [facility] Comment on above: Performed By: #### 2 23801 #### [facility],[address] [place], [place] [address] Creatinine [Mass/Vol] 0.73 mg/dL Normal 0.55 - 1.02 [facility] Comment on above: Performed By: #### 2 82453 #### [facility],[address] [place] [address] GFR/1.73 sq M.predicted among non-blacks MDRD (S/P/Bld) [Vol rate/Area] mL/min/{1.73_m2} Normal 60 - 999 [facility] Comment on above: Performed By: #### 2 36141 #### [facility],[address] [place] [address] Result Comment: ACCO RDING TO THE NATIONAL KIDNEY DISEASE EDUCATION PROGRAM(NKDE), A NORMAL eGFR IS A VALUE GREATER THAN OR EQUAL TO 60 ML/MIN/1.73 SQ METERS. CHRONIC KIDNEY DISEASE: <60mL/MIN/1.73 SQ METERS KIDNEY FAILURE: <15mL/MIN/1.73 SQ METERS THIS TEST SHOULD ONLY BE USED FOR PATIENTS 18 YEARS OF AGE AND OLDER. Glucose [Mass/Vol] 82 mg/dL Normal 74 - 106 [facility] Comment on above: Performed By: #### 2 27552 #### [facility],[address] [place], [place] [address] Potassium [Moles/Vol] 3.5 mmol/L Normal 3.5 - 5.1 [facility] Comment on above: Performed By: #### 2 76785 #### [facility],[address] [place] [address] 10950 Sodium [Moles/Vol] 138 mmol/L Normal 136 - 145 [facility] Comment on above: Performed By: #### 2 27938 #### [facility],[address] [place], [place] [address] Urea nitrogen [Mass/Vol] 15 mg/dL Normal 7 - 18 [facility] Comment on above: Performed By: #### 2 93872 #### [facility],[address] [place] [address] CBC + DIFFon 05-18-2025 Baso # 0.01 x10EE3/UL Normal 0.00 - 0.10 [facility] Comment on above: Performed By: #### 2 26856 #### [facility],[address] [place] [address] 28410 Basophils/100 WBC (Bld) 0.1 % Normal 0.0 - 2.0 [facility] Comment on above: Performed By: #### 2 13300 #### [facility],[address] [place] [address] CBC + DIFF Normal [facility] Comment on above: Result Comment: CBC- COMPLETE BLOOD COUNT Performed By: #### 2 32021 #### [facility],[address] [place], [place] [address] EO # 0.15 x10EE3/UL Normal 0.00 - 0.50 [facility] Comment on above: Performed By: #### 2 26994 #### [facility],[address] [place] [address] 33641 Eosinophils/100 WBC (Bld) 2.6 % Normal 0.0 - 7.0 [facility] Comment on above: Performed By: #### 2 96572 #### [facility],[address] [place] [address] 50742 Erythrocyte distribution width (RBC) [Ratio] 13.1 % Normal 12.0 - 15.6 [facility] Comment on above: Performed By: #### 2 46996 #### [facility],[address] [place], [place] [address] Hematocrit (Bld) [Volume fraction] 39.8 % Normal 34.0 - 46.0 [facility] Comment on above: Performed By: #### 2 38031 #### [facility],[address] [place] [address] Hemoglobin (Bld) [Mass/Vol] 13.4 g/dL Normal 12.0 - 16.0 [facility] Comment on above: Performed By: #### 2 48563 #### [facility],[address] [place] [address] Lymph # 2.00 x10EE3/UL Normal 0.80 - 2.80 [facility] Comment on above: Performed By: #### 2 92413 #### [facility],[address] [place] [address] Lymphocytes/100 WBC (Bld) 35.3 % Normal 20.0 - 45. 0 [facility] Comment on above: Performed By: #### 2 95718 #### [facility],[address] [place], [place] [address] MANUAL DIFF N/A Normal [facility] Comment on above: Performed By: #### 2 51720 #### [facility],[address] [place] [address] MCH (RBC) [Entitic mass] 31 pg Normal 27 - 33 [facility] Comment on above: Performed By: #### 2 88233 #### [facility],[address] [place] [address] MCHC 34 X10 3 Normal 32 - 36 [facility] Comment on above: Performed By: #### 2 68310 #### [facility],[address] [place], [place] [address] MCV (RBC) [Entitic vol] 92 fL Normal 80 - 99 [facility] Comment on above: Performed By: #### 2 11404 #### [facility],[address] [place] [address] Vernon # 0.73 x10EE3/UL Normal 0.20 - 1.00 [facility] Comment on above: Performed By: #### 2 74447 #### [facility],[address] [place] [address] MONOS % 12.9 % High 0.0 - 10.0 [facility] Comment on above: Performed By: #### 2 73085 #### [facility],[address] [place] [address] Morphology Reinier (Bld) [Interp] N/A Normal [facility] Comment on above: Performed By: #### 2 09333 #### [facility],[address] [place] [address] Neut # 2.78 x10EE3/UL Normal 1.50 - 7.10 [facility] Comment on above: Performed By: #### 2 09963 #### [place] [address] Neutrophils/100 WBC (Bld) 49.1 % Normal 46.0 - 76. 0 [facility] Comment on above: Performed By: #### 2 19455 #### [place] [address] PLATELET 303 x10EE3/UL Normal 150 - 450 [facility] Comment on above: Performed By: #### 2 68348 #### [facility],[address] [place] [address] Platelet mean volume (Bld) [Entitic vol] 8.6 fL Normal 6.6 - 10.5 [facility] Comment on above: Result Comment: AUTO MATED DIFFERENTIAL Performed By: #### 2 71145 #### [place] [address] RBC 4.33 x 10EE6/UL Normal 4.10 - 5.30 [facility] Comment on above: Performed By: #### 2 92354 #### [facility],[address] [place] [address] WBC 5.7 x 10EE3/UL Normal 4.5 - 10.8 [facility] Comment on above: Performed By: #### 2 74380 #### [facility],[address] [address] Endocrinology Visit Reporton 05-14-2025 Endocrinology Visit Report [facility] [address] [place] [id number] OFFICE VISIT Date of Service: 05/14/25 MR#: [id number] Acct: [id number] Name: ISRAEL GALE Rep #: [id number] Provider: Katerin Swanson Age/Sex: 39/F Location: [facility] [place] Status: Signed Intake Vital Signs 05/15/24 14:29 05/14/25 14:38 Height 5 ft 6 in 5 ft 6 in Weight: 128 lb BMI 20.6 BP 110/77 Blood Pressure Location Rt brachial Position Sitting Pulse 86 Pulse Source Monitor Pulse Oximetry (%) 98 Oxygen Delivery Method room air Intake Visit Reasons: 1 Y FU Chief Complaint: yearly follow up thyroid Is patient in pain?: No Allergies No Known Allergies Allergy (Verified 05/14/25 14:40) Medications ???Medication ???Instructions ???Recorded ???Confirmed ???Type duloxetine 60 mg capsule,delayed 60 mg PO DAILY 08/22/18 05/14/25 H istory release multivitamin 1 ea PO DAILY 08/22/18 05/14/25 Hi story ocrelizumab 30 mg/mL intravenous 300 mg IV .Q6M 07/29/19 05/14/25 H istory solution solifenacin 5 mg tablet mg PO 05/17/23 05/14/25 History levothyroxine 112 mcg tablet 112 mcg PO DAILY #90 tabs 05/24/24 05/14/25 Rx PFSH Medical History Multinodular goiter (nontoxic) [...] HPI HPI Chief Complaint: yearly follow up thyroid Details: ISRAEL MANRIQUEZ, is a 39 F who presents to the office today for follow up. She had thyroidectomy in July, for multinodular goiter. Pathology was benign. She is taking levothyroxine. She is feeling well. ROS Const Constitutional: No fatigue or weight [...] normal visual inspection Neck mass: No Thyroid: thyroid normal Lymphatic: no lymphadenopathy noted Chest Chest palpation [...] 4 days prior to having labs drawn. Check labs. I have spent [21] minutes today reviewing labs, records and history. Time includes coordinating care, interpretation of tests, discussion with patient's other heal (more content not included)... Normal [facility] T4 Free Directon 05-14-2025 T4 FREE DIRECT 1.90 ng/dL High 0.76-1.46 [facility] Comment on above: Performed By: #### L 501.9520, L506.0400 #### [facility] [address] [place], [address] Thyroid Stim Hormone (TSH)on 05-14-2025 TSH 0.007 uIU/mL Low 0.300-4.200 [facility] Comment on above: Performed By: #### L 501.9520, L506.0400 #### [facility] [address] [place], [address] IMMUNOGLOBULINS [CCL]on 04-21 IgA [Mass/Vol] 90 mg/dL Normal 70-400 [facility] Comment on above: Performed By: #### 2 41631 #### [facility],[address] [place] [address] 60482 IgG [Mass/Vol] 618 mg/dL Low 700-1600 [facility] Comment on above: Performed By: #### 2 11999 #### [facility],[address] [place] [address] 47411 IgM [Mass/Vol] 23 mg/dL Low 40-230 [facility] Comment on above: Result Comment: [facility] [address] [place] [address] Chadwick Young III, M.D. [id number] Performed By: #### 2 70512 #### [facility],[address] [place] [address] 99239 CBC + DIFFon 05-03-2025 Baso # 0.02 x10EE3/UL Normal 0.00 - 0.10 [facility] Comment on above: Performed By: #### 2 43021 #### [facility],[address] [place] [address] 65176 Basophils/100 WBC (Bld) 0.4 % Normal 0.0 - 2.0 [facility] Comment on above: Performed By: #### 2 98495 #### [facility],[address] [place] [address] CBC + DIFF Normal [facility] Comment on above: Result Comment: CBC- COMPLETE BLOOD COUNT Performed By: #### 2 55874 #### [facility],[address] [place] [address] EO # 0.08 x10EE3/UL Normal 0.00 - 0.50 [facility] Comment on above: Performed By: #### 2 00273 #### [facility],[address] [place] [address] 21560 Eosinophils/100 WBC (Bld) 1.7 % Normal 0.0 - 7.0 [facility] Comment on above: Performed By: #### 2 60587 #### [facility],[address] [place] [address] 68264 Erythrocyte distribution width (RBC) [Ratio] 12.7 % Normal 12.0 - 15.6 [facility] Comment on above: Performed By: #### 2 16035 #### [facility],[address] [place], [place] [address] Hematocrit (Bld) [Volume fraction] 40.4 % Normal 34.0 - 46.0 [facility] Comment on above: Performed By: #### 2 28744 #### [facility],[address] [place] [address] 96209 Hemoglobin (Bld) [Mass/Vol] 13.3 g/dL Normal 12.0 - 16.0 [facility] Comment on above: Performed By: #### 2 99580 #### [facility],[address] [place], [place] [address] Lymph # 1.47 x10EE3/UL Normal 0.80 - 2.80 [facility] Comment on above: Performed By: #### 2 38216 #### [facility],[address] [place], [place] [address] Lymphocytes/100 WBC (Bld) 31.9 % Normal 20.0 - 45. 0 [facility] Comment on above: Performed By: #### 2 25381 #### [facility],[address] [place], [place] [address] MANUAL DIFF N/A Normal [facility] Comment on above: Performed By: #### 2 42398 #### [facility],[address] [place] [address] 31857 MCH (RBC) [Entitic mass] 30 pg Normal 27 - 33 [facility] Comment on above: Performed By: #### 2 15584 #### [facility],[address] [place] [address] 26883 MCHC 33 X10 3 Normal 32 - 36 [facility] Comment on above: Performed By: #### 2 04904 #### [facility],[address] [place] [address] 43669 MCV (RBC) [Entitic vol] 92 fL Normal 80 - 99 [facility] Comment on above: Performed By: #### 2 80629 #### [facility],[address] [place] [address] 90690 Vernon # 0.44 x10EE3/UL Normal 0.20 - 1.00 [facility] Comment on above: Performed By: #### 2 88355 #### [facility],[address] [place] [address] 65712 MONOS % 9.5 % Normal 0.0 - 10.0 [facility] Comment on above: Performed By: #### 2 95697 #### [facility],[address] [place] [address] 56883 Morphology Reinier (Bld) [Interp] N/A Normal [facility] Comment on above: Performed By: #### 2 86456 #### [facility],[address] [place] [address] 50431 Neut # 2.60 x10EE3/UL Normal 1.50 - 7.10 [facility] Comment on above: Performed By: #### 2 93876 #### [facility],[address] [place] [address] 31787 Neutrophils/100 WBC (Bld) 56.6 % Normal 46.0 - 76. 0 [facility] Comment on above: Performed By: #### 2 00854 #### [facility],[address] [place] [address] 44402 PLATELET 279 x10EE3/UL Normal 150 - 450 [facility] Comment on above: Performed By: #### 2 55767 #### [facility],[address] [place] [address] 24958 Platelet mean volume (Bld) [Entitic vol] 8.1 fL Normal 6.6 - 10.5 [facility] Comment on above: Result Comment: AUTO MATED DIFFERENTIAL Performed By: #### 2 49480 #### [facility],[address] [place] [address] 64263 RBC 4.37 x 10EE6/UL Normal 4.10 - 5.30 [facility] Comment on above: Performed By: #### 2 26002 #### [facility],[address] [place] [address] 46807 WBC 4.6 x 10EE3/UL Normal 4.5 - 10.8 [facility] Comment on above: Performed By: #### 2 12522 #### [facility],[address] [place] [address] 83379 CMP with eGFRon 05-03-2025 AGE 39 years Normal [facility] Comment on above: Performed By: #### 2 16503 #### [facility],[address] [place] [address] 43938 Albumin [Mass/Vol] 3.8 g/dL Normal 3.4 - 5.0 [facility] Comment on above: Performed By: #### 2 62161 #### [facility],[address] [place] [address] 06348 Albumin/Globulin [Mass ratio] 1.6 {ratio} Normal 0.9 - 1.6 [facility] Comment on above: Performed By: #### 2 70513 #### [facility],[address] [place] [address] 60307 ALK PHOS 38 U/L Low 46 - 116 [facility] Comment on above: Performed By: #### 2 94487 #### [facility],[address] [place] [address] 98146 ALT [Catalytic activity/Vol] 28 U/L Normal 16 - 63 [facility] Comment on above: Performed By: #### 2 68002 #### [facility],[address] [place] [address] 18539 Anion gap [Moles/Vol] 10 mmol/L Normal 10 - 20 [facility] Comment on above: Performed By: #### 2 94381 #### [facility],[address] [place] [address] 55351 AST [Catalytic activity/Vol] 8 U/L Low 13 - 39 [facility] Comment on above: Performed By: #### 2 44063 #### [facility],[address] [place] [address] 02286 B/C RATIO 13 ratio Normal 0 - 30 [facility] Comment on above: Performed By: #### 2 24147 #### [facility],[address] [place] [address] 39882 Bilirubin [Mass/Vol] 0.5 mg/dL Normal 0.2 - 1.0 [facility] Comment on above: Performed By: #### 2 15439 #### [facility],[address] [place] [address] 93206 Calcium [Mass/Vol] 8.3 mg/dL Low 8.5 - 10.1 [facility] Comment on above: Performed By: #### 2 36936 #### [facility],[address] [place], [place] [address] Chloride [Moles/Vol] 106 mmol/L Normal 98 - 107 [facility] Comment on above: Performed By: #### 2 96451 #### [facility],[address] [place] [address] CMP with eGFR Normal [facility] Comment on above: Result Comment: COMP REHENSIVE METABOLIC PANEL Performed By: #### 2 16885 #### [facility],[address] [place] [address] 34379 CO2 [Moles/Vol] 30.0 mmol/L Normal 21.0 - 32.0 [facility] Comment on above: Performed By: #### 2 67698 #### [facility],[address] [place] [address] 19076 Creatinine [Mass/Vol] 0.75 mg/dL Normal 0.55 - 1.02 [facility] Comment on above: Performed By: #### 2 66343 #### [facility],[address] [place] [address] 21611 GFR/1.73 sq M.predicted among non-blacks MDRD (S/P/Bld) [Vol rate/Area] mL/min/{1.73_m2} Normal 60 - 999 [facility] Comment on above: Performed By: #### 2 81312 #### [facility],[address] [place] [address] Result Comment: ACCO RDING TO THE NATIONAL KIDNEY DISEASE EDUCATION PROGRAM(NKDE), A NORMAL eGFR IS A VALUE GREATER THAN OR EQUAL TO 60 ML/MIN/1.73 SQ METERS. CHRONIC KIDNEY DISEASE: <60mL/MIN/1.73 SQ METERS KIDNEY FAILURE: <15mL/MIN/1.73 SQ METERS THIS TEST SHOULD ONLY BE USED FOR PATIENTS 18 YEARS OF AGE AND OLDER. Globulin (S) [Mass/Vol] 2.4 g/dL Normal 1.5 - 3.8 [facility] Comment on above: Performed By: #### 2 83054 #### [place] [address] Glucose [Mass/Vol] 85 mg/dL Normal 74 - 106 [facility] Comment on above: Performed By: #### 2 [address]59 #### [place] [address] Potassium [Moles/Vol] 3.9 mmol/L Normal 3.5 - 5.1 [facility] Comment on above: Performed By: #### 2 [id number] #### [facility],[address] [place] [address] Protein [Mass/Vol] 6.2 g/dL Low 6.4 - 8.2 [facility] Comment on above: Performed By: #### 2 58563 #### [facility],[address] [place] [address] Sodium [Moles/Vol] 142 mmol/L Normal 136 - 145 [facility] Comment on above: Performed By: #### 2 92073 #### [place] [id number] Urea nitrogen [Mass/Vol] 10 mg/dL Normal 7 - 18 [facility] Comment on above: Performed By: #### 2 34405 #### [place] [id number] IMMUNOGLOBULINS,IGG,IGA,IGMo n 05-03-2025 IgA [Mass/Vol] 90 mg/dL Normal 70-400 [facility] Comment on above: Order Comment: Gris martínez Type: BLOOD SPECIMEN Ordering Facility: [facility] Address: [address] [place] [address] Performed By: #### S ERIMM #### [facility] CLIA [id number] [facility] [place] [address] [place] IgG [Mass/Vol] 618 mg/dL Low 700-1600 [facility] Comment on above: Order Comment: Gris martínez Type: BLOOD SPECIMEN Ordering Facility: [facility] Address: [address] [place] [address] Performed By: #### S ERIMM #### [facility] CLIA [id number] [address] [place] [address] [place] IgM [Mass/Vol] 23 mg/dL Low 40-230 [facility] Comment on above: Order Comment: Gris martínez Type: BLOOD SPECIMEN Ordering Facility: [facility] Address: [address] [place] [address] Performed By: #### S ERIMM #### [facility] CLIA [id number] [address] [place] [address] [place] Immunoglobulin Wil 5 IMMUNOGLOB G QN 697 mg/dL Normal 586-1602 [facility] Comment on above: Result Comment: Perf ormed at: - [facility] [address] [id number] Web Applications Programmer: Juice Benitez PhD, Phone: [phone] Performed By: #### L 6437.9246, W075.6433, L120.6309 #### [facility] [address] [place], [address] Absolute neutrophil countOrd ered By: RYLEE BOLIVAR on 10-09-2024 Neutrophils (Bld) [#/Vol] 3.3 10*3/uL 2.0-7.7 [facility] Anion gap in Serum or Plasma Ordered By: RYLEEJOHNSON BOLIVAR on 10-09-2024 Anion gap [Moles/Vol] 10 mmol/L 5-15 [facility] BUN/creatinine ratioOrdered By: RYLEE BOLIVAR on 10-09-2024 Urea nitrogen/Creatinine [Mass ratio] 16.8 mg/mg 10-20 [facility] Basophil percentageOrdered B y: RYLEE BOLIVAR on 10-09-2024 Basophils/100 WBC (Bld) 0.6 % 0-1 [facility] Bilirubin, totalOrdered By: RYLEE BOLIVAR on 10-09-2024 Bilirubin [Mass/Vol] 0.32 mg/dL 0.00-1.30 [facility] CBC W/Diff, Automatedon 09-20 Absolute Lymph 1.30 X10 3/uL Normal 0.83-4.51 [facility] Comment on above: Performed By: #### L 3200.1300, L500.4050, L100.0100 #### [facility] [address] [place], [address] Absolute Neut 3.3 X10 3/uL Normal 2.0-7.7 [facility] Comment on above: Performed By: #### L 3200.1300, L500.4050, L100.0100 #### [facility] [address] [place], [address] Basophils/100 WBC (Bld) 0.6 % Normal 0-1 [facility] Comment on above: Performed By: #### L 3200.1300, L500.4050, L100.0100 #### [facility] [address] [place], [address] Eosinophils/100 WBC (Bld) 2.5 % Normal 0-5 [facility] Comment on above: Performed By: #### L 3200.1300, L500.4050, L100.0100 #### [facility] [address] [place], [address] Erythrocyte distribution width (RBC) [Ratio] 11.8 % Normal 11.6-14.6 [facility] Comment on above: Performed By: #### L 3200.1300, L500.4050, L100.0100 #### [facility] [address] [place], [address] Hematocrit (Bld) [Volume fraction] 41.1 % Normal 37-47 [facility] Comment on above: Performed By: #### L 3200.1300, L500.4050, L100.0100 #### [facility] [address] [place], [address] Hemoglobin (Bld) [Mass/Vol] 13.9 g/dL Normal 12.0-15.0 [facility] Comment on above: Performed By: #### L 3200.1300, L500.4050, L100.0100 #### [facility] [address] [place], [address] IG% 0.200 Normal 0.0-0.9 [facility] Comment on above: Result Comment: IG% - Immature Granulocytes (promyelocytes, myelocytes and metamyelocytes) > 1% indicates that a LEFT SHIFT is Present. Performed By: #### L 3200.1300, L500.4050, L100.0100 #### [facility] [address] [place], [address] Lymphocytes/100 WBC (Bld) 24.6 % Normal 19-41 [facility] Comment on above: Performed By: #### L 3200.1300, L500.4050, L100.0100 #### [facility] [address] [place], [address] MCH (RBC) [Entitic mass] 31.7 pg Normal 27.0-32.0 [facility] Comment on above: Performed By: #### L 3200.1300, L500.4050, L100.0100 #### [facility] [address] [place], [address] MCHC (RBC) [Mass/Vol] 33.8 g/dL Normal 32-36 [facility] Comment on above: Performed By: #### L 3200.1300, L500.4050, L100.0100 #### [facility] [address] [place], [address] MCV (RBC) [Entitic vol] 93.8 fL Normal 81-99 [facility] Comment on above: Performed By: #### L 3200.1300, L500.4050, L100.0100 #### [facility] [address] [place], [address] Monocytes/100 WBC (Bld) 9.1 % Normal 0-10 [facility] Comment on above: Performed By: #### L 3200.1300, L500.4050, L100.0100 #### [facility] [address] [place], [address] Neutrophils/100 WBC (Bld) 63.0 % Normal 47-70 [facility] Comment on above: Performed By: #### L 3200.1300, L500.4050, L100.0100 #### [facility] [address] [place], [address] Nucleated RBC (Bld) [#/Vol] 0 10*3/uL Normal 0-5 [facility] Comment on above: Performed By: #### L 3200.1300, L500.4050, L100.0100 #### [facility] [address] [place], [address] Platelet mean volume (Bld) [Entitic vol] 10.2 fL Normal 6.2-12.0 [facility] Comment on above: Performed By: #### L 3200.1300, L500.4050, L100.0100 #### [facility] [address] [place], [address] Platelets (Bld) [#/Vol] 291 10*3/uL Normal 150-450 [facility] Comment on above: Performed By: #### L 3200.1300, L500.4050, L100.0100 #### [facility] [address] [place], [address] RBC (Bld) [#/Vol] 4.38 10*6/uL Normal 4.2-5.4 [facility] Comment on above: Performed By: #### L 3200.1300, L500.4050, L100.0100 #### [facility] [address] [place], [address] RDW SD 40.9 fl Normal 35.1-43.9 [facility] Comment on above: Performed By: #### L 3200.1300, L500.4050, L100.0100 #### [facility] [address] [place], [address] WBC (Bld) [#/Vol] 5.3 10*3/uL Normal 4.4-11.0 [facility] Comment on above: Performed By: #### L 3200.1300, L500.4050, L100.0100 #### [facility] [address] [place], [address] Carbon dioxide, total [Moles /volume] in Central venous bloodOrdered By: RYLEE BOLIVAR on 10-09-2024 CO2 [Moles/Vol] 25.5 mmol/L 21.0-32.0 [facility] Chloride assayOrdered By: SATHISH BOLIVAR on 10-09-2024 Chloride [Moles/Vol] 104 mmol/L 98-108 [facility] Comprehensive Metabolic Prof ilon 10-09-2024 Albumin [Mass/Vol] 4.5 g/dL Normal 3.5-5.0 [facility] Comment on above: Performed By: #### L 3200.1300, L500.4050, L100.0100 #### [facility] [address] [place], [address] Albumin/Globulin [Mass ratio] 2.2 {ratio} Normal 0.9-2.4 [facility] Comment on above: Performed By: #### L 3200.1300, L500.4050, L100.0100 #### [facility] [address] [place], [address] ALK PHOS 42 U/L Normal 35-104 [facility] Comment on above: Performed By: #### L 3200.1300, L500.4050, L100.0100 #### [facility] [address] [place], [address] ALT [Catalytic activity/Vol] 18 U/L Normal <=34 [facility] Comment on above: Performed By: #### L 3200.1300, L500.4050, L100.0100 #### [facility] [address] [place], [address] AST [Catalytic activity/Vol] 16 U/L Normal <=31 [facility] Comment on above: Performed By: #### L 3200.1300, L500.4050, L100.0100 #### [facility] [address] [place], [address] Bilirubin [Mass/Vol] 0.32 mg/dL Normal 0.00-1.30 [facility] Comment on above: Performed By: #### L 3200.1300, L500.4050, L100.0100 #### [facility] [address] [place], [address] BUN/CRE 16.8 RATIO Normal 10-20 [facility] Comment on above: Performed By: #### L 3200.1300, L500.4050, L100.0100 #### [facility] [address] [place], [address] Calcium [Mass/Vol] 9.0 mg/dL Normal 7.6-11.0 [facility] Comment on above: Performed By: #### L 3200.1300, L500.4050, L100.0100 #### [facility] [address] [place], [address] Chloride [Moles/Vol] 104 mmol/L Normal 98-108 [facility] Comment on above: Performed By: #### L 3200.1300, L500.4050, L100.0100 #### [facility] [address] [place] [place], [address] CO2 [Moles/Vol] 25.5 mmol/L Normal 21.0-32.0 [facility] Comment on above: Performed By: #### L 3200.1300, L500.4050, L100.0100 #### [facility] [address] [place], [address] Creatinine [Mass/Vol] 0.75 mg/dL Normal 0.70-1.20 [facility] Comment on above: Performed By: #### L 3200.1300, L500.4050, L100.0100 #### [facility] [address] [place], [address] GAP 10 Normal 5-15 [facility] Comment on above: Performed By: #### L 3200.1300, L500.4050, L100.0100 #### [facility] [address] [place], [address] GFR/1.73 sq M.predicted among non-blacks MDRD (S/P/Bld) [Vol rate/Area] 104 mL/min/{1.73_m2} Normal >60 [facility] Comment on above: Result Comment: mL/m in/1.73m2 CKD-EPI Creatinine Equation (2020) Performed By: #### L 3200.1300, L500.4050, L100.0100 #### [facility] [address] [place], [address] Globulin (S) [Mass/Vol] 2.1 g/dL Low 2.2-4.2 [facility] Comment on above: Performed By: #### L 3200.1300, L500.4050, L100.0100 #### [facility] [address] [place], [address] Glucose [Mass/Vol] 90 mg/dL Normal 70-99 [facility] Comment on above: Performed By: #### L 3200.1300, L500.4050, L100.0100 #### [facility] [address] [place], [address] Potassium [Moles/Vol] 3.9 mmol/L Normal 3.3-5.1 [facility] Comment on above: Performed By: #### L 3200.1300, L500.4050, L100.0100 #### [facility] [address] [place], [address] Sodium [Moles/Vol] 139 mmol/L Normal 133-145 [facility] Comment on above: Performed By: #### L 3200.1300, L500.4050, L100.0100 #### [facility] [address] [place], [address] T PROT 6.6 g/dL Normal 5.9-8.4 [facility] Comment on above: Performed By: #### L 3200.1300, L500.4050, L100.0100 #### [facility] [address] [place], [address] Urea nitrogen [Mass/Vol] 13 mg/dL Normal 4-19 [facility] Comment on above: Performed By: #### L 3200.1300, L500.4050, L100.0100 #### [facility] [address] [place], [address] Eosinophil percentageOrdered By: RYLEE BOLIVAR on 10-09-2024 Eosinophils/100 WBC (Bld) 2.5 % 0-5 [facility] Erythrocyte distribution wid th ratioOrdered By: RYLEE BOLIVAR on 10-09-2024 Erythrocyte distribution width (RBC) [Ratio] 11.8 % 11.6-14.6 [facility] Erythrocyte distribution wid th standard deviationOrdered By: RYLEE BOLIVAR on 10-09-2024 Erythrocyte distribution width (RBC) [Entitic vol] 40.9 fL 35.1-43.9 [facility] GFR/1.73 sq M.predicted ryann g non-blacks MDRD (S/P/Bld) [Vol rate/Area]Ordered By: RYLEE BOLIVAR on 10-09-2024 Estimated GFR (MDRD) Non-Af Amer 104 >60 [facility] Comment on above: mL/min/1.73m2 CKD-EP I Creatinine Equation (2020) Hematocrit Auto (Bld) [Volum e fraction]Ordered By: RYLEE BOLIVAR on 10-09-2024 Hematocrit (Bld) [Volume fraction] 41.1 % 37-47 [facility] Hemoglobin measurementOrdere d By: RYLEE BOLIVAR on 10-09-2024 Hemoglobin (Bld) [Mass/Vol] 13.9 g/dL 12.0-15.0 [facility] IgG [Mass/Vol]Ordered By: SATHISH BOLIVAR on 10-09-2024 Immunoglobulin G 697 mg/dL 586-1602 [facility] Comment on above: Performed at: - [address] [id number] Director: Juice Benitez PhD, Phone: [phone] Immature granulocytes/100 WB C Auto (Bld)Ordered By: RYLEE BOLIVAR on 10-09-2024 Immature granulocytes/100 WBC (Bld) 0.200 % 0.0-0.9 [facility] Comment on above: IG% - Immature Granu locytes (promyelocytes, myelocytes and metamyelocytes) > 1% indicates that a LEFT SHIFT is Present. Laboratory - Chemistry and C hemistry - challengeOrdered By: RYLEE BOLIVAR on 10-09-2024 AST [Catalytic activity/Vol] 16 U/L <32 [facility] Lymphocytes Auto (Unsp spec) [#/Vol]Ordered By: RYLEE BOLIVAR on 10-09-2024 Lymphocytes (Bld) [#/Vol] 1.30 10*3/uL 0.83-4.5 1 [facility] Lymphocytes/100 WBC Auto (Un sp spec)Ordered By: RYLEE BOLIVAR on 10-09-2024 Lymphocytes/100 WBC (Bld) 24.6 % 19-41 [facility] MCV (mean corpuscular volume ) determinationOrdered By: RYLEE BOLIVAR on 10-09-2024 MCV (RBC) [Entitic vol] 93.8 fL 81-99 [facility] Mean corpuscular hemoglobin (MCH) determinationOrdered By: RYLEE BOLIVAR on 10-09-2024 MCH (RBC) [Entitic mass] 31.7 pg 27.0-32.0 [facility] Mean corpuscular hemoglobin concentration (MCHC) determinationOrdered By: RYLEE BOLIVAR on 10-09-2024 MCHC (RBC) [Mass/Vol] 33.8 g/dL 32-36 [facility] Mean platelet volume determi nationOrdered By: RYLEE BOLIVAR on 10-09-2024 Platelet mean volume (Bld) [Entitic vol] 10.2 fL 6.2-12.0 [facility] Monocyte percentageOrdered B y: RYLEE BOLIVAR on 10-09-2024 Monocytes/100 WBC (Bld) 9.1 % 0-10 [facility] Neutrophil percentageOrdered By: RYLEE BOLIVAR on 10-09-2024 Neutrophils/100 WBC (Bld) 63.0 % 47-70 [facility] Nucleated red blood cell per centageOrdered By: RYLEE BOLIVAR on 10-09-2024 Nucleated RBC/100 WBC (Bld) [Ratio] 0 % 0-5 [facility] Platelet countOrdered By: SATHISH BOLIVAR on 10-09-2024 Platelets (Bld) [#/Vol] 291 10*3/uL 150-450 [facility] Potassium (Unsp spec) [Mass/ Vol]Ordered By: RYLEE BOLIVAR on 10-09-2024 Potassium [Moles/Vol] 3.9 mmol/L 3.3-5.1 [facility] RBC Auto (Bld) [#/Vol]Ordere d By: RYLEE BOLIVAR on 10-09-2024 RBC (Bld) [#/Vol] 4.38 10*6/uL 4.2-5.4 [facility] Serum creatinine measurement (mass/volume)Ordered By: RYLEE BOLIVAR on 10-09-2024 Creatinine [Mass/Vol] 0.75 mg/dL 0.70-1.20 [facility] Serum globulin measurementOr dered By: RYLEE BOLIVAR on 10-09-2024 Globulin (S) [Mass/Vol] 2.1 g/dL Low 2.2-4.2 [facility] Serum glucose measurement (m ass/volume)Ordered By: RYLEE BOLIVAR on 10-09-2024 Glucose [Mass/Vol] 90 mg/dL 70-99 [facility] Serum or plasma alanine albright otransferase (ALT) measurementOrdered By: RYLEE BOLIVAR on 10-09-2024 ALT [Catalytic activity/Vol] 18 U/L <35 [facility] Serum or plasma albumin antoinette urement (mass/volume)Ordered By: RYLEE BOLIVAR on 10-09-2024 Albumin [Mass/Vol] 4.5 g/dL 3.5-5.0 [facility] Serum or plasma albumin/glob ulin mass ratioOrdered By: RYLEE BOLIVAR on 10-09-2024 Albumin/Globulin [Mass ratio] 2.2 {ratio} 0.9-2.4 [facility] Serum or plasma alkaline lakia sphatase measurementOrdered By: RYLEE BOLIVAR on 10-09-2024 ALP [Catalytic activity/Vol] 42 U/L 35-104 [facility] Serum or plasma calcium antoinette urement (mass/volume)Ordered By: RYLEE BOLIVAR on 10-09-2024 Calcium [Mass/Vol] 9.0 mg/dL 7.6-11.0 [facility] Serum or plasma urea nitroge n measurement (mass/volume)Ordered By: RYLEE BOLIVAR on 10-09-2024 Urea nitrogen [Mass/Vol] 13 mg/dL 4-19 [facility] Sodium levelOrdered By: WYATT BOLIVAR on 10-09-2024 Sodium [Moles/Vol] 139 mmol/L 133-145 [facility] Total proteinOrdered By: LOUISA STEINER KATT on 10-09-2024 Protein [Mass/Vol] 6.6 g/dL 5.9-8.4 [facility] White blood cell (WBC) count Ordered By: RYLEE BOLIVAR on 10-09-2024 WBC (Bld) [#/Vol] 5.3 10*3/uL 4.4-11.0 [facility] Brain W/WO Contraston 2024 Brain W/WO Contrast [facility] [address] [place] [id number] Brain W/WO Contrast MR#: [id number] Acct: [id number] Name: ISRAEL GALE Rep #: [id number] : 1985 F 38 From: Emiliano cronin DO PCP: Dr. Adonis Almazan MD Status: [facility] Study: Brain W/WO Contrast Date of Exam: 07/30/24 Exam# [id number] Ordering Dr: RYLEE BOLIVAR [employer] ARCHITECT-C -[id number] EXAM: MR HEAD WITHOUT AND WITH [...] or active demyelination. Electronically Signed: Emiliano Daley DO at 0:04 EST , CC: Dr. Adonis Almazan MD; RYLEE BOLIVAR Road Builder: Signed Normal [facility] Spine Cervical W/WO Contrast on 07-30-2024 Spine Cervical W/WO Contrast [facility] [address] [place] [address] Spine Cervical W/WO Contrast MR#: [id number] Acct: [id number] Name: ISRAEL GALE Rep #: [id number] : 1985 F 38 From: Emiliano cronin DO PCP: Dr. Adonis Almazan MD Status: REG CLI Study: Spine Cervical W/WO Contrast Date of Exam: Exam# [id number] Ordering Dr: RYLEE BOLIVAR -[id number] EXAM: MR CERVICAL SPINE WITHOUT AND [...] to the prior examination. Electronically Signed: Emiliano Daley, at 0:01 EST , CC: Dr. Adonis Almazan MD; RYLEE BOLIVAR Road Builder: Signed Normal [facility] Absolute lymphocyte countOrd ered By: Raj Hilliard on 05-17-2023 Lymphocytes Auto (Unsp spec) [#/Vol] 1.51 10*3/uL 0.83-4.51 [facility] Basophil percentageOrdered B y: Raj Hilliard on 05-17-2023 Basophils/100 WBC (Bld) 0.5 % 0-1 [facility] Eosinophils/100 WBC (Bld) 3.0 % 0-5 [facility] Neutrophils (Bld) [#/Vol] 3.8 10*3/uL 2.0-7.7 [facility] Neutrophils/100 WBC (Bld) 61.8 % 47-70 [facility] WBC (Bld) [#/Vol] 6.1 10*3/uL 4.4-11.0 [facility] Bilirubin [Mass/Vol] 0.40 mg/dL 0.20-1.00 [facility] Comment on above: For patients on eltr ombopag therapy, use of Dimension [place] TBIL is not recommended. Chloride [Moles/Vol] 105 mmol/L 98-107 [facility] Glucose [Mass/Vol] 95 mg/dL 74-106 [facility] Potassium [Moles/Vol] 3.7 mmol/L 3.5-5.1 [facility] Protein [Mass/Vol] 6.8 g/dL 6.4-8.2 [facility] Sodium [Moles/Vol] 139 mmol/L 136-145 [facility] Blood erythrocytes count (nu mber/volume)Ordered By: Raj Hilliard on 05-17-2023 RBC (Bld) [#/Vol] 4.13 10*6/uL 4.2-5.4 [facility] Blood hemoglobin measurement (mass/volume)Ordered By: Raj Hilliard on 05-17-2023 Hemoglobin (Bld) [Mass/Vol] 13.2 g/dL 12.0-15.0 [facility] Blood lymphocytes/100 leukoc ytesOrdered By: Raj Hilliard on 05-17-2023 Lymphocytes/100 WBC (Bld) 24.8 % 19-41 [facility] Blood monocytes/100 leukocyt esOrdered By: Raj Hilliard on 05-17-2023 Monocytes/100 WBC (Bld) 9.7 % 0-10 [facility] Blood platelet mean volumeOr dered By: Raj Hilliard on 05-17-2023 Platelet mean volume (Bld) [Entitic vol] 9.9 fL 6.2-12.0 [facility] Determination of erythrocyte mean corpuscular volume (MCV)Ordered By: Raj Hilliard on 05-17-2023 MCV (RBC) [Entitic vol] 96.9 fL 81-99 [facility] Hematocrit Auto (Bld) [Volum e fraction]Ordered By: Raj Hilliard on 05-17-2023 Hematocrit (Bld) [Volume fraction] 40.0 % 37-47 [facility] Laboratory - Chemistry and C hemistry - challengeOrdered By: Rajabhay Hilliard on 05-17-2023 ALP [Catalytic activity/Vol] 35 U/L 45-117 [facility] ALT [Catalytic activity/Vol] 36 U/L 13-56 [facility] CO2 [Moles/Vol] 29.0 mmol/L 21.0-32.0 [facility] Cobalamin (Vitamin B12) [Mass/Vol] 423 pg/mL 211-911 [facility] Free T4 [Mass/Vol] 1.14 ng/dL 0.76-1.46 [facility] Globulin (S) [Mass/Vol] 2.9 g/dL 2.2-4.2 [facility] Urea nitrogen/Creatinine [Mass ratio] 18.5 mg/mg 10-20 [facility] Laboratory - Hematology and Cell countsOrdered By: Raj Hilliard on 05-17-2023 Erythrocyte distribution width (RBC) [Entitic vol] 44.0 fL 35.1-43.9 [facility] Erythrocyte distribution width (RBC) [Ratio] 12.3 % 11.6-14.6 [facility] Immature granulocytes/100 WBC (Bld) 0.200 % 0.0-0.9 [facility] Comment on above: IG% - Immature Granu locytes (promyelocytes, myelocytes and metamyelocytes) > 1% indicates that a LEFT SHIFT is Present. MCH (RBC) [Entitic mass] 32.0 pg 27.0-32.0 [facility] Nucleated RBC/100 WBC (Bld) [Ratio] 0 % 0-5 [facility] MCHC Auto (RBC) [Mass/Vol]Or dered By: Raj Hilliard on 05-17-2023 MCHC (RBC) [Mass/Vol] 33.0 g/dL 32-36 [facility] No Panel InformationOrdered By: Raj Hilliard on 05-17-2023 Estimated GFR (MDRD) Amer 120 mL/min >60 [facility] Comment on above: GFR Calc Estimated GFR (MDRD) Non-Af Amer 100 mL/min >60 [facility] Comment on above: Non- GFR Calc Thyroid Stimulating Hormone (TSH) 0.16 uIU/mL 0.358-3.74 [facility] Vitamin D 25-Hydroxy 67.0 ng/mL [facility] Comment on above: Vitamin D 25(OH) Sta tus Range Deficiency <20 ng/mL (50nmol/L) Insufficiency 20 - 30 ng/mL (50 - 75 nmol/L) Sufficiency 30 - 100 ng/mL (75 - 250 nmol/L) Toxicity >100 ng/mL (>250 nmol/L) Platelets bldOrdered By: William Hilliard on 05-17-2023 Platelets (Bld) [#/Vol] 266 10*3/uL 150-450 [facility] Serum or plasma albumin antoinette urement (mass/volume)Ordered By: Raj Hilliard on 05-17-2023 Albumin [Mass/Vol] 3.9 g/dL 3.2-5.0 [facility] Serum or plasma albumin/glob ulin mass ratioOrdered By: Raj Hilliard on 05-17-2023 Albumin/Globulin [Mass ratio] 1.3 {ratio} 0.9-2.4 [facility] Serum or plasma calcium antoinette urement (mass/volume)Ordered By: Raj Hilliard on 05-17-2023 Calcium [Mass/Vol] 8.7 mg/dL 8.5-10.1 [facility] Serum or plasma creatinine m easurement (mass/volume)Ordered By: Raj Hilliard on 05-17-2023 Creatinine [Mass/Vol] 0.70 mg/dL 0.55-1.02 [facility] Comment on above: The validity of the calculated GFR & GFRAA in patients over 70 years has not been determined. Clinical correlation is essential. Serum or plasma urea nitroge n measurement (mass/volume)Ordered By: Raj Hilliard on 05-17-2023 Urea nitrogen [Mass/Vol] 13 mg/dL 7-18 [facility] Thin prep Papanicolaou smear with manual screeningOrdered By: Raj Hilliard on 05-17-2023 Thin prep Papanicolaou smear with manual screening 14 U/L 15-37 [facility] Thin prep Papanicolaou smear with manual screening 5 5-15 [facility] Absolute lymphocyte counton 10-20-2022 Lymphocytes Auto (Unsp spec) [#/Vol] 1.56 10*3/uL 0.83-4.51 [facility] Basophil percentageon 2022 Basophils/100 WBC (Bld) 0.8 % 0-1 [facility] Bilirubin [Mass/Vol] 0.40 mg/dL 0.20-1.00 [facility] Comment on above: For patients on eltr ombopag therapy, use of Dimension [place] TBIL is not recommended. Chloride [Moles/Vol] 105 mmol/L 98-107 [facility] Cholesterol [Mass/Vol] 175 mg/dL <200 [facility] Comment on above: <200 mg/dL Desirable 200-240 mg/dL Borderline >240 mg/dL High Risk Eosinophils/100 WBC (Bld) 3.4 % 0-5 [facility] Glucose [Mass/Vol] 88 mg/dL 74-106 [facility] Neutrophils (Bld) [#/Vol] 1.7 10*3/uL 2.0-7.7 [facility] Neutrophils/100 WBC (Bld) 44.9 % 47-70 [facility] Potassium [Moles/Vol] 3.8 mmol/L 3.5-5.1 [facility] Protein [Mass/Vol] 6.8 g/dL 6.4-8.2 [facility] Sodium [Moles/Vol] 137 mmol/L 136-145 [facility] Triglyceride [Mass/Vol] 40 mg/dL <199 [facility] Comment on above: The drugs N-Acetylcy steine and Metamizole may falsely depress this assay.Serum Triglycerides Reference Interval Normal <150 mg/dL Borderline high 150 - 199 mg/dL High 200 - 499 mg/dL Very High > or = 500 mg/dL WBC (Bld) [#/Vol] 3.9 10*3/uL 4.4-11.0 [facility] Blood erythrocytes count (nu mber/volume)on 10-20-2022 RBC (Bld) [#/Vol] 4.02 10*6/uL 4.2-5.4 [facility] Blood hemoglobin measurement (mass/volume)on 10-20-2022 Hemoglobin (Bld) [Mass/Vol] 13.2 g/dL 12.0-15.0 [facility] Blood lymphocytes/100 leukoc yteson 10-20-2022 Lymphocytes/100 WBC (Bld) 40.5 % 19-41 [facility] Blood monocytes/100 leukocyt eson 10-20-2022 Monocytes/100 WBC (Bld) 10.1 % 0-10 [facility] Blood platelet mean volumeon 10-20-2022 Platelet mean volume (Bld) [Entitic vol] 9.8 fL 6.2-12.0 [facility] Determination of erythrocyte mean corpuscular volume (MCV)on 10-20-2022 MCV (RBC) [Entitic vol] 98.8 fL 81-99 [facility] Hematocrit Auto (Bld) [Volum e fraction]on 10-20-2022 Hematocrit (Bld) [Volume fraction] 39.7 % 37-47 [facility] Laboratory - Chemistry and C hemistry - challengeon 10-20-2022 ALP [Catalytic activity/Vol] 41 U/L 45-117 [facility] ALT [Catalytic activity/Vol] 45 U/L 13-56 [facility] CO2 [Moles/Vol] 27.0 mmol/L 21.0-32.0 [facility] Free T4 [Mass/Vol] 1.07 ng/dL 0.76-1.46 [facility] Globulin (S) [Mass/Vol] 2.9 g/dL 2.2-4.2 [facility] Urea nitrogen/Creatinine [Mass ratio] 22.6 mg/mg 10-20 [facility] Laboratory - Hematology and Cell countson 10-20-2022 Erythrocyte distribution width (RBC) [Entitic vol] 44.6 fL 35.1-43.9 [facility] Erythrocyte distribution width (RBC) [Ratio] 12.2 % 11.6-14.6 [facility] Immature granulocytes/100 WBC (Bld) 0.300 % 0.0-0.9 [facility] Comment on above: IG% - Immature Granu locytes (promyelocytes, myelocytes and metamyelocytes) > 1% indicates that a LEFT SHIFT is Present. MCH (RBC) [Entitic mass] 32.8 pg 27.0-32.0 [facility] Nucleated RBC/100 WBC (Bld) [Ratio] 0 % 0-5 [facility] MCHC Auto (RBC) [Mass/Vol]on 10-20-2022 MCHC (RBC) [Mass/Vol] 33.2 g/dL 32-36 [facility] No Panel Informationon 10-20 Estimated GFR (MDRD) Amer 130 mL/min >60 [facility] Comment on above: GFR Calc Estimated GFR (MDRD) Non-Af Amer 107 mL/min >60 [facility] Comment on above: Non- GFR Calc Free Triiodothyronine (T3) pg/dL 2.4 pg/mL 2.18-3.98 [facility] Thyroid Stimulating Hormone (TSH) 0.20 uIU/mL 0.358-3.74 [facility] Vitamin D 25-Hydroxy 41.7 ng/mL [facility] Comment on above: Vitamin D 25(OH) Sta tus Range Deficiency <20 ng/mL (50nmol/L) Insufficiency 20 - 30 ng/mL (50 - 75 nmol/L) Sufficiency 30 - 100 ng/mL (75 - 250 nmol/L) Toxicity >100 ng/mL (>250 nmol/L) Platelets bldon 10-20-2022 Platelets (Bld) [#/Vol] 272 10*3/uL 150-450 [facility] Serum or plasma IgA measurem ent (mass/volume)on 10-20-2022 IgA [Mass/Vol] 129 mg/dL 87-352 [facility] Serum or plasma IgG measurem ent (mass/volume)on 10-20-2022 IgG [Mass/Vol] 685 mg/dL 586-1602 [facility] Serum or plasma IgM measurem ent (mass/volume)on 10-20-2022 IgM [Mass/Vol] 25 mg/dL 26-217 [facility] Comment on above: Result confirmed on concentration.Performed at: [facility] [id number] [place], [place] [id number] Director: Juice Benitez PhD, Phone: [phone] Serum or plasma albumin antoinette urement (mass/volume)on 10-20-2022 Albumin [Mass/Vol] 3.9 g/dL 3.2-5.0 [facility] Serum or plasma albumin/glob ulin mass ratioon 10-20-2022 Albumin/Globulin [Mass ratio] 1.3 {ratio} 0.9-2.4 [facility] Serum or plasma calcium antoinette urement (mass/volume)on 10-20-2022 Calcium [Mass/Vol] 8.2 mg/dL 8.5-10.1 [facility] Serum or plasma cholesterol in HDL measurement (mass/volume)on 10-20-2022 Cholesterol in HDL [Mass/Vol] 82 mg/dL >40 [facility] Comment on above: The drugs N-Acetylcy steine and Metamizole may falsely depress this assay. Reference Range HDL <40 mg/dL Low HDL Cholesterol HDL >or= 60 mg/dL High HDL Cholesterol Serum or plasma cholesterol in VLDL measurement (mass/volume)on 10-20-2022 Cholesterol in VLDL [Mass/Vol] 8 mg/dL 5-40 [facility] Serum or plasma creatinine m easurement (mass/volume)on 10-20-2022 Creatinine [Mass/Vol] 0.66 mg/dL 0.55-1.02 [facility] Comment on above: The validity of the calculated GFR & GFRAA in patients over 70 years has not been determined. Clinical correlation is essential. Serum or plasma low density lipoprotein (LDL) cholesterol measurement (mass/volume)on 10-20-2022 Cholesterol in LDL [Mass/Vol] 85 mg/dL 0-130 [facility] Serum or plasma urea nitroge n measurement (mass/volume)on 10-20-2022 Urea nitrogen [Mass/Vol] 15 mg/dL 7-18 [facility] Thin prep Papanicolaou smear with manual screeningon 10-20-2022 Thin prep Papanicolaou smear with manual screening 21 U/L 15-37 [facility] Thin prep Papanicolaou smear with manual screening 5 5-15 [facility] Immunoglobulins GAMon 2021 IgA [Mass/Vol] 166 mg/dL Normal 70-400 [facility] Comment on above: Performed By: #### S ERIMM #### [facility] Routine Lab [address] [place], [place] [address] IgG [Mass/Vol] 720 mg/dL Normal 700-1600 [facility] Comment on above: Performed By: #### S ERIMM #### [facility] Routine Lab [address] [place], [place] [address] IgM [Mass/Vol] 33 mg/dL Low 40-230 [facility] Comment on above: Performed By: #### S ERIMM #### [facility] Routine Lab [address] [place], [place] [address] Immunoglobulins GAMon 2020 IgA [Mass/Vol] 162 mg/dL Normal 70-400 [facility] Comment on above: Performed By: #### S ERIMM #### [facility] Routine Lab [address] [place], [place] [address] IgG [Mass/Vol] 743 mg/dL Normal 700-1600 [facility] Comment on above: Performed By: #### S ERIMM #### [facility] Routine Lab [address] [place], [place] [address] IgM [Mass/Vol] 39 mg/dL Low 40-230 [facility] Comment on above: Performed By: #### S ERIMM #### [facility] Routine Lab [address] [place], [place] [address] HCV AB CONFIRMon 12-01-2018 HCV AB CONFIRM SEE SEPARATE REPORT Normal [facility] Comment on above: Result Comment: Test performed at: [facility] () [address] [address] LINO GUILLERMO MD Performed By: #### L [id number] #### [place] [address] ANTI-HBson 11-29-2018 ANTI-HBs 411.8 mIU/L Normal [facility] Comment on above: Result Comment: <8.5 [...] 304.0465, L304.0460 #### [facility] - [facility] [address] [place] [address] HEPATITIS BsAgon 11-29-2018 HEPATITIS BsAg Negative Normal NEGATIVE [facility] Comment on above: Performed By: #### L 304.0465, L304.0460 #### [facility] - [facility] [address] [place] [address] Vital Signs Date Time Vital Sign Value Performing Clinician Faci lity 05-17-2023 13:57-0400 Body mass index (BMI) [Ratio] 220.3 kg/m2 Dr. Adonis Almazan Work Phone: [facility] 05-17-2023 13:57-0400 Diastolic blood pressure 71 mm[Hg] Dr. Adonis Almazan Work Phone: [facility] 05-17-2023 13:57-0400 Systolic blood pressure 122 mm[Hg] Dr. Adonis Almazan Work Phone: [facility] 05-17-2023 13:30-0400 Body height 167.[address] Adonis Almazan Work Phone: [facility] 05-17-2023 13:30-0400 Body temperature 98.4 [degF] Dr. Adonis Almazan Work Phone: [facility] 05-17-2023 13:30-0400 Body weight 619.[address] Adonis Almazan Work Phone: [facility] 05-17-2023 13:30-0400 Heart rate 66 /min Dr. Adonis Almazan Work Phone: [facility] 05-17-2023 13:30-0400 Respiratory rate 14 /min Dr. Adonis Almazan Work Phone: [facility] 05-17-2023 13:30-0400 SaO2% (BldA) [Mass fraction] 98 % Dr. Adonis Almazan Work Phone: [facility] 03-16-2022 14:36-0400 Body height 167.[address] Adonis Almazan Work Phone: [facility] Work Phone: 03-16-2022 14:36-0400 Body mass index (BMI) [Ratio] 20.8 kg/m2 Dr. Adonis Almazan Work Phone: [facility] Work Phone: 03-16-2022 14:36-0400 Body temperature 96.9 [degF] Dr. Adonis Almazan Work Phone: [facility] Work Phone: 03-16-2022 14:36-0400 Body weight 58.[address] Adonis Almazan Work Phone: [facility] Work Phone: 03-16-2022 14:36-0400 Diastolic blood pressure 82 mm[Hg] Dr. Adonis Almazan Work Phone: [facility] Work Phone: 03-16-2022 14:36-0400 Heart rate 75 /min Dr. Adonis Almazan Work Phone: [facility] Work Phone: 03-16-2022 14:36-0400 Respiratory rate 18 /min Dr. Adonis Almazan Work Phone: [facility] Work Phone: 03-16-2022 14:36-0400 SaO2% (BldA) [Mass fraction] 96 % Dr. Adonis Almazan Work Phone: [facility] Work Phone: 03-16-2022 14:36-0400 Systolic blood pressure 125 mm[Hg] Dr. Adonis Almazan Work Phone: [facility] Work Phone: Encounters Encounter Date Encounter Type Care Provider Facility Start: 05-18-2025 End: 05-18-2025 ambulatory ADONIS Palm ALMAZAN [facility] Start: 05-14-2025 End: 05-14-2025 ambulatory Adonis Almazan Facility:[facility] Start: 05-14-2025 End: 05-14-2025 ambulatory Adonis Almazan Facility:[facility] Start: 05-03-2025 End: 05-03-2025 ambulatory ADONIS Palm [facility] Start: 10-09-2024 End: 10-09-[address] Adonis Almazan MD Work Phone: [facility] Work Phone: Start: 10-09-2024 End: 10-09-2024 Patient encounter procedure RYLEE CALVILLO -Laboratory Work Phone: Start: 10-09-2024 End: 10-09-2024 ambulatory Adonis Almazan Facility:[facility] Start: 07-30-2024 End: 07-30-2024 Patient encounter procedure RYLEE GONCALVESC -MRI - [facility] Work Phone: Start: 07-30-2024 End: 07-30-2024 ambulatory Adonis Almazan Facility:[facility] Start: 05-17-2023 End: 05-17-[address] Adonis Almazan Work Phone: [facility] Work Phone: Start: 05-17-2023 End: 05-17-[address] Adonis Almazan Work Phone: [facility] Work Phone: Start: 10-20-2022 End: 10-20-2022 ambulatory [facility] Work Phone: Start: 10-20-2022 End: 10-20-2022 Patient encounter procedure [facility]-Laboratory Start: 05-07-2022 End: 05-07-[address] Adonis Almazan Work Phone: [facility] Work Phone: Start: 05-07-2022 End: 05-07-[address] Adonis Almazan Work Phone: [facility]-MRI - [facility] Start: 03-16-2022 End: 03-16-[address] Adonis Almazan Work Phone: [facility] Start: 08-20-2018 Patient encounter procedure PINEDA MARTÍNEZ [...] Activity Detail Author Start: 05-17-2023 Immunoglobulin measurement [facility] IgA [Mass/volume] in Serum or Plasma [facility] IgE [Units/volume] i n Serum or Plasma [facility] IgG [Mass/volume] in Serum or Plasma [facility] IgM [Mass/volume] in Serum or Plasma [facility] Immunizations Immunization Date Immunization Notes Care Provider Fa cility 04-27-[address] Adonis Almazan Work Phone: [facility] Payers Date Payer Category Payer Unknown [id number] 2018 Self-pay 2016 Unknown [employer] [id number] 1986 Unknown [id number] 2.16.8 [id number] 1986 Unknown [id number] 2.16.8 [id number] 1986 Unknown [id number] 2.16.8 [id number] Unknown [id number] Unknown [id number] Unknown [id number] 2.16.8 [id number] Unknown [id number] 2.16.8 [id number] Unknown [id number] 2.16.8 [id number] Unknown [id number] 2.16.8 [id number] Social History Date Type Detail Facility Start: 03-16-2022 End: 05-17-2023 Tobacco smoking status NHIS Unknown if ever smoked [facility] Start: 07-29-2019 Non-smoker [facility] Start: 1985 Sex Assigned At Female [facility] Start: 05-17-2023 Tobacco smoking stat us RIIS Never smoked tobacco (finding) [facility] Start: 10-16-2024 Sex Female (finding) [facility] Medical Equipment Procedure Code Equipment Code Equipment [...] Evaluation note Diagnosis Onset Date Postsurgical hypothyroidism chronic [facility] Work Phone: Evaluation note Note Date & Type Note Facility Evaluation note No assessment information availa ble [facility] Work Phone: Evaluation note Note Date & Type Note Facility Evaluation note Diagnosis Onset Date Numbness and tingling acute Postsurgical hypothyroidism [facility] Work Phone: Reason for referral (narrative) Note Date & Type Note Facility Reason for referral (narrative) No reason for referral information available [facility] Work Phone: Summary Purpose Family History No Family History Records FoundNo Family History Records FoundNo Family History Records FoundNo Family History Records FoundNo Family History Records FoundNo Family History Records Found Advance Directives No Advanced Directives Records Found Advance Directive Response Recorded Date/ Time Living Will No August 05 12:19pm Power of Plant Guard No August 05, 2019 12:19pm Chief Complaint [...] section and content) DATE CREATED AUTHOR 09/04/2018 [facility] ([place]) DATE CREATED AUTHOR AUTHOR'S ORGANIZ ATION 12/12/2018 [facility] DATE CREATED AUTHOR AUTHOR'S ORGANIZ ATION 07/30/2021 [facility] DATE CREATED AUTHOR AUTHOR'S ORGANIZ ATION 05/06/2025 [facility] DATE CREATED AUTHOR AUTHOR'S ORGANIZ ATION 05/20/2025 [facility] DATE CREATED AUTHOR AUTHOR'S ORGANIZ ATION 05/27/2025 [facility] Goals (unrecognized section and content) Goals [...] 30, 2024 End: July 30, 2024 KARLI LIECA Referring Provider Active Sta rt: July 30, [...] BE BASED ON THE PRIMARY CLINICAL RECORDS. [facility], [facility]. provides no warranty or guarantee of the accuracy or completeness of information in this document.
== END | disposition home or self-care (01) ==
LOC: LAB 10:25
PROVIDERS: PCP Family Medicine; Referring Provider Internal Medicine Endocrinology, Diabetes & Metabolism; Visit Provider Internal Medicine Endocrinology, Diabetes & Metabolism
DX: E89.0 Postprocedural hypothyroidism (principal)
CPT/HCPCS: 36415; 84439; 84443